=== PATIENT | male | born 1955 | race Caucasian/White ===

== ENCOUNTER → 2019-08-05 09:50 | Outpatient (BNVA) | payer MEDICARE, MEDICAID, SELFPAY | PROVIDERS: Family Provider Family Medicine; PCP Family Medicine; Visit Provider Anesthesiology | DX: G89.29 Other chronic pain (principal); M54.16 Radiculopathy, lumbar region; M19.90 Unspecified osteoarthritis, unspecified site; M79.651 Pain in right thigh; M79.652 Pain in left thigh; F17.210 Nicotine dependence, cigarettes, uncomplicated; Z79.891 Long term (current) use of opiate analgesic | CPT/HCPCS: 99214 ==

== ENCOUNTER → 2019-10-01 09:36 | Outpatient (BNVA) | payer MEDICARE, MEDICAID, SELFPAY | PROVIDERS: Family Provider Family Medicine; PCP Family Medicine; Visit Provider Nurse Practitioner | DX: M54.16 Radiculopathy, lumbar region (principal); F17.210 Nicotine dependence, cigarettes, uncomplicated; Z71.6 Tobacco abuse counseling; Z79.891 Long term (current) use of opiate analgesic | CPT/HCPCS: 99213; 99214 ==

== ENCOUNTER → 2019-12-04 10:40 | Outpatient (BNVA) | payer MEDICARE, MEDICAID, SELFPAY | PROVIDERS: Family Provider Family Medicine; PCP Family Medicine; Visit Provider Anesthesiology | DX: G89.29 Other chronic pain (principal); M54.16 Radiculopathy, lumbar region; M54.17 Radiculopathy, lumbosacral region; M54.9 Dorsalgia, unspecified; M19.90 Unspecified osteoarthritis, unspecified site; F17.210 Nicotine dependence, cigarettes, uncomplicated; Z79.891 Long term (current) use of opiate analgesic; Z71.6 Tobacco abuse counseling | CPT/HCPCS: 99214 ==

== ENCOUNTER → 2019-12-30 10:24 | Outpatient (BNVA) | payer MEDICARE, MEDICAID, SELFPAY | PROVIDERS: Family Provider Family Medicine; PCP Family Medicine; Visit Provider Anesthesiology | DX: G89.29 Other chronic pain (principal); M54.16 Radiculopathy, lumbar region; M54.9 Dorsalgia, unspecified; F17.210 Nicotine dependence, cigarettes, uncomplicated; Z79.891 Long term (current) use of opiate analgesic | CPT/HCPCS: 99213; 99214 ==

== ENCOUNTER → 2020-03-10 14:26 | Outpatient (BNVA) | payer MEDICARE, MEDICAID, SELFPAY | PROVIDERS: Family Provider Family Medicine; PCP Family Medicine; Visit Provider Anesthesiology | DX: G89.29 Other chronic pain (principal); M54.16 Radiculopathy, lumbar region; M54.17 Radiculopathy, lumbosacral region; M54.9 Dorsalgia, unspecified; F17.210 Nicotine dependence, cigarettes, uncomplicated; Z79.891 Long term (current) use of opiate analgesic | CPT/HCPCS: 99213; 99214 ==

== ENCOUNTER 2020-03-23 09:18 | Outpatient (CLI) | payer MEDICARE, MEDICAID, SELFPAY ==
--- NOTE | 2020-03-23 09:23 | CT_ITS ---
WS: [id number] LDCT LUNG CANCER SCREENING TECHNIQUE: Noncontrast CT of the chest with coronal and sagittal reformatted images. CLINICAL INFORMATION: NICOTINE DEPENDENCE,CIGARETTES COMPARISON: None. DLP: 57.92 mGy.cm DIvol: 1.[address] scans at [facility] use at least one of these dose optimization techniques: automat ed exposure control; mA and/or kV adjustment per patient size (includes targeted exams where dose is matched to clinical indication); or iterative reconstruction. FINDINGS: No suspicious pulmonary parenchymal normalities. Slight atelectasis in lung bases. Aortic calcificati on. No mediastinal or hilar lymphadenopathy. No axillary lymphadenopathy. Chronic anterior wedging in the mid thoracic spine appears unchanged since 2016. CT/CT lung screening [id number] IMPRESSION: LUNG-RADS: 1-Negative FOLLOW UP: 12 Month: Continue annual screening with LDCT
== END 2020-03-23 09:19 | disposition home or self-care (01) ==
LOC: CT 09:20
PROVIDERS: PCP Family Medicine; Visit Provider Family Medicine
DX: Z12.2 Encounter for screening for malignant neoplasm of respiratory organs (principal); F17.210 Nicotine dependence, cigarettes, uncomplicated
CPT/HCPCS: G0297

== ENCOUNTER → 2020-05-10 15:23 | Outpatient (BNVA) | payer MEDICARE, MEDICAID, SELFPAY | PROVIDERS: PCP Family Medicine; Referring Provider Family Medicine; Visit Provider Dermatology | DX: R21 Rash and other nonspecific skin eruption (principal) | CPT/HCPCS: 87220 ==

== ENCOUNTER → 2020-06-01 11:31 | Outpatient (BNVA) | payer MEDICARE, MEDICAID, SELFPAY | PROVIDERS: PCP Family Medicine; Visit Provider Nurse Practitioner | DX: G89.29 Other chronic pain (principal); M25.512 Pain in left shoulder; M54.16 Radiculopathy, lumbar region; M54.17 Radiculopathy, lumbosacral region; M54.9 Dorsalgia, unspecified; F17.210 Nicotine dependence, cigarettes, uncomplicated; Z79.891 Long term (current) use of opiate analgesic | CPT/HCPCS: 99213; 99214 ==

== ENCOUNTER → 2020-06-03 11:30 | Outpatient (BNVA) | payer MEDICARE, MEDICAID, SELFPAY | PROVIDERS: PCP Family Medicine; Visit Provider Nurse Practitioner Family | DX: M54.17 Radiculopathy, lumbosacral region (principal); I50.32 Chronic diastolic (congestive) heart failure; E78.00 Pure hypercholesterolemia, unspecified | CPT/HCPCS: 80053; 80061; 84439; 84443; 84481 ==

== ENCOUNTER 2020-06-11 14:46 | Outpatient (CLI) | payer MEDICARE, MEDICAID, SELFPAY ==
--- NOTE | 2020-06-11 15:00 | USCV_ITS ---
Jose Luis Kessler Age: 64 Gender: M : 1955 Exam Date: 06/11/2020 14:57 Ordering Phys: Nasra Diaz Technologist: Evelyn Ervin Exam Location: [facility] – [place] Indication: SOB AND WEIGHT GAIN BP: 130 / 70 HR: 77 Rhythm: Sinus Technical Quality: Adequate MEASUREMENTS (Male / Female) Normal Values 2D ECHO LV Diastolic Diameter PLAX 2.9 cm 4.2 - 5.9 / 3.9 - 5.3 cm LV Systolic Diameter PLAX 2.2 cm LV Chamber Size 2.9 cm IVS Diastolic Thickness 1.0 cm 0.6 - 1.0 / 0.6 - 0.9 cm IVS Systolic Thickness 1.6 cm LVPW Diastolic Thickness 1.0 cm 0.6 - 1.0 / 0.6 - 0.9 cm LVPW Systolic Thickness 1.7 cm RV Chamber Size 2.7 cm LVOT Diameter 2.0 cm LV Ejection Fraction 2D Teich 45.3 % LV Ejection Fraction MOD 2C 59.3 % LV Ejection Fraction 2C AL 60.5 % LA Diameter 3.5 cm LA Width 3.2 cm LA Height 3.3 cm RA Width 2.4 cm RA Height 3.7 cm Aorta at Sinotubular Diameter 3.1 cm M-MODE LV Diastolic Diameter MM 4.2 cm 4.2 - 5.9 / 3.9 - 5.3 cm LV Systolic Diameter MM 2.8 cm LV Ejection Fraction MM Teich 61.9 % IVS Diastolic Thickness MM 1.1 cm 0.6 - 1.0 / 0.6 - 0.9 cm IVS Systolic Thickness MM 1.3 cm LVPW Diastolic Thickness MM 1.5 cm 0.6 - 1.0 / 0.6 - 0.9 cm LVPW Systolic Thickness MM 1.6 cm RV Diastolic Diameter MM 0.9 cm Aortic Annulus Diameter 3.5 cm LA Ao Ratio MM 1.1 MV E Point Septal Separation 0.7 cm DOPPLER AV Peak Velocity 129.0 cm/s LVOT Peak Velocity 105.0 cm/s AV Area Cont Eq vti 2.8 cm squared AV Area Cont Eq pk 2.7 cm squared MV Area PHT 3.9 cm squared Mitral E to A Ratio 0.9 MV E' Velocity 54.0 cm/s Mitral E to MV E' Ratio 11.1 Mitral E to LV E' Lateral Ratio 11.9 Mitral E to LV E' Septal Ratio 10.5 TR Peak Velocity 244.3 cm/s TR Peak Gradient 23.9 mmHg TR Mean Velocity 207.5 cm/s TR Mean Gradient 18.7 mmHg TR Velocity Time Integral 81.9 cm TV Peak E Velocity 53.0 cm/s Right Atrial Pressure 3.0 mmHg Pulmonary Artery Systolic Pressu 26.9 mmHg PV Peak Velocity 60.0 cm/s RV Acceleration Time 0.1 s RV Ejection Time 0.3 s RV AcT/ET 0.4 FINDINGS Left Ventricle Normal left ventricular cavity size. Normal left ventricular systolic function. No regional wall motion abnormalities. Left ventricular ejection fraction is estimated at 61 %. Grade I/IV diastolic dysfunction (abnormal relaxation filling pattern), normal to mildly elevated filling pressures. Right Ventricle The right ventricle is normal in size and function. Right Atrium The right atrium is normal in size. Left Atrium The left atrium is normal in size. Mitral Valve Moderately thickened mitral valve. Severe mitral annular calcification. No mitral valve stenosis. Mild to moderatre mitral valve regurgitation. Aortic Valve Structurally normal aortic valve without significant sclerosis or stenosis. There is no aortic regurgitation. Tricuspid Valve Mild tricuspid valve regurgitation. Pulmonic Valve Structurally normal pulmonic valve without significant stenosis. There is no pulmonic regurgitation. Pericardium Normal pericardium without effusion. Aorta Normal ascending aorta dimension. CONCLUSIONS 1-Normal left ventricular cavity size. Normal left ventricular systolic function. No regional wall motion abnormalities. Left ventricular ejection fraction is estimated at 61 %. Grade I/IV diastolic dysfunction (abnormal relaxation filling pattern), normal to mildly elevated filling pressures. 2-Structurally normal aortic valve without significant sclerosis or stenosis. There is no aortic regurgitation. 3-Moderately thickened mitral valve. Severe mitral annular calcification. No mitral valve stenosis. Mild to moderatre mitral valve regurgitation. 4-Mild tricuspid valve regurgitation. 5-There is no pericardial effusion. 6-Pulmonary artery systolic pressure is within normal limits. 7-When compared to the prior echocardiogram dated August 17, 2015 there is mild to moderate mitral valve regurgitation and severe mitral annulus calcification now Luis Irvin MD (Electronically Signed) Final Date: 11 June 2020 20:48 S
== END 2020-06-11 14:47 | disposition home or self-care (01) ==
LOC: US 14:47
PROVIDERS: PCP Family Medicine; Visit Provider Nurse Practitioner Family
DX: I50.32 Chronic diastolic (congestive) heart failure (principal); R06.02 Shortness of breath; I08.1 Rheumatic disorders of both mitral and tricuspid valves; R63.5 Abnormal weight gain
CPT/HCPCS: 80048; 83880; 93306

== ENCOUNTER → 2020-07-27 08:39 | Outpatient (BNVA) | payer MEDICARE, MEDICAID, SELFPAY | PROVIDERS: PCP Family Medicine; Visit Provider Nurse Practitioner | DX: G89.29 Other chronic pain (principal); M54.16 Radiculopathy, lumbar region; M54.17 Radiculopathy, lumbosacral region; M54.9 Dorsalgia, unspecified; M79.673 Pain in unspecified foot; F17.210 Nicotine dependence, cigarettes, uncomplicated; Z79.891 Long term (current) use of opiate analgesic | CPT/HCPCS: 99213 ==

== ENCOUNTER → 2020-08-04 10:07 | Outpatient (BNVA) | payer MEDICARE, MEDICAID, SELFPAY | PROVIDERS: PCP Family Medicine; Referring Provider Family Medicine; Visit Provider Podiatrist Foot & Ankle Surgery | DX: M79.672 Pain in left foot (principal); M21.612 Bunion of left foot; M19.072 Primary osteoarthritis, left ankle and foot | CPT/HCPCS: 73630 ==

== ENCOUNTER → 2020-09-24 10:07 | Outpatient (BNVA) | payer MEDICARE, MEDICAID, SELFPAY | PROVIDERS: PCP Family Medicine; Visit Provider Anesthesiology | DX: G89.29 Other chronic pain (principal); M54.16 Radiculopathy, lumbar region; M54.17 Radiculopathy, lumbosacral region; M54.9 Dorsalgia, unspecified; F17.210 Nicotine dependence, cigarettes, uncomplicated; Z79.891 Long term (current) use of opiate analgesic | CPT/HCPCS: 99213 ==

== ENCOUNTER 2020-10-05 14:21 | Outpatient (CLI) | payer MEDICARE, MEDICAID, SELFPAY | END 2020-10-05 14:22 | disposition home or self-care (01) | LOC: WOUND 14:23 | PROVIDERS: PCP Family Medicine; Visit Provider Thoracic Surgery (Cardiothoracic Vascular Surgery) | DX: L97.522 Non-pressure chronic ulcer of other part of left foot with fat layer exposed (principal) | CPT/HCPCS: 11042; G0463 ==

== ENCOUNTER 2020-10-19 13:37 | Outpatient (CLI) | payer MEDICARE, MEDICAID, SELFPAY | END 2020-10-19 13:38 | disposition home or self-care (01) | LOC: WOUND 13:38 | PROVIDERS: PCP Family Medicine; Visit Provider Thoracic Surgery (Cardiothoracic Vascular Surgery) | DX: L97.522 Non-pressure chronic ulcer of other part of left foot with fat layer exposed (principal) | CPT/HCPCS: 11042 ==

== ENCOUNTER 2020-10-26 13:10 | Outpatient (CLI) | payer MEDICARE, MEDICAID, SELFPAY | END 2020-10-26 13:11 | disposition home or self-care (01) | PROVIDERS: PCP Family Medicine; Visit Provider Thoracic Surgery (Cardiothoracic Vascular Surgery) | DX: L97.522 Non-pressure chronic ulcer of other part of left foot with fat layer exposed (principal); Z20.822 Contact with and (suspected) exposure to COVID-19; Z11.52 Encounter for screening for COVID-19 | CPT/HCPCS: 11042; 87635 ==

== ENCOUNTER 2020-10-26 14:26 | Outpatient (CLI) | payer MEDICARE, MEDICAID, SELFPAY ==
[2020-10-26 14:58] LABS: Basophils % 0.4 %; Eosinophils # 0.2 10^3/uL (0.0-0.8); Eosinophils % 1.6 %; Hematocrit 43.8 % (42.0-52.0); Hemoglobin 14.6 g/dL (11.7-16.6); Lymphocytes # 2.2 10^3/uL (0.8-4.8); Mean Corpuscular HGB Conc 33.3 g/dL (30.0-36.0); Mean Corpuscular Hemoglobin 31.2 pg (28.0-34.0); Mean Corpuscular Volume 93.6 fL (80-94); Mean Platelet Volume 9.7 fL (7.4-10.4); Monocytes # 0.6 10^3/uL (0.2-0.9); Monocytes % 5.7 %; Neutrophils # 7.37 10^3/uL (1.8-7.7); Nucleated Red Blood Cells % 0 %; Platelet Count 238 10^3/cmm (130-400); Red Blood Count 4.68 10^6/uL (4.1-5.3); Red Cell Distribution Width 13.4 % (12.1-15.1); White Blood Count 10.4 10^3/uL (4.0-10.0)
[2020-10-26 15:13] LABS: INR 1.06 (0.83-1.21); Prothrombin Time (Patient) 14.1 Seconds (12.0-15.1)
[2020-10-26 15:19] LABS: Anion Gap 13.8 (5-19); Blood Urea Nitrogen 19 mg/dL (8-23); Calcium 9.5 mg/dL (8.5-10.5); Carbon Dioxide 33 mmol/L (22-29); Chloride 98 mmol/L (98-107); Glomerular Filtration Rate 66.8 mL/min (90-130); Glucose 131 mg/dL (65-115); Osmolality Calculated 296 mOsm/kg (285-295); Potassium 3.8 mmol/L (3.5-5.1); Sodium 141 mmol/L (136-145)
== END 2020-10-26 14:27 | disposition home or self-care (01) ==
PROVIDERS: PCP Family Medicine; Visit Provider Internal Medicine Cardiovascular Disease
DX: I73.9 Peripheral vascular disease, unspecified (principal)
CPT/HCPCS: 80048; 85025; 85610

== ENCOUNTER 2020-11-01 08:56 | Day surgery (SDC) | payer MEDICARE, MEDICAID, SELFPAY ==
[2020-11-01] VITALS (51 sets, daily range): BP systolic 112–164; BP diastolic 62–106; PULSE 76–92; RESP 13–37; TEMP 36.6; O2SAT 90–94; BMI 35.6
--- NOTE | 2020-11-01 09:00 | XACV_ITS ---
Ht: 175 cm Wt: 109 kg BSA: 2.35 m2 Any Known Allergies: Other Gender: Male : 1955 Exam Type: Invasive Peripheral Vascular Procedure(s): Procedure Description: Peripheral Cath Diagnostic Procedure Procedure Description: Abdominal aortic angiography Procedure Description: Lower extremities' angiography Exam Priority: Routine Lower Extremity Diagnostic Findings Reason for peripheral angiogram: Critical limb ischemia of left foot/nonhealing ulcerThrough right common femoral approach abdominal aortic angiogram was performed. Abdominal aortic luminal irregularity without aneurysm. Renal arteries not well visualizedRight common iliac proximal moderate lesion, right external iliac has mild to moderate proximal lesion, right common femoral profundofemoral SFA popliteal and tibioperoneal trunk has luminal irregularity without significant stenosis. Below the knee three-vessel runoff noted.Left common iliac luminal irregularity, left external/internal iliac luminal irregularity, left common femoral luminal irregularity left profundofemoral luminal irregularity. Left SFA flush occluded from ostial to distal segment collateral seen to reconstitute mid popliteal artery from profunda. Tibioperoneal trunk with two-vessel runoff visualized posterior tibial artery possible occluded in the proximal to mid segment reconstituting the distal. Anterior tibial not well visualized after the proximal segment.. Lower Extremity Interventional Findings Unsuccessful attempt to cross the SFA was performed . Due to flush occlusion of the SFA were not able to cross the ostium . We will bring patient back for popliteal approach .. Recommendations Usual post-cath care, stage percutaneous intervention through popliteal approach of the left SFA. Hemodynamic Data Phase:Rest AO : 103.0 / 60.0 ( 81.0 ) @ 10:20:00 AM 118.0 / 56.0 ( 83.0 ) @ 10:45:00 AM Access Site Site: Right Femoral artery Sheath Size: 6 Fr Hemost... Method: Suture Hemost... Success: Successful Procedure Details Findings Procedure Consent Obtained. Pre-Procedure Time Out. Identified patient by full name and date of as verbalized by the patient/guarantor. Does the consent match the physician's order: Yes. Accurate & Complete Informed Consent: Yes. Inpatient/Outpatient History & Physical on Chart: Yes. If H&P is completed, is and addenduem needed: N/A; If yes, is the addendum complete: N/A. Visualize and Verify Site with Patient/Guarantor: N/A. Relevant Radiology Images available: Yes. Pre-op teaching completed and patient verbalized understanding. The risks, benefits, and alternatives of sedation and/or procedure were discussed by physician. The patient agrees to continue. PERRLA. Strong, equal hand head porter bilaterally. Lungs clear x 5 lobes. IV Fluids: 0.9% NaCl at KVO. 0 mL infused prior to rd lab technician. Oxygen started at 2liters/min via nasal canula. bilateral groins was prepped with chloroprep then draped in the usual sterile fashion. Procedure started. Physician arrived. Baseline sample Acquired. HR: 82 BPM. Equipment: 6F - Femoral. Cardiac Cath Pack. ACIST Manifold Kit Model BT 2000. Heparinized Saline (2 units/mL), 1000 mL bag. Kit, Micropuncture. Physician scrubbed in. Immediate Pre-Procedure Time Out. Correct Patient: Yes; Correct Procedure: Yes; Correct Site: Yes; Correct Patient Position: Yes; Correct Supplies: Yes; Dried Flammable Prep: Yes; Blood Products Available: No;. Lidocaine 1% infiltrated to the right groin. Arterial access obtained with micropuncture set. A 5FrFr UF catheter in over wire. Abdominal aortogram performed in AP @ 10 mL/sec for a total of 30 mL. glide wire inserted. left leg runoff 10ml/sec for a total of 30ml. glidewire inserted. Catheter out. 6fr short sheath exchanged for a 6fr long sheath. Anesthesiologist Paged. hand injection through sheath. glidewire out. posterior tibial area was prepped with chloroprep then draped in the usual sterile fashion. Lidocaine 1% infiltrated to the left pt. ultrasound arrived. Sheath upsized to a 6 Fr. Sheath injected in Right common femoral artery and runoff performed. Sheath(s) sutured into position with 2-0 silk and sterile 4x4's and Op-site applied over the site. No oozing or signs and symptoms of hematoma noted. Arterial sheath flushed and connected to tranducer and pressure bag with heparinized saline. Post Procedure: Pulses reassessed and unchanged. PERRLA. Strong, equal hand head porter bilaterally. No VTE prophylaxis required. A Suture was successful obtaining hemostatsis at the Right Femoral artery insertion site. Medication's Wasted: Heparin = 4000 units. Medication's Wasted: Other = Fentanyl 50mcg Versed 1 mg. Total IV fluids: 100 mL. Contrast type used: Visipaque 320 mgI/mL, 500 mL bottle. Estimated blood loss: 5mL-10mL. Procedure completed. Patient transferred by bed to 1st floor. Procedure Medications Start: 10:57 AM Stop: 10:57 AM Medication: Versed Amount: 1 mg Route: I.V. Start: 10:57 AM Stop: 10:57 AM Medication: Fentanyl Amount: 50 mcg Route: I.V. Start: 11:02 AM Stop: 11:02 AM Medication: Versed Amount: 1 mg Route: I.V. Start: 11:02 AM Stop: 11:02 AM Medication: Fentanyl Amount: 50 mcg Route: I.V. Start: 11:08 AM Stop: 11:08 AM Medication: Versed Amount: 1 mg Route: I.V. Start: 11: AM Stop: AM Medication: Fentanyl Amount: 50 mcg Route: I.V. Start: 11: AM Stop: AM Medication: Versed Amount: 1 mg Route: I.V. Start: : AM Stop: AM Medication: Fentanyl Amount: 50 mcg Route: I.V. Start: : AM Stop: AM Medication: Fentanyl Amount: 50 mcg Route: I.V. Start: : AM Stop: AM Medication: Heparin Amount: 5000 units Route: I.V. Start: 11:33 AM Stop: : AM Medication: Versed Amount: 1 mg Route: I.V. Start: 11: AM Stop: :33 AM Medication: Fentanyl Amount: 50 mcg Route: I.V. I, the attending physician, have reviewed and verified all procedure medications. Yes, all medications given per verbal order History/Risk Factors Hypertension: Yes Dyslipidemia: Yes Peripheral Arterial Disease (PAD): Yes Obesity: Yes Renal Disease: No Tobacco Use: Current/Recent(w/in 1 year) Prior Interventions PCI: No CABG: No Valve Surgery: No Report Signatures Finalized by Luis Irvin MD on 11/09/2020 09:51 PM
--- NOTE | 2020-11-01 11:02 | W.PM.OPSUD ---
Surgery/Procedure H&P Update DATE OF PROCEDURE: November 01, 2020 DATE H&P PERFORMED: 10/18/20 H&P UPDATE INFORMATION: I have reviewed H&P completed within last 30 days, I have examined patient prior to procedure and No changes to prior documentation PREOP DIAGNOSIS: Critical limb ischemia of left foot PLANNED PROCEDURE: Operation Date: 11/01/20 10:00 Proposed Procedures p Peripheral Diagnostic 17952 i73.9(Not Applicable) - Luis Irvin MD PATIENT REASSESSED PRIOR TO SEDATION, WITH NO CHANGE NOTED: Yes PHYSICAL EXAM: alert, oriented x 3, clear to auscultation bilaterally and regular rate & rhythm AIRWAY EVAL/ANESTHESIA PLAN: ASA II, Risks, benefits & alternatives of sedation and/or procedure discussed and Patient agrees to continue as planned
--- NOTE | 2020-11-01 12:30 | PC.NURSE ---
Received patient from clinical laboratory aide. Patient has 6f sheath in R groin with pressure bag connected. Patient dressing is intact and no drainage present. Dorsalis pedis and postreior tibial pulses both doppled bilaterally and are faint, but present. VS are stable, patient is resting with eyes closed, even and unlabored breathing.
[2020-11-01] MEDS: gabapentin 400 mg Capsule 800 MG PO ×2 (15:02→20:53)
[2020-11-01 15:18] LABS: Partial Thromboplastin Time 25.9 SECONDS (23.9-36.7)
[2020-11-01] MEDS: fentaNYL 50 mcg/mL INJ 2mL IVP (16:50)
--- NOTE | 2020-11-01 16:55 | PC.NURSE ---
Patient pre-medicated with Fentanyl. Manual pressure held et right femoral sheath removed. Will maintain manual pressure until hemostatsis achieved.
--- NOTE | 2020-11-01 17:15 | PC.NURSE ---
Right groin site covered with pressure dressing. No bleeding or hematoma present. Educated patient on keeping right leg straight et HOB <30 degrees for 6 hours. Patient tolerated well.
[2020-11-01] MEDS: ketoconazole Cream 15 gm 1 APPLIC TOPICAL (17:47)
--- NOTE | 2020-11-01 18:40 | PC.RESP ---
SMOKING CESSATION AND PULMONARY REHAB INFORMATION SENT TO PATIENT.
[2020-11-01] MEDS: trazodone 100 mg Tablet 200 MG PO (20:53)
[2020-11-01] MEDS: oxyCODONE 5 mg IR Tab/Cap 10 MG PO (20:53)
[2020-11-01] MEDS: sodium chloride 0.9% 1,000 ML 100 ML IV (22:14)
[2020-11-02] VITALS (14 sets, daily range): BP systolic 106–128; BP diastolic 54–71; PULSE 81–88; RESP 18–31; TEMP 36.4–36.9; O2SAT 91–98
[2020-11-02] MEDS: temazepam 15 mg Capsule PO (02:36)
[2020-11-02] MEDS: oxyCODONE 5 mg IR Tab/Cap 10 MG PO (02:45)
[2020-11-02 04:48] LABS: Basophils % 0.4 %; Eosinophils # 0.2 10^3/uL (0.0-0.8); Eosinophils % 2.4 %; Hematocrit 41.1 % (42.0-52.0); Hemoglobin 13.4 g/dL (11.7-16.6); Lymphocytes # 2.2 10^3/uL (0.8-4.8); Lymphocytes % 22.1 %; Mean Corpuscular HGB Conc 32.6 g/dL (30.0-36.0); Mean Corpuscular Hemoglobin 30.8 pg (28.0-34.0); Mean Corpuscular Volume 94.5 fL (80-94); Mean Platelet Volume 10.1 fL (7.4-10.4); Monocytes # 0.6 10^3/uL (0.2-0.9); Monocytes % 5.7 %; Neutrophils % 69.1 %; Nucleated Red Blood Cells % 0 %; Platelet Count 221 10^3/cmm (130-400); Red Blood Count 4.35 10^6/uL (4.1-5.3); Red Cell Distribution Width 13.2 % (12.1-15.1); White Blood Count 9.8 10^3/uL (4.0-10.0)
[2020-11-02 05:05] LABS: Anion Gap 11.1 (5-19); Blood Urea Nitrogen 18 mg/dL (8-23); Calcium 8.7 mg/dL (8.5-10.5); Carbon Dioxide 28 mmol/L (22-29); Chloride 106 mmol/L (98-107); Glomerular Filtration Rate 96.4 mL/min (90-130); Glucose 96 mg/dL (65-115); Osmolality Calculated 294 mOsm/kg (285-295); Potassium 4.1 mmol/L (3.5-5.1); Sodium 141 mmol/L (136-145)
--- NOTE | 2020-11-02 07:07 | PC.NURSE ---
Pt presents lying in bed resting and talking to staff. Pt A&O x4. Resp even and non-labored no distress noted. Pt had no c/o pain or discomfort at the present time. No needs voiced. Call light in reach.
[2020-11-02] MEDS: clopidogrel 75 mg Tablet PO (08:07)
[2020-11-02] MEDS: FUROsemide 40 mg Tablet PO (08:07)
[2020-11-02] MEDS: hydroCHLOROthiazide 25 mg Tablet 12.5 MG PO (08:08)
[2020-11-02] MEDS: lisinopril 10 mg Tablet PO (08:08)
[2020-11-02] MEDS: gabapentin 400 mg Capsule 800 MG PO (08:09)
[2020-11-02] MEDS: sodium chloride 0.9% 1,000 ML 100 ML IV (08:10)
[2020-11-02] MEDS: ketoconazole Cream 15 gm 1 APPLIC TOPICAL (08:14)
[2020-11-02] MEDS: HYDROcodone-acetaminophen 5-325 mg Tablet 1 TAB PO (08:18)
--- NOTE | 2020-11-02 10:52 | PC.NURSE ---
Pt discharged home. Pts IV removed no redness or swelling noted. Pts discharge instructions given along with prescriptions and follow up appointments. Pt verbalized understanding. Pt had no c/o pain or discomfort at the time of discharge.
== END 2020-11-02 10:47 | disposition home or self-care (01) ==
LOC: CCL 12:18 → CSU 11-02 07:06 → CCL 11-08 06:13
PROVIDERS: PCP Family Medicine; Visit Provider Internal Medicine Cardiovascular Disease
DX: I70.222 Atherosclerosis of native arteries of extremities with rest pain, left leg (principal); I10 Essential (primary) hypertension; E78.5 Hyperlipidemia, unspecified; E66.9 Obesity, unspecified; Z68.35 Body mass index [BMI] 35.0-35.9, adult; Z79.52 Long term (current) use of systemic steroids; M19.90 Unspecified osteoarthritis, unspecified site; J43.9 Emphysema, unspecified; F17.210 Nicotine dependence, cigarettes, uncomplicated
CPT/HCPCS: 36415; 75625; 75716; 80048; 85025; 85730; C1769; C1887; C1894; J1644; J2250; J3010; J7030; Q9967

== ENCOUNTER 2020-11-03 13:16 | Outpatient (CLI) | payer MEDICARE, MEDICAID, SELFPAY | END 2020-11-03 13:17 | disposition home or self-care (01) | LOC: WOUND 13:17 | PROVIDERS: PCP Family Medicine; Visit Provider Thoracic Surgery (Cardiothoracic Vascular Surgery) | DX: L97.522 Non-pressure chronic ulcer of other part of left foot with fat layer exposed (principal) | CPT/HCPCS: 11042 ==

== ENCOUNTER 2020-11-08 06:45 | Day surgery (SDC) | payer MEDICARE, MEDICAID, SELFPAY ==
[2020-11-08] VITALS (40 sets, daily range): BP systolic 101–149; BP diastolic 63–100; PULSE 70–100; RESP 12–33; TEMP 36.6–37; O2SAT 87–100; BMI 35.6
--- NOTE | 2020-11-08 06:00 | XACV_ITS ---
Ht: 175 cm Wt: 109 kg BSA: 2.35 m2 Any Known Allergies: Other Gender: Male : 1955 Exam Type: Invasive Peripheral Vascular Procedure(s): Procedure Description: Peripheral Cath Diagnostic Procedure Exam Priority: Routine Lower Extremity Interventional Findings Reason for peripheral angiogram and attempted intervention was critical limb ischemia. Patient was brought in after failing the contralateral approach for the popliteal approach. After somewhat difficulty we were able to enter in the popliteal artery however we were not able to cross the lesion. Patient has diffusely diseased vessel which may not be able to intervene percutaneously. We will refer the patient for surgery in order to consider bypass.. Access Site Site: Left Popliteal Sheath Size: 6 Fr Hemost... Method: Manual Compression Hemost... Success: Successful Procedure Details Findings Procedure Consent Obtained. Pre-Procedure Time Out. Identified patient by full name and date of as verbalized by the patient/guarantor. Does the consent match the physician's order: Yes. Accurate & Complete Informed Consent: Yes. Inpatient/Outpatient History & Physical on Chart: Yes. If H&P is completed, is and addenduem needed: No; If yes, is the addendum complete: N/A. Visualize and Verify Site with Patient/Guarantor: N/A. Relevant Radiology Images available: N/A. Pre-op teaching completed and patient verbalized understanding. The risks, benefits, and alternatives of sedation and/or procedure were discussed by physician. The patient agrees to continue. Doron INJURY/SAFETY HAZARD ASSESSMENT present for procedure to sedate patient and manage airway. Procedure started. Correct patient, site and procedure confirmed by cath team. PERRLA. Strong, equal hand supervisor salvage bilaterally. Lungs clear x 5 lobes. Pre op diagnosis: PVD, lifestyle limiting claudication. IV Site on Arrival: 20 gauge in the left anticubital. IV Fluids: 0.9% NaCl at KVO. 0 mL infused prior to collaborative physician. Pre Procedural Pulses: bilateral dorsalis pedis was Doppled. Pre Procedural Pulses: bilateral posterior tibial was Doppled. Pre Procedural Pulses: bilateral radial was 1+. Oxygen started at 2liters/min via nasal canula. Baseline sample Acquired. HR: 78 BPM. popliteal was prepped with chloroprep then draped in the usual sterile fashion. Physician arrived. Equipment: Peripheral. Cardiac Cath Pack. ACIST Manifold Kit Model BT 2000. Heparinized Saline (2 units/mL), 1000 mL bag. Physician scrubbed in. Time out performed with cath team. Ultrasound machine used for procedure. Lidocaine 1% infiltrated to the popliteal. Called Juan Carlos from ultrasound to come assist with this ultrasound machine. Juan Carlos (mold tooling technician) arrived to assist. Arterial access obtained with micropuncture set. Wire and needle out. Arterial access obtained with micropuncture set. Wire and needle out. Unable to obtain adequate access using popliteal approach. Physician moving to Tibial approach. Unable to obtain access in Tibial approach. Arterial access obtained in popliteal with micropuncture set. Lidocaine 1% infiltrated to the popliteal. Glidewire inserted through micropuncture dilator. Glidewire out. Hand injection performed. Glidewire inserted through micropuncture dilator. SEEKER support catheter inserted over wire to be used to advance wire through SFA. Side port of sheath attached to Normal Saline flush at KVO to maintain patency. Glidewire out. Hand injection performed. Hand injection performed. Glidewire inserted. Glidewire out. Hand injection performed. Catheter out. A Manual Compression was successful obtaining hemostatsis at the Left Popliteal insertion site. Sheath removed. Manual pressure held. Sheath(s) removed and manual pressure held until hemostasis was achieved. Sterile 4x4 and Op-site applied to the puncture site. No oozing or hematoma noted. Post sheath removal instructions were given and the patient verbalized understanding. Post Procedure: Pulses reassessed and unchanged. PERRLA. Strong, equal hand supervisor salvage bilaterally. No VTE prophylaxis required. Physician scrubbed out. Post-op diagnosis: severe PVD, critical limb ischemia. Complications: none. Medication's Wasted: Lidocaine 1% = 4 mL. Medication's Wasted: Heparin = 1000 units. Total IV fluids: 500 mL. Contrast type used: Visipaque 320 mgI/mL, 500 mL bottle. Estimated blood loss: 5mL-10mL. Procedure completed. Patient transferred by bed to 1st floor. Vital chart was stopped. I, the attending physician, have reviewed and verified all procedure medications. Yes, all medications given per verbal order History/Risk Factors Hypertension: Yes Dyslipidemia: Yes Peripheral Arterial Disease (PAD): Yes Obesity: Yes Renal Disease: No Tobacco Use: Current/Recent(w/in 1 year) Prior Interventions PCI: No CABG: No Valve Surgery: No Report Signatures Finalized by Luis Irvin MD on 11/20/2020 10:14 PM
[2020-11-08] MEDS: diphenhydrAMINE 50 mg Capsule PO (06:49)
--- NOTE | 2020-11-08 06:52 | ANES.PREANE2 ---
Pre-Anesthetic Assessment Pre-Anesthetic Assessment: Height/Weight: Height 1.75 m Weight 109.316 kg Temp Pulse Resp BP Pulse Ox 98.6 F 86 16 113/63 91 11/08/20 06:39 11/08/20 06:39 11/08/20 06:39 11/08/20 06:39 11/08/20 06:39 Preop Diagnosis: Critical limb ischemia of left foot Proposed Procedure: Operation Date: 11/08/20 07:00 Proposed Procedures p Peripheral Diagnostic 66019 I73.9(Not Applicable) - Luis Irvin MD Was Beta Ronaldo taken within 24 hours: N/A Was Clonidine taken within 24 hours: N/A Social: Social History: Alcohol (history but doesnt drink much now cause of pain management) and Tobacco Packs per day: 1 Pack years: 50 Exam: Pre-Anes Outpt Exam: alert, oriented x 3, clear to auscultation bilaterally and regular rate & rhythm Airway: Submandibular: WNL Cervical ROM: WNL MP: 1 Dentition: False Pulmonary: Pulmonary: COPD (O2 at night), PAN and Sleep apnea CV/HEM: CV/HEM: CAD, CHF, HTN and PVD : : None reported Hepatic: Hepatic: None reported GI: GI: None reported Metabolic: Metabolic: Hyperlipidemia and Morbid obesity Musc/skel: Musc/skel: None reported Neuropsych: Neuropsych: TIA Anesthetic Plan: ASA status: 2 Anesthesia: MAC Risk of > 500 ml blood loss (7ml/kg in children): No PFSH Anesthesia PFSH: Medical History (Updated 10/22/20 @ 20:04 by Luis Irvin MD) Arthritis Chronic radicular low back pain COPD (chronic obstructive pulmonary disease) Emphysema lung HTN (hypertension) Hypercholesterolemia Hyperlipidemia Long-term current use of opiate analgesic Neuropathy Pain management contract signed PVD (peripheral vascular disease) Status post amputation of finger Tobacco use disorder Surgical History History of back surgery S/P arterial stent (~2018) S/P knee surgery S/P rotator cuff repair (~06/12/14) Right / DR KIM Family History Father Liver disease Mother Cancer Other CAD (coronary artery disease) Diabetes Stroke Social History Smoking and tobacco status: current every day smoker cigarettes Packs smoked per day: 1 [ Other cigarette details: 3-4 CIGS DAY ] and pipe Alcohol intake: current Alcohol intake frequency: holidays/special occasions only Lives independently: Yes History of recent travel: No Data Anesthesia Cardiac Studies: No Data to Display
--- NOTE | 2020-11-08 07:24 | W.PM.OPSUD ---
Surgery/Procedure H&P Update DATE OF PROCEDURE: November 08, 2020 DATE H&P PERFORMED: 10/18/20 H&P UPDATE INFORMATION: I have reviewed H&P completed within last 30 days, I have examined patient prior to procedure and No changes to prior documentation PREOP DIAGNOSIS: Critical limb ischemia of left foot PRIMARY INDICATION FOR PROCEDURE: All risk benefit and alternative for the procedure including urgent emergent vascular surgery in case of acute leg, loss of limb including leg and foot, major minor bleeding requiring transfusion, infection, hematoma, contrast-induced nephropathy leading to transient or permanent dialysis were explained to the patient. Patient has been explained all risk benefit FDA warning of drug-coated balloon. He would like to proceed with it. PLANNED PROCEDURE: Operation Date: 11/08/20 07:00 Proposed Procedures p Peripheral Diagnostic 68854 I73.9(Not Applicable) - Luis Irvin MD ADDITIONAL INFORMATION: Please see anesthesia note as last time patient was not able to stay still during conscious sedation therefore we requested anesthesia service.
--- NOTE | 2020-11-08 10:22 | ANE.PACU2 ---
Inpatient post-anesthesia follow up: Airway intact: Yes Vital signs: Temperature 98.6 F Pulse Rate 86 Respiratory Rate 16 Blood Pressure 113/63 Pulse Oximetry 91 Oxygen Delivery Me thod Room Air Oxygen Flow Rate Fraction of Inspir ed Oxygen Hydration adequate: Yes Nausea and vomiting: No Pain level: 1 Mental status: Baseline
--- NOTE | 2020-11-08 10:44 | PC.NURSE ---
received from cardiac cytology laboratory manager at 1010.report received.pt is sleepy but easily awakened.sr on monitor.placed on o2 at 2 l/nc for o2 sats in high 80's.left popliteal site with drsg dry and intact.no hemtoma noted.dopplerable dp pulse left foot.unable to doppler left pt pulse.dr jonas aware.instructed in activity restrictions s/p popliteal arterie procedure...verb understanding.
[2020-11-08] MEDS: oxyCODONE 5 mg IR Tab/Cap 10 MG PO ×2 (14:56→20:59)
[2020-11-08] MEDS: gabapentin 400 mg Capsule 800 MG PO ×2 (14:56→21:00)
[2020-11-08] MEDS: trazodone 100 mg Tablet 200 MG PO (21:00)
--- NOTE | 2020-11-08 21:21 | PC.NURSE ---
NURSE NOTE: NOTIFIED DR. SKINNER AT THIS TIME TO ASK IF IT IS OK TO GIVE PATIENT HIS 2100 ELIQUIS. RECEIVED ORDERS FOR OK TO GIVE ELIQUIS AT THIS TIME.
[2020-11-08] MEDS: apixaban 5 mg Tablet 2.5 MG PO (21:25)
[2020-11-09 04:03] VITALS: BP 114/65; PULSE 88; RESP 20; TEMP 36.8; O2SAT 90
[2020-11-09 04:52] LABS: Basophils # 0.1 10^3/uL (0.0-0.1); Basophils % 0.5 %; Eosinophils # 0.3 10^3/uL (0.0-0.8); Lymphocytes # 2.7 10^3/uL (0.8-4.8); Lymphocytes % 25.8 %; Mean Corpuscular HGB Conc 32.5 g/dL (30.0-36.0); Mean Corpuscular Volume 95.2 fL (80-94); Mean Platelet Volume 9.7 fL (7.4-10.4); Monocytes # 0.7 10^3/uL (0.2-0.9); Monocytes % 6.2 %; Neutrophils # 6.77 10^3/uL (1.8-7.7); Neutrophils % 64.3 %; Nucleated Red Blood Cells % 0 %; Platelet Count 225 10^3/cmm (130-400); Red Cell Distribution Width 13.2 % (12.1-15.1); White Blood Count 10.5 10^3/uL (4.0-10.0)
[2020-11-09 05:07] LABS: Anion Gap 10.2 (5-19); Blood Urea Nitrogen 24 mg/dL (8-23); Calcium 9.3 mg/dL (8.5-10.5); Carbon Dioxide 33 mmol/L (22-29); Chloride 101 mmol/L (98-107); Glomerular Filtration Rate 74.5 mL/min (90-130); Glucose 110 mg/dL (65-115); Osmolality Calculated 295 mOsm/kg (285-295); Potassium 4.2 mmol/L (3.5-5.1); Sodium 140 mmol/L (136-145)
[2020-11-09 05:29] VITALS: PULSE 90
--- NOTE | 2020-11-09 06:26 | PM.SDS ---
Short Stay Summary Providers Date of Admit/Discharge: 11/09/20 Attending Provider: Luis Jonas MD Primary Care Provider: Carla Santos MD Chief Complaint: peripheral diagnostic HPI History of Present Illness Jose Luis Kessler is a 65 year old male past medical history significant for severe peripheral arterial disease, critical limb ischemia with nonhealing left foot ulcers was brought in for second attempt to revascularize highly calcified long lesion of left SFA and proximal popliteal vessel. Few days ago we tried through contralateral approach using right common femoral vessel despite of applying different techniques we were not able to cross the calcified left SFA lesion. Patient was brought in yesterday as we used popliteal approach in retrograde fashion which also remain unfruitful. It is therefore recommended that patient will be referred to surgery for possible femoral-popliteal graft. Patient follows up with Dr. Parrihs in the wound care. We will request Dr. Parrish's expertise. Overnight patient was monitored post peripheral angiogram/PT attempt. Night remained uneventful. His leg foot appeared to be warm, he denies pain more than of his usual. His wound in the popliteal fossa looks good. Today we will discharge him. Review of Systems ENMT: Denies: enlarged tonsils Home Meds/Allergies Home Medications and Allergies Home Medications Medication Instructions Recorded Confirmed Type albuterol sulfate 90 mcg/actuation 2 puff INHALATION Q6H PRN 07/15/19 11/08/20 History aerosol inhaler celecoxib 200 mg capsule 200 mg PO DAILY cap 07/15/19 11/08/20 History trazodone 100 mg tablet 200 mg PO DAILY tab 07/15/19 11/08/20 History lisinopril 20 0.24 tab PO DAILY tab 05/10/20 11/08/20 History mg-hydrochlorothiazide 25 mg tablet prednisone 20 mg tablet 20 mg PO DAILY PRN 06/01/20 11/08/20 History Allergies Allergy/AdvReac Type Severity Reaction Status Date / Time atorvastatin [From Lipitor] Allergy Severe ALGY-Anaphy Verified 10/04/20 09:58 laxis colesevelam [From WelChol] Allergy Severe ALGY-Anaphy Verified 10/04/20 09:58 laxis nickel Allergy Severe ALGY-Rash Verified 10/04/20 09:58 varenicline [From Chantix] Allergy Severe ALGY-Anaphy Verified 10/04/20 09:58 laxis lisinopril Allergy w/HCTZ Verified 10/04/20 09:58 makes dizzy PFSH Acute PFSH: Medical History (Updated 10/22/20 @ 20:04 by Luis Jonas MD) Arthritis Chronic radicular low back pain COPD (chronic obstructive pulmonary disease) Emphysema lung HTN (hypertension) Hypercholesterolemia Hyperlipidemia Long-term current use of opiate analgesic Neuropathy Pain management contract signed PVD (peripheral vascular disease) Status post amputation of finger Tobacco use disorder Surgical History History of back surgery S/P arterial stent (~2018) S/P knee surgery S/P rotator cuff repair (~06/12/14) Right / DR KIM Family History Father Liver disease Mother Cancer Other CAD (coronary artery disease) Diabetes Stroke Social History Smoking and tobacco status: current every day smoker cigarettes Packs smoked per day: 1 [ Other cigarette details: 3-4 CIGS DAY ] and pipe Alcohol intake: current Alcohol intake frequency: holidays/special occasions only Lives independently: Yes History of recent travel: No Dietary Habits: Current diet type/program: regular Caffeine: Yes Caffeine intake frequency: coffee Exercise: What type of physical activity do you participate in?: none Home Safety: Firearms in home: Yes Firearms unloaded and locked?: Yes Vitals/I&O/Wt Last Vital Signs Temp 98.3 F 11/09/20 04:03 Pulse 90 11/09/20 05:29 Resp 20 H 11/09/20 04:03 BP 114/65 11/09/20 04:03 Pulse Ox 90 11/09/20 04:03 11/08/20 11/08/20 11/09/20 14:59 22:59 06:59 Intake Total 360 / 360 100 / 460 Balance 360 / 360 100 / 460 Weight last 48 hrs Weight 241 lb Physical Exam Narrative: EXAM NARRATIVE: GENERAL: Patient is alert, awake and oriented x3. NECK: No jugular vein distension. HEENT: No cyanosis. No icterus. No pallor. HEART: Regular S1 and S2. No murmur, rub or gallop. LUNGS: Clear to auscultate bilaterally. ABDOMEN: Soft, nontender and nondistended. Positive bowel sounds. No guarding, rebound or tenderness. CENTRAL NERVOUS SYSTEM: Grossly nonfocal. EXTREMITIES: Lower extremities with 1+ edema left foot. Pulses faintly dopplerable, left foot appear to be ruborous with nonhealing ulcer Hospital Course Hospital Course As above SSS Data Data Completed and Pending: Pending at discharge Category Date Time Status HEAD OF ETHICS AND COMPLIANCE request for service Routin e Exams 11/08/20 06:00 Taken Discharge Plan Discharge Patient Disposition: Home Condition: Stable Prescriptions: Continued albuterol sulfate 90 mcg/actuation HFA aerosol inhaler 2 puff INHALATION Q6H PRN (Reason: Shortness Of Breath) RF: 0 celecoxib [Celebrex] 200 mg capsule 200 mg PO DAILY RF: 0 trazodone 100 mg tablet 200 mg PO DAILY RF: 0 lisinopril-hydrochlorothiazide 20-25 mg tablet 0.24 tab PO DAILY RF: 0 ketoconazole 2 % cream 1 applic topical BID Qty: 60 RF: 1 prednisone 20 mg tablet 20 mg PO DAILY PRN (Reason: Allergic Symptoms) RF: 0 gabapentin 800 mg tablet 800 mg PO TID 30 Days Qty: 90 RF: 0 oxycodone 10 mg tablet 10 mg PO TID PRN (Reason: pain) 30 Days Qty: 90 RF: 0 Eliquis 5 mg tablet 2.5 mg PO BID Qty: 90 RF: 3 clopidogrel 75 mg tablet 75 mg PO DAILY Qty: 90 RF: 3 furosemide 40 mg tablet 40 mg PO DAILY Qty: 90 RF: 3 Repatha SureClick 140 mg/mL pen injector 140 mg SUBCUT Q14D Qty: 2 RF: 6 Discharge Orders: Discharge Order (Routine); Ordered 11/09/20 Ordered By: Luis Jonas Discharge Diet: Cardiac Discharge Activity: Increase activity as tolerated Activity Restrictions/Additional Instructions: Follow-up with Nasra Diaz in 7 days. Follow-up with Dr. Parrish in wound care as scheduled. You will be referred to surgery for possible bypass graft in the leg as we were not able to open up your blood vessel in the left leg. If any question please call Dr. jonas's office Attestations Medical Necessity Statement*: Patient can be discharged home today Time Spent in Patient Care*: less than 30 min Quality Metrics Clinical Quality Measures: During this hospital stay, did patient experience: None Coding Level of Care Code Established Pt Acute Payroll And Benefits Specialist for Chg Fwd Patient Type Established History Expanded Problem Focused Exam Expanded Problem Focused Medical Decision Making Moderate Complexity
--- NOTE | 2020-11-09 07:11 | PC.NURSE ---
Pt refused 0800 vitals as he is ready to be discharged. TMVIOLET cancino
[2020-11-09 07:18] VITALS: BP 130/79; PULSE 88; RESP 18
--- NOTE | 2020-11-09 07:31 | PC.NURSE ---
patient provided with discharge instructions and follow up care patient verbalized understanding of all instructions provided. patient assisted to wheel chair with all belongings in hand
== END 2020-11-09 07:45 | disposition home or self-care (01) ==
LOC: CCL 07:21 → CSU 08:35
PROVIDERS: PCP Family Medicine; Visit Provider Internal Medicine Cardiovascular Disease
DX: I73.9 Peripheral vascular disease, unspecified (principal); Z99.81 Dependence on supplemental oxygen; G47.30 Sleep apnea, unspecified; I11.0 Hypertensive heart disease with heart failure; E66.01 Morbid (severe) obesity due to excess calories; Z68.35 Body mass index [BMI] 35.0-35.9, adult; Z86.73 Personal history of transient ischemic attack (TIA), and cerebral infarction without residual deficits; M19.90 Unspecified osteoarthritis, unspecified site; J43.9 Emphysema, unspecified; E78.5 Hyperlipidemia, unspecified; F17.210 Nicotine dependence, cigarettes, uncomplicated
CPT/HCPCS: 36415; 80048; 85025; C1769; C1887; C1894; J1644; J2250; J2370; J2704; J3490; J7030; Q0163; Q9967

== ENCOUNTER 2020-11-10 13:10 | Outpatient (CLI) | payer MEDICARE, MEDICAID, SELFPAY | END 2020-11-10 13:11 | disposition home or self-care (01) | LOC: WOUND 13:12 | PROVIDERS: PCP Family Medicine; Visit Provider Thoracic Surgery (Cardiothoracic Vascular Surgery) | DX: L97.522 Non-pressure chronic ulcer of other part of left foot with fat layer exposed (principal) | CPT/HCPCS: 11042 ==

== ENCOUNTER → 2020-11-16 09:09 | Outpatient (BNVA) | payer MEDICARE, MEDICAID, SELFPAY | PROVIDERS: PCP Family Medicine; Visit Provider Nurse Practitioner | DX: G89.29 Other chronic pain (principal); M54.17 Radiculopathy, lumbosacral region; M54.16 Radiculopathy, lumbar region; M54.9 Dorsalgia, unspecified; M79.605 Pain in left leg; I70.229 Atherosclerosis of native arteries of extremities with rest pain, unspecified extremity; F17.200 Nicotine dependence, unspecified, uncomplicated; Z79.891 Long term (current) use of opiate analgesic | CPT/HCPCS: 99215 ==

== ENCOUNTER 2020-11-17 11:00 | Outpatient (CLI) | payer MEDICARE, MEDICAID, SELFPAY | END 2020-11-17 11:01 | disposition home or self-care (01) | LOC: WOUND 11:01 | PROVIDERS: PCP Family Medicine; Visit Provider Thoracic Surgery (Cardiothoracic Vascular Surgery) | DX: I96 Gangrene, not elsewhere classified (principal); L97.522 Non-pressure chronic ulcer of other part of left foot with fat layer exposed | CPT/HCPCS: 11042 ==

== ENCOUNTER 2020-11-19 14:49 | Inpatient (IN) | payer MEDICARE, MEDICAID, SELFPAY ==
[2020-11-19] VITALS (12 sets, daily range): BP systolic 111–144; BP diastolic 45–82; PULSE 87–108; RESP 16–20; TEMP 36.4–38.4; O2SAT 91–98; BMI 35.4
--- NOTE | 2020-11-19 15:02 | CTR_ITS ---
PROCEDURE INFORMATION: Exam: CTA Angiogram of the Abdominal Aorta and Bilateral Lower Extremities (Run-off) With IV Contrast Exam date and time: 11/19/2020 4:15 PM Age: 65 years old Clinical indication: Numbness; Lower extremity; Left; Prior surgery; Surgery type: L knee; Additional info: Critical limb ischemia left lower extremity. Pad- 3x unsucessful attempts to stent- unable to bear wt. L leg. Scheduled early chay for fempop TECHNIQUE: Imaging protocol: CT angiogram of the abdominal aorta, pelvis and bilateral lower extremities with IV iodinated contrast. 3D rendering (Not supervised by radiologist): MIP and/or 3D reconstructed images were created by the technologist. Radiation optimization: All CT scans at this facility use at least one of these dose optimization techniques: automated exposure control; mA and/or kV adjustment per patient size (includes targeted exams where dose is matched to clinical indication); or iterative reconstruction. Contrast material: OMNI 350; Contrast volume: 95 ml; Contrast route: INTRAVENOUS (IV); COMPARISON: No relevant prior studies available. RADIATION DOSE METRICS: Total DLP (mGy-cm): 2058.35 FINDINGS: Aorta: Abdominal aorta is diffusely atherosclerotic. Infrarenal abdominal aortic aneurysm measuring 3.0 cm AP x 2.9 cm transverse x 5.9 cm craniocaudal. Celiac trunk and mesenteric arteries: No occlusion or significant stenosis. Renal arteries: No occlusion or significant stenosis. Right iliac arteries: Right iliac arteries are atherosclerotic. No aneurysm or significant stenosis. Right femoral/popliteal arteries: Right femoral arteries demonstrate a focal moderate to severe stenosis just beyond the common femoral bifurcation. There is mild diffuse disease throughout the remainder of the superficial femoral artery. No significant high-grade stenosis in these areas. Right popliteal artery is patent. Right infrapopliteal arteries: Right infrapopliteal arteries demonstrate proximal occlusion of the peroneal artery. Anterior and posterior tibial arteries are patent. Left iliac arteries: Left iliac arteries are atherosclerotic. No aneurysm or significant stenosis. Left femoral/popliteal arteries: Left femoral arteries are remarkable for proximal occlusion of the superficial femoral artery at its origin. There is reconstitution at the popliteal level via collaterals. Left popliteal artery has an attenuated appearance without focal stenosis. Left infrapopliteal arteries: Left infrapopliteal arteries are patent. Lungs: Mild atelectasis versus fibrosis noted at the lung bases. Liver: Decreased hepatic density is noted, consistent with hepatic steatosis. Gallbladder and bile ducts: The gallbladder is contracted. No calcified gallstones demonstrated. Pancreas: The pancreas is normal in appearance. No pancreatic duct dilatation. Spleen: The spleen is normal in size and appearance. Adrenals: The adrenal glands appear within normal limits. Kidneys and ureters: 3 cm simple appearing left renal cyst. No solid renal masses. Stomach and bowel: No acute gastric abnormality demonstrated. The small bowel is unremarkable as demonstrated. No acute abnormality/inflammatory change of the colon. Appendix: No evidence of appendicitis. Normal appendix. Bladder: Unremarkable. No mass. Reproductive: Unremarkable as visualized. Intraperitoneal space: No pneumoperitoneum. No significant fluid collection. Lymph nodes: No lymphadenopathy. Bones/joints: No acute fracture. No dislocation. Soft tissues: Severe subcutaneous edema throughout the left lower extremity. Moderate subcutaneous edema in the distal right lower extremity. CT/CT angio abd aorta runof 15316 IMPRESSION: 1. Abdominal aorta is diffusely atherosclerotic. Infrarenal abdominal aortic aneurysm measuring 3.0 cm AP x 2.9 cm transverse x 5.9 cm craniocaudal. No leak or rupture. Follow-up imaging in 3 years is recommended. 2. Left femoral arteries are remarkable for proximal occlusion of the superficial femoral artery at its origin. There is reconstitution at the popliteal level via collaterals. Popliteal artery has an attenuated appearance. 3. Moderate proximal right SFA stenosis. 4. Decreased hepatic density is noted, consistent with hepatic steatosis. Radiation Dose CTDIVOL = (mGy): DLP = 2059.35 (mGy-cm)
--- NOTE | 2020-11-19 15:02 | XR_ITS ---
WS: [id number] Portable AP upright chest, 11/19/2020 Clinical Data: reduced breath sounds Comparison: Portable chest, 01/09/2019. Findings: No nodules, masses or effusions are seen. The heart is normal. The pulmonary vascularity is not increased. No pneumonia or pneumothorax is seen. There is minimal linear atelectasis in the midp ortion of the right lung. Monitor leads are on the chest wall. The aortic arch shows mild calcificati on. XR/XR chest 1V portable [id number] Impression: Atherosclerosis.
--- NOTE | 2020-11-19 15:04 | ECG_ITS ---
[facility] Test Date: 2020-11-19 Pat Name: Jose Luis Kessler Department: Room: Gender: Male [employer] Person: : 1955 Requested By: Viktor Dykes Order Number: [id number] Kyleigh MD: MIGUEL BROWN Measurements Intervals [place] Rate: 102 P: 59 MN: 135 QRS: 11 QRSD: 114 T: 39 QT: 328 QTc: 427 Interpretive Statements SINUS TACHYCARDIA MODERATE INTRAVENTRICULAR CONDUCTION DELAY [110+ ms QRS DURATION] ABNORMAL RHYTHM ECG Compared to ECG 01/09/2019 18:37:06 Intraventricular conduction delay now present Sinus rhythm no longer present Electronically Signed On 11-19-2020 21:19:14 CDT by MIGUEL BROWN [email or web address]
--- NOTE | 2020-11-19 15:18 | PC.NURSE ---
andrew 1st set blood cx prior to the antibiotics
[2020-11-19 15:31] LABS: Basophils # 0.1 10^3/uL (0.0-0.1); Basophils % 0.6 %; Eosinophils # 0.1 10^3/uL (0.0-0.8); Eosinophils % 0.7 %; Hematocrit 34.6 % (42.0-52.0); Hemoglobin 11.1 g/dL (11.7-16.6); Lymphocytes # 1.6 10^3/uL (0.8-4.8); Lymphocytes % 11.7 %; Mean Corpuscular HGB Conc 32.1 g/dL (30.0-36.0); Mean Corpuscular Hemoglobin 30.5 pg (28.0-34.0); Mean Corpuscular Volume 95.1 fL (80-94); Mean Platelet Volume 11.2 fL (7.4-10.4); Monocytes # 0.9 10^3/uL (0.2-0.9); Monocytes % 6.4 %; Neutrophils # 10.46 10^3/uL (1.8-7.7); Neutrophils % 78.9 %; Nucleated Red Blood Cells % 0 %; Platelet Count 305 10^3/cmm (130-400); Red Blood Count 3.64 10^6/uL (4.1-5.3); Red Cell Distribution Width 13.9 % (12.1-15.1); White Blood Count 13.3 10^3/uL (4.0-10.0)
[2020-11-19] MEDS: acetaminophen 500 mg Tablet 1000 MG PO (15:36)
[2020-11-19] MEDS: sodium chloride 0.9% 1,000 ML 999 ML IV (15:36)
[2020-11-19] MEDS: piperacillin-tazobactam 3.375 GM in sodium chloride 0.9% (plus) 50 ML IV (15:37)
[2020-11-19] MEDS: vancomycin 1,500 MG/300 ML PIGGYBACK 200 MG IV (15:38)
[2020-11-19 16:03] LABS: Troponin(5th) Baseline 15 ng/L (0-15)
[2020-11-19 16:07] LABS: Lactic Sepsis W/Reflex 1.3 mmol/L (0.5-2.2)
[2020-11-19 16:13] LABS: Alanine Aminotransferase 74 U/L (0-41); Albumin Level 2.9 g/dL (3.5-5.2); Alkaline Phosphatase 168 IU/L (40-130); Aspartate Amino Transferase 37 U/L (0-40); Blood Urea Nitrogen 24 mg/dL (8-23); Calcium 9.4 mg/dL (8.5-10.5); Carbon Dioxide 28 mmol/L (22-29); Chloride 95 mmol/L (98-107); Creatine Phosphokinase 47 U/L (39-308); Creatinine Clr Calc Pharmacy 79.2352; Globulin 4.1 g/dL (1.3-4.6); Glomerular Filtration Rate 66.8 mL/min (90-130); Glucose 93 mg/dL (65-115); NT Pro B Type Natriuretic Pept 88 pg/mL (0-125); Osmolality Calculated 292 mOsm/kg (285-295); Sodium 139 mmol/L (136-145); Total Bilirubin 1.2 mg/dL (0.15-1.2)
[2020-11-19 16:19] LABS: Anion Gap 19.7 (5-19)
[2020-11-19 16:20] LABS: Potassium 3.7 mmol/L (3.5-5.1)
[2020-11-19] MEDS: iohexol 350 mg/mL 100 mL Btl IV (16:34)
[2020-11-19 17:39] LABS: Troponin 5 2HR 15.39 ng/L (0-15); Troponin 5 2HR Delta 0.39 ABS# (0-10)
[2020-11-19 17:47] LABS: Add Urine Microscopic? NO; Charge for UA Resulting for Rev
[2020-11-19 17:56] LABS: Bilirubin Urine Neg (Negative); Blood Urine Neg (Negative); Glucose Urine UA Norm (Normal); Ketones Urine Negative (Negative); Leukocyte Esterase Urine Negative (Negative); Nitrate Urine Negative (Negative); Protein Urine Neg (Negative); Urine Appearance Clear (CLEAR); Urine Color Yellow (Yellow); Urobilinogen Urine 4 mg/dL (Negative); pH Urine 5 (5-7)
--- NOTE | 2020-11-19 18:07 | W.ED.EXTPRO ---
HPI - Extremity Problem General: Chief complaint: Extremity Problem,Nontraumatic Stated complaint: CANT WALK / LEG PAIN Time Seen by Provider: 11/19/20 14:55 History of Present Illness: HPI Narrative: The patient is a 65-year-old male with past medical history diabetes and leg wounds which she is receiving wound care. He comes complaining of pain to his left leg and inability to walk. He has critical limb ischemia of that leg as well and has had 3 unsuccessful stenting procedures and he is scheduled for a femoropopliteal bypass graft on December [address] Parrish. He has obvious cellulitis to his left lower extremity to above his knee streaking up almost to the thigh. Right foot has a mild cellulitis as well. MD Complaint: extremity pain and extremity swelling Onset (ago): day(s) (2) Pain Consistency: constant Location: left and lower extremity Quality: sharp Relieving factors: rest Exacerbating factors: weight bearing, walking and palpation Associated symptoms: Deny chest pain or rash Review of Systems General: Reports: 10 or more systems reviewed and unremarkable except in HPI and below Const: Denies: fatigue Eyes: Denies: change in vision, blurry vision or eye redness ENMT: Denies: throat pain, swelling of lips/tongue, ear or mastoid pain or nasal congestion Card: Denies: chest pain, palpitations, irregular heart rhythm, edema, dyspnea on exertion or orthopnea Resp: Denies: dyspnea, productive cough or non-productive cough GI: Denies: abdominal pain, diarrhea or GI cramping : Denies: flank pain, urinary frequency or urinary urgency Musc: Denies: neck pain, back pain, extremity pain, joint pain, joint redness, limited range of motion or muscle weakness Skin/Breast: Reports: erythema; Denies: rash, pruritus, skin pain or skin tenderness Neuro: Denies: headache(s), numbness in extremities, weakness in extremities, sensory changes, difficulty walking, dizziness, confusion or Slurred speech present Psych: Denies: anxiety or depression Endo: Denies: polyuria All/Imm: Denies: urticaria, throat swelling or tongue swelling PFS ED PFSH: Medical History (Updated 11/19/20 @ 18:21 by Viktor Dykes MD) Arthritis Chronic radicular low back pain COPD (chronic obstructive pulmonary disease) Emphysema lung HTN (hypertension) Hypercholesterolemia Hyperlipidemia Long-term current use of opiate analgesic Neuropathy Pain management contract signed PVD (peripheral vascular disease) Status post amputation of finger Tobacco use disorder Surgical History History of back surgery S/P arterial stent (~2018) S/P knee surgery S/P rotator cuff repair (~06/12/14) Right / DR KIM Family History Father Liver disease Mother Cancer Other CAD (coronary artery disease) Diabetes Stroke Social History (Updated 11/16/20 @ 09:32 by LARISSA Dillard) Smoking and tobacco status: former smoker Alcohol intake: current Alcohol intake frequency: holidays/special occasions only Lives independently: Yes History of recent travel: No Physical Exam Const: COMMON NORMALS: no acute distress, average body habitus, patient oriented x3, no limitations, alert and well nourished GENERAL APPEARANCE: cooperative, comfortable and well developed ORIENTATION/CONSCIOUSNESS: Yes awake, Yes oriented to person, Yes oriented to place and Yes oriented to time OTHER: slightly confused. HENMT: COMMON NORMALS: normocephalic, external ears normal and Normal external nose present HEAD & SCALP: normal to inspection and normocephalic NOSE: Normal external nose present EXTERNAL EAR: Yes external ears normal MOUTH: Normal oral and palatal mucosa present THROAT: posterior oropharynx normal Eye: COMMON NORMALS: Equal, round and reactive pupils present and EOMs intact bilaterally GENERAL EYE: appearance normal, both eyes and all related structures PUPIL: Yes Equal, round and reactive pupils present Neck/C-Spine: COMMON NORMALS: full ROM, no lymphadenopathy, no meningeal signs and no JVD GENERAL: Yes normal visual inspection Lymph: LYMPHATIC: no lymphadenopathy noted Chest: COMMONS NORMALS: normal inspection of the chest and normal palpation of entire chest wall Resp: COMMON NORMALS: normal respiratory effort, No retractions, No use of accessory muscles, clear to auscultation bilaterally and percussion normal EFFORT & INSPECTION: Yes able to speak in complete sentences AUSCULTATION: clear to auscultation bilaterally PERCUSSION: percussion normal Cardio: COMMON NORMALS: no JVD, regular rate, regular rhythm, S1 normal heart sound present, S2 normal heart sound present and Peripheral pulses 2+ throughout RATE: regular rate RHYTHM: regular rhythm HEART SOUNDS: S1 normal heart sound present and S2 normal heart sound present PERIPHERAL PULSES: Peripheral pulses 2+ throughout GI: COMMON NORMALS: Normal to inspection, nondistended, normoactive bowel sounds present, Soft to palpation, non-tender and no masses INSPECTION: Yes normal to inspection PALPATION: Yes Soft to palpation : COMMON NORMALS: Yes no CVA tenderness BLADDER/KIDNEY EXAM: Yes no CVA tenderness Back/Pelvis: COMMON NORMALS: no CVA tenderness, thoracic and lumbar spine normal to inspection, no thoracic nor lumbar tenderness and thoraco-lumbar ROM normal Extremity: COMMON NORMALS: normal to inspection, full ROM, capillary refill normal, no joint enlargement and no pedal edema GENERAL: Yes normal exam except as noted Neuro: COMMON NORMALS: patient oriented x3, CN's II-XII intact bilaterally, moves all extremities, no focal motor deficits, no sensory deficits noted and gait normal SENSORIUM/ORIENTATION: Yes alert, Yes oriented to person, Yes oriented to place and Yes oriented to time MENINGEAL SIGNS: Yes no meningeal signs Psych: COMMON NORMALS: mental status grossly normal, cooperative, normal affect and speech normal APPEARANCE: Yes unkempt ATTITUDE: Yes calm SPEECH: Yes normal speech THOUGHT PROCESS: confused Skin: COMMON NORMALS: no rashes or lesions noted NARRATIVE SKIN EXAM: The patient has a cellulitis from his left foot to his left knee with some streaks up his left thigh. Also milder cellulitis to right foot. He has wound on the left great toe which is possibly the source of the infection. No soft tissue emphysema felt anywhere. No abscess or fluctuance seen. GENERAL SKIN EXAM: no rashes or lesions noted Course Vital Signs: Vital signs: Vital Signs Temperature 99.4 F 11/19/20 17:07 Pulse Rate 87 11/19/20 18:19 Respiratory Rate 18 11/19/20 18:19 Blood Pressure 119/65 11/19/20 18:19 Pulse Oximetry 97 11/19/20 18:19 MDM - Extremity (Nontraumatic) MDM Narrative: Medical decision making narrative: The patient has an obvious left lower extremity cellulitis in the same to his right foot. He has a small wound on his left great toe which is possibly the source. He comes in febrile, tachycardic, white count 13.3. He is septic. He was started on Vanco, Zosyn, IV fluids. He also has critical limb ischemia on the left and has 3 field attempts at stenting. He has a femoropopliteal scheduled December [address] angiogram aorta with runoff does show multiple stenoses. It also shows significant soft tissue edema in the left lower extremity and right foot. This is likely the cellulitis I can see. Discussed with Dr. Perea who accepts for admission to the floor. Lab Data: Labs: Lab Results 11/19/20 11/19/20 11/19/20 Range/Units 15:13 15:13 15:13 WBC 13.3 H (4.0-10.0) 10^3/ uL RBC 3.64 L (4.1-5.3) 10^6/u L Hgb 11.1 L (11.7-16.6) g/dL Hct 34.6 L (42.0-52.0) % MCV 95.1 H (80-94) fL MCH 30.5 (28.0-34.0) pg MCHC 32.1 (30.0-36.0) g/dL RDW 13.9 (12.1-15.1) % Plt Count 305 (130-400) 10^3/c mm MPV 11.2 H (7.4-10.4) fL Neut % (Auto) 78.9 % Lymph % (Auto) 11.7 % [place] % (Auto) 6.4 % Eos % (Auto) 0.7 % Baso % (Auto) 0.6 % Neut # (Auto) 10.46 H (1.8-7.7) 10^3/u L Lymph # (Auto) 1.6 (0.8-4.8) 10^3/u L [place] # (Auto) 0.9 (0.2-0.9) 10^3/u L Eos # (Auto) 0.1 (0.0-0.8) 10^3/u L Baso # (Auto) 0.1 (0.0-0.1) 10^3/u L Nucleated RBC % (a uto) 0 % Nucleated RBCs # 0.0 /100WBC Sodium 139 (136-145) mmol/L Potassium 3.7 (3.5-5.1) mmol/L Chloride 95 L (98-107) mmol/L Carbon Dioxide 28 (22-29) mmol/L Anion Gap 19.7 H (5-19) BUN 24 H (8-23) mg/dL Creatinine 1.1 (0.7-1.2) mg/dL GFR Calculation 66.8 L (90-130) mL/min Glucose 93 (65-115) mg/dL Calculated Osmolal ity 292 (285-295) mOsm/k g Lactic Acid (0.5-2.2) mmol/L Calcium 9.4 (8.5-10.5) mg/dL Total Bilirubin 1.2 (0.15-1.2) mg/dL AST 37 (0-40) U/L ALT 74 H (0-41) U/L Alkaline Phosphata se 168 H (40-130) IU/L Creatine Kinase 47 (39-308) U/L Troponin T Baselin e 15 (0-15) ng/L Troponin T 120 Min table mountain (0-15) ng/L Delta Troponin T (0-10) ABS# NT-Pro-B Natriuret Pep 88 (0-125) pg/mL Total Protein 7.0 (6.6-8.7) g/dL Albumin 2.9 L (3.5-5.2) g/dL Globulin 4.1 (1.3-4.6) g/dL Urine Color (Yellow) Urine Appearance (CLEAR) Urine pH (5-7) Ur Specific Gravit y (1.005-1.030) Urine Protein (Negative) Urine Glucose (UA) (Normal) Urine Ketones (Negative) Urine Blood (Negative) Urine Nitrate (Negative) Urine Bilirubin (Negative) Urine Urobilinogen (Negative) mg/dL Ur Leukocyte Anay ase (Negative) 11/19/20 11/19/20 11/19/20 Range/Units 15:13 17:15 17:44 WBC (4.0-10.0) 10^3/ uL RBC (4.1-5.3) 10^6/u L Hgb (11.7-16.6) g/dL Hct (42.0-52.0) % MCV (80-94) fL MCH (28.0-34.0) pg MCHC (30.0-36.0) g/dL RDW (12.1-15.1) % Plt Count (130-400) 10^3/c mm MPV (7.4-10.4) fL Neut % (Auto) % Lymph % (Auto) % [place] % (Auto) % Eos % (Auto) % Baso % (Auto) % Neut # (Auto) (1.8-7.7) 10^3/u L Lymph # (Auto) (0.8-4.8) 10^3/u L [place] # (Auto) (0.2-0.9) 10^3/u L Eos # (Auto) (0.0-0.8) 10^3/u L Baso # (Auto) (0.0-0.1) 10^3/u L Nucleated RBC % (a uto) % Nucleated RBCs # /100WBC Sodium (136-145) mmol/L Potassium (3.5-5.1) mmol/L Chloride (98-107) mmol/L Carbon Dioxide (22-29) mmol/L Anion Gap (5-19) BUN (8-23) mg/dL Creatinine (0.7-1.2) mg/dL GFR Calculation (90-130) mL/min Glucose (65-115) mg/dL Calculated Osmolal ity (285-295) mOsm/k g Lactic Acid 1.3 (0.5-2.2) mmol/L Calcium (8.5-10.5) mg/dL Total Bilirubin (0.15-1.2) mg/dL AST (0-40) U/L ALT (0-41) U/L Alkaline Phosphata se (40-130) IU/L Creatine Kinase (39-308) U/L Troponin T Baselin e (0-15) ng/L Troponin T 120 Min table [place] 15.39 H (0-15) ng/L Delta Troponin T 0.39 (0-10) ABS# NT-Pro-B Natriuret Pep (0-125) pg/mL Total Protein (6.6-8.7) g/dL Albumin (3.5-5.2) g/dL Globulin (1.3-4.6) g/dL Urine Color Yellow (Yellow) Urine Appearance Clear (CLEAR) Urine pH 5 (5-7) Ur Specific Gravit y 1.010 (1.005-1.030) Urine Protein Neg (Negative) Urine Glucose (UA) Norm (Normal) Urine Ketones Negative (Negative) Urine Blood Neg (Negative) Urine Nitrate Negative (Negative) Urine Bilirubin Neg (Negative) Urine Urobilinogen 4 H (Negative) mg/dL Ur Leukocyte Anay ase Negative (Negative) Discharge Plan Discharge Patient Disposition: Admitted As Inpatient Clinical Impression: Sepsis, Critical ischemia of lower extremity, Cellulitis Condition: Stable Coding Level of Care Code ED Destination Imagination Coordinator for Imtiaz Fwd Exam Comprehensive
[2020-11-19] MEDS: morphine 4 mg/mL SDV 1 mL 2 MG IVP (18:14)
--- NOTE | 2020-11-19 20:08 | PM.HP ---
Providers/Chief Complaint Admitting Physician: Debora Perea MD Primary Care Provider: Carla Santos MD Chief Complaint: CANT WALK / LEG PAIN History of Present Illness Jose Luis Kessler is a 65 year old male with PMH as outlined below, chirfly severe peripheral arterial disease, critical limb ischemia with nonhealing left foot ulcers with multiple failed peripheral intervention, planned for fem-pop bypass as outpatient comes in today with pain to his left leg and inability to walk.He has cellulitis to his left lower extremity to above his knee streaking up almost to the thigh with signs of sepsis with fever, leukocytosis. Review of Systems General: Reports: 10 or more systems reviewed and unremarkable except in HPI and below Const: Denies: fever(s), chills or body aches Eyes: Denies: change in vision, blurry vision or photophobia ENMT: Reports: hoarseness; Denies: throat pain, enlarged tonsils, odynophagia or nasal congestion Card: Denies: chest pain, palpitations, irregular heart rhythm, edema, swelling of feet/ankles, lightheadedness, pre-syncope, dyspnea on exertion or orthopnea Resp: Denies: dyspnea, productive cough, non-productive cough, wheezing, stridor, pain on inspiration, change in phlegm color, hemoptysis or chest congestion GI: Denies: abdominal pain, nausea, vomiting, hematemesis, coffee ground emesis, dysphagia, heartburn, diarrhea, constipation, GI cramping, change in stool character, hematochezia or melena : Denies: flank pain, dysuria, urinary frequency, urinary urgency, urinary hesitancy or hematuria Musc: Denies: neck pain, back pain, extremity pain, joint swelling, joint warmth or deformity Neuro: Denies: headache(s), numbness in extremities, weakness in extremities, sensory changes, difficulty walking, frequent falls, dizziness, vertigo, behavioral changes, Slurred speech present or seizure-like activity Psych: Denies: anxiety, depression, suicidal ideation or homicidal ideation Endo: Denies: polyuria, polydipsia, tired all the time, cold intolerance or hot flashes Riley/Lymph: Denies: easy bruising or easy bleeding Medications/Allergies Home Medications Medication Instructions Recorded Confirmed Last Taken Type albuterol sulfate 90 mcg/actuation 2 puff INHALATION Q6H PRN 07/15/19 11/19/20 10/31/20 21:00 History aerosol inhaler celecoxib 200 mg capsule 200 mg PO BEDTIME cap 07/15/19 11/19/20 11/07/20 23:00 History trazodone 100 mg tablet 200 mg PO BEDTIME tab 07/15/19 11/19/20 11/18/20 History prednisone 20 mg tablet 40 mg PO DAILY PRN 06/01/20 11/19/20 10/31/20 21:00 History furosemide 40 mg tablet 40 mg PO DAILY #90 tab 06/04/20 11/19/20 11/19/20 Rx evolocumab 140 mg/mL subcutaneous 140 mg SUBCUT Q14D #2 ml 08/03/20 11/19/20 10/31/20 21:00 Rx pen injector oxycodone 10 mg tablet 10 mg PO QID PRN 30 Days #120 tab 11/16/20 11/19/20 11/19/20 08:00 Rx Eliquis 2.5 mg PO BID@11/19/20 11/19/20 11/19/20 08:00 History Vitamin B-12 1 tab PO DAILY 11/19/20 11/19/20 Unknown History Vitamin D3 1 cap PO DAILY 11/19/20 11/19/20 Unknown History clopidogrel 75 mg PO DAILY@11/19/20 11/19/20 11/18/20 History gabapentin 2,400 mg PO BEDTIME 11/19/20 11/19/20 11/18/20 History ipratropium-albuterol [Combivent 1 puff INHALATION BID 11/19/20 11/19/20 Unknown History Respimat] lisinopril-hydrochlorothiazide 0.5 tab PO DAILY 11/19/20 11/19/20 11/18/20 History multivitamin 1 tab PO DAILY 11/19/20 11/19/20 Unknown History pentoxifylline 400 mg PO TID@11/19/20 11/19/20 11/19/20 08:00 History Allergies Allergy/AdvReac Type Severity Reaction Status Date / Time atorvastatin [From Lipitor] Allergy Severe ALGY-Anaphy Verified 11/19/20 17:10 laxis colesevelam [From WelChol] Allergy Severe ALGY-Anaphy Verified 11/19/20 17:10 laxis nickel Allergy Severe ALGY-Rash Verified 11/19/20 17:10 varenicline [From Chantix] Allergy Severe ALGY-Anaphy Verified 11/19/20 17:10 laxis lisinopril Allergy w/HCTZ Verified 11/19/20 17:10 makes dizzy PFSH Acute PFSH: Medical History (Updated 11/19/20 @ 20:12 by Debora Perea MD) Arthritis Chronic radicular low back pain COPD (chronic obstructive pulmonary disease) Emphysema (subcutaneous) (surgical) resulting from a procedure *Erroneous Entry* Emphysema lung HTN (hypertension) Hypercholesterolemia Hyperlipidemia Long-term current use of opiate analgesic Neuropathy Pain management contract signed PVD (peripheral vascular disease) Status post amputation of finger Tobacco use disorder Surgical History History of back surgery S/P arterial stent (~2018) S/P knee surgery S/P rotator cuff repair (~06/12/14) Right / DR KIM Family History Father Liver disease Mother Cancer Other CAD (coronary artery disease) Diabetes Stroke Social History Smoking and tobacco status: former smoker Alcohol intake: current Alcohol intake frequency: holidays/special occasions only Lives independently: Yes History of recent travel: No Vitals/I&O/Wt Last Vital Signs Temp 99.4 F 11/19/20 17:07 Pulse 87 11/19/20 19:13 Resp 20 H 11/19/20 19:13 BP 112/65 11/19/20 19:13 Pulse Ox 98 11/19/20 19:13 11/19/20 11/19/20 11/19/20 06:59 14:59 22:59 Intake Total 50 / 50 Balance 50 / 50 Weight last 48 hrs Weight 108.862 kg Physical Exam Narrative: EXAM NARRATIVE: General: No acute distress, AO x3 HEENT: PERRLA, pupils bilaterally equal and reactive, pallors not present Chest: Normal vesicular breath sounds, no added sounds, equal good air entry bilaterally CVS: S1-S2 regular, no murmurs, no tachycardia, no gallops, no rubs Abdomen: Soft, nontender, no organomegaly, bowel sounds present Neuro: No focal deficits, no facial deformity, AO x3, power 5/5 in all limbs Extremities: LLE cellulitis Data : 11/19/20 15:13 11/19/20 15:13 Micro: Microbiology 11/19/20 15:40 Blood Culture - Preliminary Blood SPECIMEN COLLECTED 11/19/20 15:13 Blood Culture - Preliminary Blood SPECIMEN COLLECTED A&P Assessment and plan (1) Sepsis: meets criteria with fever, tachycardia, source of sepsis start empiric vanc and zosyn blood cx taken prior to abx careful fluid resuscitation given h/o diastolic CHF Status: Acute (2) COPD (chronic obstructive pulmonary disease): not currently exacerbated duonebs and budesonide no steroids for now Status: Acute Qualifiers: COPD type: unspecified COPD Qualified Code(s): J44.9 - Chronic obstructive pulmonary disease, unspecified (3) Cellulitis: plan as above Status: Acute (4) Critical ischemia of lower extremity: planned for fem pop bypass as outpatient Status: Acute Attestations Medical Necessity Statement*: >2 midnight anticipated as need for iv abx, sepsis management, high risk of treatment failure due to critical limb ischemia Coding Level of Care Code Acute Veterinarian Poultry for [facility] Diagnoses Sepsis A41.9 COPD (chronic obstructive pulmonary disease) J44.9 COPD type: unspecified COPD Cellulitis L03.90 Critical ischemia of lower extremity I70.229
[2020-11-19 21:49] LABS: Glucose Point of Care 138 mg/dL (70-110)
[2020-11-19] MEDS: oxyCODONE 5 mg IR Tab/Cap 10 MG PO (21:54)
[2020-11-19] MEDS: trazodone 100 mg Tablet 200 MG PO (21:55)
[2020-11-19] MEDS: sodium chloride 0.9% 1,000 ML 75 ML IV (22:00)
[2020-11-20] VITALS (23 sets, daily range): BP systolic 112–160; BP diastolic 64–111; PULSE 72–106; RESP 14–26; TEMP 37.2–39.2; O2SAT 91–99
[2020-11-20] MEDS: piperacillin-tazobactam 3.375 GM in sodium chloride 0.9% (plus) 50 ML IV ×4 (00:31→23:09)
--- NOTE | 2020-11-20 01:35 | PC.NURSE ---
PATIENTS HOME MEDS HAVE BEEN COUNTED BY MYSELF AND VERIFIED BY Krys VYAS LPN WELL PATIENT. THEY ARE IN A RED AND BLACK RECTANGULAR LUNCH BOX THAT HAS BEEN BAGGED AND PUT IN THE [facility].
[2020-11-20] MEDS: acetaminophen 325 mg Tablet 650 MG PO ×3 (04:30→20:37)
[2020-11-20] MEDS: vancomycin 1,500 MG/300 ML PIGGYBACK 200 MG IV ×2 (04:30→15:46)
[2020-11-20] MEDS: morphine 4 mg/mL SDV 1 mL 2 MG IVP ×5 (04:32→21:50)
[2020-11-20 06:24] LABS: Glucose Point of Care 140 mg/dL (70-110)
[2020-11-20 06:59] LABS: Basophils # 0.1 10^3/uL (0.0-0.1); Basophils % 0.8 %; Eosinophils # 0.1 10^3/uL (0.0-0.8); Eosinophils % 0.4 %; Hematocrit 31.1 % (42.0-52.0); Hemoglobin 10.2 g/dL (11.7-16.6); Lymphocytes # 1.2 10^3/uL (0.8-4.8); Lymphocytes % 8.9 %; Mean Corpuscular HGB Conc 32.8 g/dL (30.0-36.0); Mean Corpuscular Hemoglobin 31.1 pg (28.0-34.0); Mean Corpuscular Volume 94.8 fL (80-94); Mean Platelet Volume 10.2 fL (7.4-10.4); Monocytes # 0.8 10^3/uL (0.2-0.9); Monocytes % 5.9 %; Neutrophils # 10.92 10^3/uL (1.8-7.7); Neutrophils % 83.2 %; Nucleated Red Blood Cells % 0 %; Platelet Count 329 10^3/cmm (130-400); Red Blood Count 3.28 10^6/uL (4.1-5.3); Red Cell Distribution Width 14.1 % (12.1-15.1); White Blood Count 13.1 10^3/uL (4.0-10.0)
[2020-11-20 07:45] LABS: Alanine Aminotransferase 61 U/L (0-41); Albumin Level 2.8 g/dL (3.5-5.2); Alkaline Phosphatase 165 IU/L (40-130); Anion Gap 17.2 (5-19); Aspartate Amino Transferase 31 U/L (0-40); Blood Urea Nitrogen 19 mg/dL (8-23); Carbon Dioxide 27 mmol/L (22-29); Chloride 101 mmol/L (98-107); Globulin 3.4 g/dL (1.3-4.6); Glomerular Filtration Rate 84.2 mL/min (90-130); Glucose 105 mg/dL (65-115); Osmolality Calculated 297 mOsm/kg (285-295); Potassium 3.2 mmol/L (3.5-5.1); Sodium 142 mmol/L (136-145); Total Protein 6.2 g/dL (6.6-8.7)
[2020-11-20] MEDS: apixaban 5 mg Tablet 2.5 MG PO (09:06)
[2020-11-20] MEDS: pantoprazole DR 40 mg Tablet PO (09:06)
[2020-11-20] MEDS: oxyCODONE 5 mg IR Tab/Cap 10 MG PO ×2 (09:06→19:40)
--- NOTE | 2020-11-20 10:29 | PM.PN ---
Subjective Subjective: Interval history: T-max 1-2.5 overnight. No acute interim events. Lower extremity appearance appears unchanged. Leukocytosis stable at 13 Medications: Reviewed: Yes Vitals/I&O/Wt Last Vital Signs Temp 99.0 F 11/20/20 07:24 Pulse 87 11/20/20 07:24 Resp 14 11/20/20 09:06 BP 122/73 11/20/20 07:24 Pulse Ox 94 11/20/20 09:06 11/19/20 11/20/20 11/20/20 22:59 06:59 14:59 Intake Total 1350 / 1350 350 / 1700 Output Total 850 / 850 Balance 1350 / 1350 -500 / 850 Weight last 48 hrs Weight 108.862 kg Physical Exam Narrative: EXAM NARRATIVE: General: No acute distress, AO x3 HEENT: PERRLA, pupils bilaterally equal and reactive, pallors not present Chest: Normal vesicular breath sounds, no added sounds, equal good air entry bilaterally CVS: S1-S2 regular, no murmurs, no tachycardia, no gallops, no rubs Abdomen: Soft, nontender, no organomegaly, bowel sounds present Neuro: No focal deficits, no facial deformity, AO x3, power 5/5 in all limbs Extremities: LLE cellulitis Data : 11/20/20 05:50 11/20/20 05:50 Micro: Microbiology 11/19/20 15:40 Blood Culture - Preliminary Blood SPECIMEN COLLECTED 11/19/20 15:13 Blood Culture - Preliminary Blood SPECIMEN COLLECTED A&P Assessment and plan (1) Sepsis: meets criteria with fever, tachycardia, source of sepsis continue empiric vanc and zosyn blood cx taken prior to abx , pending at this time careful fluid resuscitation given h/o diastolic CHF diuretcos currently on hold Status: Acute (2) COPD (chronic obstructive pulmonary disease): not currently exacerbated duonebs and budesonide no steroids for now Status: Acute Qualifiers: COPD type: unspecified COPD Qualified Code(s): J44.9 - Chronic obstructive pulmonary disease, unspecified (3) Cellulitis: plan as above Status: Acute (4) Critical ischemia of lower extremity: planned for fem pop bypass as outpatient , if no significant improvement, may need to plan for intervnetion current admission Status: Acute Attestations Medical Necessity Statement*: celulitis, ongoing fever, needs iv abx Coding Level of Care Code Acute Software Test Technician for [facility] Diagnoses Sepsis A41.9 COPD (chronic obstructive pulmonary disease) J44.9 COPD type: unspecified COPD Cellulitis L03.90 Critical ischemia of lower extremity I70.229
[2020-11-20] MEDS: potassium chloride ER 20 mEq Tablet 40 MEQ PO (10:51)
[2020-11-20] MEDS: sodium chloride 0.9% 1,000 ML 75 ML IV (10:53)
[2020-11-20 11:13] LABS: Glucose Point of Care 150 mg/dL (70-110)
[2020-11-20] MEDS: heparin 5,000 unit/mL INJ 1 mL IV ×2 (14:36→23:09)
[2020-11-20] MEDS: heparin drip 25,000 UNIT/500 ML PREMIX 31 UNIT IV (14:38)
[2020-11-20 15:17] LABS: Vancomycin Trough 17.6 ug/mL (10-15)
[2020-11-20 16:52] LABS: Glucose Point of Care 189 mg/dL (70-110)
[2020-11-20] MEDS: clindamycin 900 MG/50 ML PREMIX 100 MG IV (17:09)
--- NOTE | 2020-11-20 18:48 | PC.NURSE ---
Transfer Taken over pt care at 1800.
[2020-11-20] MEDS: budesonide 0.5 mg/2 mL Neb INHALATION (19:54)
[2020-11-20] MEDS: ipratropium-albuterol 3 mL Neb INHALATION (19:54)
[2020-11-20] MEDS: trazodone 100 mg Tablet 200 MG PO (20:04)
[2020-11-20] MEDS: gabapentin 400 mg Capsule 2400 MG PO (20:04)
[2020-11-20] MEDS: clopidogrel 75 mg Tablet PO (20:04)
[2020-11-20 20:55] LABS: Glucose Point of Care 109 mg/dL (70-110)
[2020-11-20 22:34] LABS: INR 1.34 (0.8-1.2)
[2020-11-20 22:35] LABS: Partial Thromboplastin Time 41.4 SECONDS (23.9-36.7)
[2020-11-21] VITALS (39 sets, daily range): BP systolic 106–160; BP diastolic 55–138; PULSE 80–108; RESP 15–28; TEMP 37.2–39.2; O2SAT 91–98
[2020-11-21] MEDS: clindamycin 900 MG/50 ML PREMIX 100 MG IV ×3 (00:55→17:40)
[2020-11-21] MEDS: oxyCODONE 5 mg IR Tab/Cap 10 MG PO ×2 (02:31→10:38)
[2020-11-21] MEDS: morphine 4 mg/mL SDV 1 mL 2 MG IVP (02:31)
[2020-11-21] MEDS: ipratropium-albuterol 3 mL Neb INHALATION ×4 (02:37→20:24)
[2020-11-21] MEDS: ondansetron 2 mg/ML SDV 2 mL 4 MG IVP (03:27)
[2020-11-21] MEDS: morphine 4 mg/mL SDV 1 mL IVP ×5 (03:27→15:06)
[2020-11-21] MEDS: sodium chloride 0.9% 1,000 ML 75 ML IV (04:44)
[2020-11-21] MEDS: vancomycin 1,500 MG/300 ML PIGGYBACK 200 MG IV (04:45)
[2020-11-21 05:32] LABS: Basophils # 0.1 10^3/uL (0.0-0.1); Basophils % 0.7 %; Eosinophils # 0.1 10^3/uL (0.0-0.8); Eosinophils % 0.3 %; Hematocrit 30.2 % (42.0-52.0); Hemoglobin 9.5 g/dL (11.7-16.6); Lymphocytes # 1.5 10^3/uL (0.8-4.8); Lymphocytes % 9.3 %; Mean Corpuscular HGB Conc 31.5 g/dL (30.0-36.0); Mean Corpuscular Hemoglobin 30.9 pg (28.0-34.0); Mean Corpuscular Volume 98.4 fL (80-94); Monocytes # 0.8 10^3/uL (0.2-0.9); Monocytes % 5.2 %; Neutrophils # 13.56 10^3/uL (1.8-7.7); Neutrophils % 83.6 %; Nucleated Red Blood Cells % 0 %; Platelet Count 333 10^3/cmm (130-400); Red Blood Count 3.07 10^6/uL (4.1-5.3); Red Cell Distribution Width 14.5 % (12.1-15.1); White Blood Count 16.2 10^3/uL (4.0-10.0)
[2020-11-21 05:52] LABS: Alanine Aminotransferase 44 U/L (0-41); Albumin Level 2.3 g/dL (3.5-5.2); Alkaline Phosphatase 150 IU/L (40-130); Anion Gap 13.7 (5-19); Aspartate Amino Transferase 22 U/L (0-40); Blood Urea Nitrogen 13 mg/dL (8-23); Calcium 8.5 mg/dL (8.5-10.5); Carbon Dioxide 29 mmol/L (22-29); Chloride 103 mmol/L (98-107); Globulin 4.4 g/dL (1.3-4.6); Glomerular Filtration Rate 84.2 mL/min (90-130); Glucose 106 mg/dL (65-115); Osmolality Calculated 295 mOsm/kg (285-295); Potassium 3.7 mmol/L (3.5-5.1); Sodium 142 mmol/L (136-145); Total Bilirubin 0.9 mg/dL (0.15-1.2); Total Protein 6.7 g/dL (6.6-8.7)
[2020-11-21] MEDS: piperacillin-tazobactam 3.375 GM in sodium chloride 0.9% (plus) 50 ML IV (06:00)
[2020-11-21] MEDS: heparin drip 25,000 UNIT/500 ML PREMIX 35 UNIT IV ×2 (06:10→20:27)
[2020-11-21] MEDS: budesonide 0.5 mg/2 mL Neb INHALATION ×2 (07:43→20:24)
[2020-11-21 07:49] LABS: Glucose Point of Care 115 mg/dL (70-110)
[2020-11-21] MEDS: pantoprazole DR 40 mg Tablet PO (08:20)
[2020-11-21 11:02] LABS: Glucose Point of Care 173 mg/dL (70-110)
--- NOTE | 2020-11-21 12:12 | PM.PN ---
Subjective Subjective: Interval history: Patient had fever spike up to 103 Fahrenheit last evening, was transferred to ICU thereafter. Had ongoing changes with his left lower extremity. There are new blisters developing along his medial forefoot, extremity appeared to be more painful and erythematous. Due to concern for impending gangrene heparin drip was also initiated and patient transferred to ICU. Leukocytosis worsening at 16. Medications: Reviewed: Yes Vitals/I&O/Wt Last Vital Signs Temp 99 F 11/21/20 08:00 Pulse 96 11/21/20 10:00 Resp 20 H 11/21/20 10:49 BP 147/83 11/21/20 10:00 Pulse Ox 92 11/21/20 10:00 11/20/20 11/21/20 11/21/20 22:59 06:59 14:59 Intake Total 400 / 1896.25 2200.0 / 4096.25 424 / 424 Output Total 1000 / 1000 750 / 1750 Balance -600 / 896.25 1450.0 / 2346.25 424 / 424 Weight last 48 hrs Weight 108.862 kg Physical Exam Narrative: EXAM NARRATIVE: General: Alert awake and oriented x3 in moderate distress secondary to pain involving the left lower extremity HEENT: PERRLA, pupils bilaterally equal and reactive, pallors not present Chest: Normal vesicular breath sounds, no added sounds, equal good air entry bilaterally CVS: S1-S2 regular, no murmurs, no tachycardia, no gallops, no rubs Abdomen: Soft, nontender, no organomegaly, bowel sounds present Neuro: No focal deficits, no facial deformity, AO x3, power 5/5 in all limbs Extremities: LLE with interval development of blister over the left lateral calf and developing changes over the left medial forefoot. Extremely painful to touch. Urinary Catheter Management^: Gordon: Cath Placed During This Visit: yes Reason for Continuing Indwelling Catheter: Acute Urinary Retention or Obstruction Urinary Catheter Date of Insertion: 11/20/20 Urinary Catheter Time of Insertion: 13:35 Data : 11/21/20 05:20 11/21/20 05:20 Micro: Microbiology 11/21/20 05:20 Blood Culture - Preliminary Blood SPECIMEN COLLECTED 11/21/20 05:10 Blood Culture - Preliminary Blood SPECIMEN COLLECTED 11/19/20 15:40 Blood Culture - Preliminary Blood NEGATIVE TO DATE 11/19/20 15:13 Blood Culture - Preliminary Blood NEGATIVE TO DATE Attestation for Other Data: I personally reviewed and interpreted the following: Other data: Laboratory Results Impressions Aorta w/Runoff CTA 11/19/20 15:02 IMPRESSION: 1. Abdominal aorta is diffusely atherosclerotic. Infrarenal abdominal aortic aneurysm measuring 3.0 cm AP x 2.9 cm transverse x 5.9 cm craniocaudal. No leak or rupture. Follow-up imaging in 3 years is recommended. 2. Left femoral arteries are remarkable for proximal occlusion of the superficial femoral artery at its origin. There is reconstitution at the popliteal level via collaterals. Popliteal artery has an attenuated appearance. 3. Moderate proximal right SFA stenosis. 4. Decreased hepatic density is noted, consistent with hepatic steatosis. Radiation Dose CTDIVOL = (mGy): DLP = 2059.35 (mGy-cm) Chest X-Ray 11/19/20 15:02 Impression: Atherosclerosis. A&P Assessment and plan (1) Sepsis: Meets criteria with fever, tachycardia, source of sepsis. This is likely secondary to left lower extremity cellulitis, however worsening skin changes,persisting high grade fever, increasing pain in spite of being on appropriate antimicrobial coverage raises concern for rapidly developing infective process including necrotizing fasciitis versus impending gangrene. continued vanc and zosyn, added clindamycin 900 mg IV every 8 hourly due to concern for necrotizing fasciitis. MRI left leg now blood cx thus far with no growth to date. 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 Patient was due for a femoropopliteal bypass with Dr. Parrish on December 06 per history. Currently on the CTA there is noted reconstitution of popliteal level via collaterals, popliteal artery has an attenuated appearance, however left infrapopliteal vessels are patent. IV fluids discontinued today, blood pressure is well maintained, patient with interim development of bilateral rales on exam. Typically on Lasix at home. 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 He understands the associated risks of loss of limb and life which may be associated with delays. Status: Acute Qualifiers: Sepsis type: sepsis due to unspecified organism Sepsis acute organ dysfunction status: without acute organ dysfunction Qualified Code(s): A41.9 - Sepsis, unspecified organism (2) COPD (chronic obstructive pulmonary disease): not currently exacerbated duonebs and budesonide no steroids for now Status: Acute Qualifiers: COPD type: unspecified COPD Qualified Code(s): J44.9 - Chronic obstructive pulmonary disease, unspecified (3) Cellulitis: plan as above Status: Acute Qualifiers: Site of cellulitis: extremity Site of cellulitis of extremity: lower extremity Laterality: left Qualified Code(s): L03.116 - Cellulitis of left lower limb (4) Critical ischemia of lower extremity: planned for fem pop bypass as outpatient , if no significant improvement, may need to plan for intervnetion current admission, consult Dr. Parrish once available on Sunday. Plavix on hold today as anticipate patient needing surgical intervention Currently on heparin infusion due to concern for developing ischemia Status: Acute Additional A&P Information DVT ppx: on heparin infusion Full code Attestations Medical Necessity Statement*: ongoing need for iv abx, MRI today Coding Level of Care Code Acute Computer Support Analyst for [facility] Diagnoses Sepsis A41.9 Sepsis type: sepsis due to unspecified organism Sepsis acute organ dysfunction status: without acute organ dysfunction COPD (chronic obstructive pulmonary disease) J44.9 COPD type: unspecified COPD Cellulitis L03.116 Site of cellulitis: extremity Site of cellulitis of extremity: lower extremity Laterality: left Critical ischemia of lower extremity I70.229
--- NOTE | 2020-11-21 12:59 | MRR_ITS ---
PROCEDURE INFORMATION: Exam: MR Left Lower Extremity Without and With Contrast, Tibia Fibula Exam date and time: 11/21/2020 4:49 PM Age: 65 years old Clinical indication: Condition or disease; Other: Lle cellulitis/necrotizing fascitis TECHNIQUE: Imaging protocol: MR of the Left lower extremity without and with contrast. Exam focused on the tibia and fibula. Contrast material: MULTHANCE; Contrast volume: 17 ml; Contrast route: INTRAVENOUS (IV); COMPARISON: CT angio abd aorta runof [id number] 11/19/2020 4:27 PM FINDINGS: Bones/joints: Bone marrow signal of the included osseous structures is normal. No fractures. No suspicious pathologic osseous lesion. There is no abnormal bone marrow enhancement. Muscles: The intramuscular signal and the intramuscular soft tissue planes are unremarkable. No convincing MRI evidence of myositis. There is no abnormal intramuscular enhancement. Soft tissues: Diffuse subcutaneous soft tissue edema changes throughout the included extremity. There is no focal loculated drainable soft tissue fluid collection. There is mild diffuse enhancement throughout the areas of subcutaneous soft tissue edema. MR/MR lower leg LT wo/w con [id number] IMPRESSION: 1. Diffuse cellulitis of the left lower extremity. 2. No convincing MRI evidence of significant myositis. 3. Negative for osteomyelitis.
--- NOTE | 2020-11-21 13:48 | PC.NURSE ---
attempting to reach sister re: mri and screening.
[2020-11-21] MEDS: FUROsemide 10 mg/mL SDV 2mL 20 MG IVP (14:21)
[2020-11-21 16:17] LABS: NT Pro B Type Natriuretic Pept 477 pg/mL (0-125)
[2020-11-21 16:58] LABS: Glucose Point of Care 199 mg/dL (70-110)
[2020-11-21] MEDS: acetaminophen 325 mg Tablet 650 MG PO (17:19)
[2020-11-21] MEDS: vancomycin 1,500 MG/300 ML PIGGYBACK 166 MG IV (17:37)
[2020-11-21 18:22] LABS: Glucose Point of Care 152 mg/dL (70-110)
[2020-11-21] MEDS: clopidogrel 75 mg Tablet PO (19:53)
[2020-11-21] MEDS: gabapentin 400 mg Capsule 2400 MG PO (20:00)
[2020-11-21] MEDS: trazodone 100 mg Tablet 200 MG PO (20:00)
[2020-11-21 20:05] LABS: Glucose Point of Care 183 mg/dL (70-110)
[2020-11-21 20:33] LABS: Partial Thromboplastin Time 55.2 SECONDS (23.9-36.7)
[2020-11-22] VITALS (47 sets, daily range): BP systolic 110–144; BP diastolic 54–98; PULSE 80–102; RESP 5–41; TEMP 36.8–38.3; O2SAT 59–100
[2020-11-22] MEDS: clindamycin 900 MG/50 ML PREMIX 100 MG IV ×2 (00:30→07:37)
[2020-11-22] MEDS: vancomycin 1,500 MG/300 ML PIGGYBACK 200 MG IV ×2 (03:24→18:50)
[2020-11-22 04:03] LABS: Basophils # 0.1 10^3/uL (0.0-0.1); Basophils % 0.7 %; Eosinophils # 0.1 10^3/uL (0.0-0.8); Eosinophils % 0.4 %; Hemoglobin 9.1 g/dL (11.7-16.6); Lymphocytes # 1.6 10^3/uL (0.8-4.8); Lymphocytes % 11.5 %; Mean Corpuscular HGB Conc 31.4 g/dL (30.0-36.0); Mean Corpuscular Hemoglobin 30.4 pg (28.0-34.0); Mean Platelet Volume 10.3 fL (7.4-10.4); Monocytes # 0.8 10^3/uL (0.2-0.9); Monocytes % 5.7 %; Neutrophils # 11.26 10^3/uL (1.8-7.7); Neutrophils % 80.8 %; Nucleated Red Blood Cells % 0 %; Platelet Count 342 10^3/cmm (130-400); Red Blood Count 2.99 10^6/uL (4.1-5.3); Red Cell Distribution Width 14.5 % (12.1-15.1)
[2020-11-22 04:22] LABS: Partial Thromboplastin Time 61.1 SECONDS (23.9-36.7)
[2020-11-22 04:25] LABS: Alanine Aminotransferase 56 U/L (0-41); Albumin Level 2.6 g/dL (3.5-5.2); Alkaline Phosphatase 166 IU/L (40-130); Anion Gap 12.6 (5-19); Aspartate Amino Transferase 39 U/L (0-40); Blood Urea Nitrogen 12 mg/dL (8-23); Calcium 9.1 mg/dL (8.5-10.5); Carbon Dioxide 30 mmol/L (22-29); Chloride 102 mmol/L (98-107); Glomerular Filtration Rate 84.2 mL/min (90-130); Glucose 109 mg/dL (65-115); Osmolality Calculated 292 mOsm/kg (285-295); Potassium 3.6 mmol/L (3.5-5.1); Sodium 141 mmol/L (136-145); Total Bilirubin 0.9 mg/dL (0.15-1.2); Total Protein 6.6 g/dL (6.6-8.7)
--- NOTE | 2020-11-22 05:11 | PC.NURSE ---
No changes over night with patient. Continue care.
--- NOTE | 2020-11-22 05:48 | PC.NURSE ---
Dr. Parrish bedside discussing POC, received orders to start LR @ 100 mL/hr and to stop heparin gtt for possible surgery today. Continue care.
--- NOTE | 2020-11-22 05:50 | PC.NURSE ---
Dr. Parrish gave orders to cleanse groin area and left leg with chlohexidine wash as well a few times today. Continue care
[2020-11-22] MEDS: lactated ringers 1,000 ML 100 ML IV ×2 (06:11→17:03)
[2020-11-22] MEDS: morphine 4 mg/mL SDV 1 mL IVP ×3 (06:14→17:08)
--- NOTE | 2020-11-22 06:15 | PM.CONSULT ---
Providers/Reason For Consult Consulting Physican/Specialty*: Dr. Parrish/cardiothoracic surgery Reason for Consult*: Ischemia left lower extremity Attending Physician: Debora Perea MD Primary Care Provider: Carla Santos MD History of Present Illness History of Present Illness Jose Luis Kessler is a 65 year old male whom I have been seen in wound care services for a left foot diabetic ulcer. He has known substantial peripheral vascular disease is undergone intervention attempts x2 this month by Dr. Barbosa. The first attempt was I antegrade approach from the right side where left SFA occlusion was identified. There is reconstitution at the knee of a marginal popliteal artery which extends to the trifurcation. Dr. Barbosa most recently attempted retrograde approach through the popliteal artery posteriorly behind the knee, but unfortunately, was again unsuccessful. It was clear with the past couple of weeks that he has had ongoing changes to his left leg and we were attempting to expedite approval for an attempt at left femoropopliteal bypass. It is questionable as to whether this procedure, if successful, would provide adequate inflow to save his leg and have had this conversation with him on several recent clinic visits. He appears to be quite aware of the gravity of his severe disease and the potential for major amputation, most probably above the knee. He was admitted on November 19 upon presentation with ongoing left leg pain. He has been initiated on Cleocin and vancomycin and currently is on heparin drip this morning. He has clear bullous changes and progressive skin loss to the lateral aspect of his left lower extremity and early gangrenous changes to the base of the left great toe. He is currently being treated per sepsis protocol. His white blood cell count is 14,000 this morning. Hypokalemia of 3.6. BUN and creatinine are normal. Albumin is very low at 2.6. Left lower extremity MRI was obtained yesterday and reveals diffuse cellulitis but no convincing MRI evidence for myositis and was negative for osteomyelitis. Aortogram with runoff was performed on November 19. 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 As expected, there is proximal occlusion of the left SFA with reconstitution of the popliteal by collaterals and the popliteal artery has an attenuated appearance. He also has moderate right SFA stenosis. Currently on my exam this morning, Mr. Kessler appears to be resting reasonably comfortable though it is quite painful to examine his leg. He has some epidermal sloughing laterally. There is demarcated cellulitis to the proximal portion of the leg Review of Systems Card: Reports: leg pain with exertion and acrocyanosis; Denies: chest pain, palpitations, irregular heart rhythm or orthopnea Resp: Denies: dyspnea Neuro: Reports: numbness in extremities, sensory changes and difficulty walking Meds/Allergies Home Medications and Allergies Home Medications Medication Instructions Recorded Confirmed Last Taken Type albuterol sulfate 90 mcg/actuation 2 puff INHALATION Q6H PRN 07/15/19 11/19/20 10/31/20 21:00 History aerosol inhaler celecoxib 200 mg capsule 200 mg PO BEDTIME cap 07/15/19 11/19/20 11/07/20 23:00 History trazodone 100 mg tablet 200 mg PO BEDTIME tab 07/15/19 11/19/20 11/18/20 History prednisone 20 mg tablet 40 mg PO DAILY PRN 06/01/20 11/19/20 10/31/20 21:00 History furosemide 40 mg tablet 40 mg PO DAILY #90 tab 06/04/20 11/19/20 11/19/20 Rx evolocumab 140 mg/mL subcutaneous 140 mg SUBCUT Q14D #2 ml 08/03/20 11/19/20 10/31/20 21:00 Rx pen injector oxycodone 10 mg tablet 10 mg PO QID PRN 30 Days #120 tab 11/16/20 11/19/20 11/19/20 08:00 Rx Eliquis 2.5 mg PO BID@08,11/19/20 11/19/20 11/19/20 08:00 History Vitamin B-12 1 tab PO DAILY 11/19/20 11/19/20 Unknown History Vitamin D3 1 cap PO DAILY 11/19/20 11/19/20 Unknown History clopidogrel 75 mg PO DAILY@11/19/20 11/19/20 11/18/20 History gabapentin 2,400 mg PO BEDTIME 11/19/20 11/19/20 11/18/20 History ipratropium-albuterol [Combivent 1 puff INHALATION BID 11/19/20 11/19/20 Unknown History Respimat] lisinopril-hydrochlorothiazide 0.5 tab PO DAILY 11/19/20 11/19/20 11/18/20 History multivitamin 1 tab PO DAILY 11/19/20 11/19/20 Unknown History pentoxifylline 400 mg PO TID@08,12,20 11/19/20 11/19/20 11/19/20 08:00 History Allergies Allergy/AdvReac Type Severity Reaction Status Date / Time atorvastatin [From Lipitor] Allergy Severe ALGY-Anaphy Verified 11/19/20 17:10 laxis colesevelam [From WelChol] Allergy Severe ALGY-Anaphy Verified 11/19/20 17:10 laxis nickel Allergy Severe ALGY-Rash Verified 11/19/20 17:10 varenicline [From Chantix] Allergy Severe ALGY-Anaphy Verified 11/19/20 17:10 laxis lisinopril Allergy w/HCTZ Verified 11/19/20 17:10 makes dizzy Current Medications Current Medications Generic Name Dose Route Start Last Admin Trade Name Freq PRN Reason Stop Dose Admin Acetaminophen 650 mg 11/19/20 20:27 11/21/20 17:19 Acetaminophen 325 Mg Tablet PO 650 mg Q6H PRN Administration Mild/Mod Pain Or Temp >/= 101 Albuterol/Ipratropium 3 ml 11/19/20 20:27 11/21/20 20:24 Ipratropium-Albuterol 3 Ml Neb INHALATION 3 ml Q4H PRN Administration SHORTNESS OF BREATH Budesonide 0.5 mg 11/20/20 08:00 11/21/20 20:24 Budesonide 0.5 Mg/2 Ml Neb INHALATION 0.5 mg BID.RESPIRATORY DANIEL Administration Gabapentin 2,400 mg 11/20/20 21:00 11/21/20 20:00 Gabapentin 400 Mg Capsule PO 2,400 mg BEDTIME DANIEL Administration Vancomycin/PEG/NADA/Lysine/Water 1,500 mg in 300 mls @ 200 mls/hr 11/20/20 04:00 11/22/20 04:59 Vancocin IV Infused Q12H DANIEL Infusion Clindamycin HCl/Dextrose 900 mg in 50 mls @ 100 mls/hr 11/20/20 16:30 11/22/20 01:09 Cleocin IV Infused Q8H DANIEL Infusion Protocol Imipenem/Cilastatin Sodium 500 100 mls @ 200 mls/hr 11/21/20 14:30 11/22/20 03:27 mg/ Sodium Chloride IV Infused Q6H DANIEL Infusion Protocol Lactated Ringer's 1,000 mls @ 100 mls/hr 11/22/20 06:00 11/22/20 06:11 Lactated Ringers IV 100 mls/hr .Q10H DANIEL Administration Insulin Aspart 0 unit 11/19/20 21:00 11/21/20 20:10 Insulin Aspart 100 Unit/1 Ml SUBCUT 4 unit WM&BEDTIME DANIEL Administration Protocol Morphine Sulfate 4 mg 11/21/20 03:20 11/22/20 06:14 Morphine 4 Mg/Ml Sdv 1 Ml IVP 4 mg Q2H PRN Administration SEVERE PAIN Ondansetron HCl 4 mg 11/19/20 20:27 11/21/20 03:27 Ondansetron 2 Mg/Ml Sdv 2 Ml IVP 4 mg Q8H PRN Administration vomiting, or N/V if npo Oxycodone HCl 10 mg 11/19/20 21:31 11/21/20 10:38 Oxycodone 5 Mg Ir Tab/Cap PO 10 mg QID PRN Administration PAIN Pantoprazole Sodium 40 mg 11/20/20 09:00 11/21/20 08:[address] 40 Mg Tablet PO 40 mg DAILY DANIEL Administration Trazodone HCl 200 mg 11/19/20 21:00 11/21/20 20:00 Trazodone 100 Mg Tablet PO 200 mg BEDTIME DANIEL Administration PFSH Acute PFSH: Medical History (Updated 11/22/20 @ 00:01 by ) Arthritis Chronic radicular low back pain COPD (chronic obstructive pulmonary disease) Emphysema (subcutaneous) (surgical) resulting from a procedure *Erroneous Entry* Emphysema lung HTN (hypertension) Hypercholesterolemia Hyperlipidemia Long-term current use of opiate analgesic Neuropathy Pain management contract signed PVD (peripheral vascular disease) Status post amputation of finger Tobacco use disorder Surgical History History of back surgery S/P arterial stent (~2018) S/P knee surgery S/P rotator cuff repair (~06/12/14) Right / DR KIM Family History Father Liver disease Mother Cancer Other CAD (coronary artery disease) Diabetes Stroke Social History Smoking and tobacco status: former smoker Alcohol intake: current Alcohol intake frequency: holidays/special occasions only Lives independently: Yes History of recent travel: No Vitals/I&O/Wt Last Vital Signs Temp 100.9 F H 11/22/20 02:15 Pulse 90 11/22/20 05:26 Resp 26 H 11/22/20 06:14 BP 144/73 11/22/20 04:00 Pulse Ox 96 11/22/20 04:00 11/21/20 11/21/20 11/22/20 14:59 22:59 06:59 Intake Total 664 / 664 2185.917 / 2849.917 450 / 3299.917 Output Total 1600 / 1600 850 / 2450 Balance 664 / 664 585.917 / 1249.917 -400 / 849.917 Physical Exam HENMT: COMMON NORMALS: normocephalic and atraumatic HEAD & SCALP: normocephalic and atraumatic Neck/C-Spine: COMMON NORMALS: no lymphadenopathy and No carotid bruits GENERAL: Yes trachea midline Resp: COMMON NORMALS: normal respiratory effort, No retractions, No use of accessory muscles and clear to auscultation bilaterally EFFORT & INSPECTION: Yes able to speak in complete sentences and Yes symmetric chest movement AUSCULTATION: clear to auscultation bilaterally Cardio: COMMON NORMALS: regular rate, regular rhythm, S1 normal heart sound present and No murmurs present (Cardio) RATE: regular rate RHYTHM: regular rhythm HEART SOUNDS: S1 normal heart sound present PERIPHERAL PULSES: radial pulses present, femoral pulses present, popliteal pulses not present, posterior tibial pulses not present and dorsalis pedis pulses not present Extremity: OTHER: Clear cellulitis up to the proximal portion of the left leg which has been demarcated with ink. Epidermal lysis and bullous formation anteriorly and lateral aspect of the left lower extremity. Gangrenous changes to the base of the left toe. There is early gangrenous changes to a lesser degree to the right great toe. Urinary Catheter Management^: Gordon: Cath Placed During This Visit: yes Reason for Continuing Indwelling Catheter: Accurate Measurement of Urinary Output in Critically Ill Patients Urinary Catheter Date of Insertion: 11/20/20 Urinary Catheter Time of Insertion: 13:35 Data Micro: Micro: Microbiology 11/21/20 05:20 Blood Culture - Pr eliminary Blood NEGATIVE TO JEWELS E 11/21/20 05:10 Blood Culture - Pr eliminary Blood NEGATIVE TO JEWELS E A&P Assessment and plan (1) Critical ischemia of lower extremity: Very difficult situation as Mr. Kessler has severe peripheral vascular disease and has failed prior valiant attempts at intervention by Dr. Barbosa. The left popliteal artery appears to be a marginal vessel as a target for revascularization, and given the ongoing ischemia and elevated white count, it is certainly concerning as to whether placement of a graft would create further problems. We will plan for attempt revascularization early afternoon in the operating room theater with either a femoropopliteal bypass attempt or left above-knee amputation given his ongoing ischemia, ascending cellulitis, and continued elevated white count. I discussed the high probability of possible left above-knee amputation with Mr. Kessler. He states understanding. We have had several conversations about this previously and during wound care visits prior to this hospitalization. 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
[2020-11-22 07:01] LABS: Glucose Point of Care 116 mg/dL (70-110)
[2020-11-22] MEDS: oxyCODONE 5 mg IR Tab/Cap 10 MG PO (07:35)
[2020-11-22] MEDS: pantoprazole DR 40 mg Tablet PO (07:43)
[2020-11-22] MEDS: budesonide 0.5 mg/2 mL Neb INHALATION ×2 (07:46→19:42)
[2020-11-22] MEDS: ipratropium-albuterol 3 mL Neb INHALATION ×2 (07:46→19:42)
--- NOTE | 2020-11-22 08:00 | PM.CONSULT ---
Providers/Reason For Consult Consulting Physican/Specialty*: Zev Reed MD; orthopedic surgery Reason for Consult*: Cellulitis left lower extremity Attending Physician: Albert Mckay MD Primary Care Provider: Carla Santos MD History of Present Illness History of Present Illness Jose Luis Kessler is a 65 year old male admitted to the hospital on 11/19/2020 with increasing left lower extremity pain and inability to walk. He has a history of multiple nonhealing left lower extremity ulcers. He is actually scheduled for a left fempop bypass tomorrow. I was contacted yesterday for the patient having increased temperatures with the fever spike to 103, increasing leukocytosis, and increasing foot and calf pain. Dr. Perea has reported that despite antibiotics erythema in the left lower extremity is not improving. is poorly unavailable until Sunday and I am asked to see the patient in his absence. Meds/Allergies Home Medications and Allergies Home Medications Medication Instructions Recorded Confirmed Last Taken Type albuterol sulfate 90 mcg/actuation 2 puff INHALATION Q6H PRN 07/15/19 11/19/20 10/31/20 21:00 History aerosol inhaler celecoxib 200 mg capsule 200 mg PO BEDTIME cap 07/15/19 11/19/20 11/07/20 23:00 History trazodone 100 mg tablet 200 mg PO BEDTIME tab 07/15/19 11/19/20 11/18/20 History prednisone 20 mg tablet 40 mg PO DAILY PRN 06/01/20 11/19/20 10/31/20 21:00 History furosemide 40 mg tablet 40 mg PO DAILY #90 tab 06/04/20 11/19/20 11/19/20 Rx evolocumab 140 mg/mL subcutaneous 140 mg SUBCUT Q14D #2 ml 08/03/20 11/19/20 10/31/20 21:00 Rx pen injector oxycodone 10 mg tablet 10 mg PO QID PRN 30 Days #120 tab 11/16/20 11/19/20 11/19/20 08:00 Rx Eliquis 2.5 mg PO BID@08,11/19/20 11/19/20 11/19/20 08:00 History Vitamin B-12 1 tab PO DAILY 11/19/20 11/19/20 Unknown History Vitamin D3 1 cap PO DAILY 11/19/20 11/19/20 Unknown History clopidogrel 75 mg PO DAILY@20 11/19/20 11/19/20 11/18/20 History gabapentin 2,400 mg PO BEDTIME 11/19/20 11/19/20 11/18/20 History ipratropium-albuterol [Combivent 1 puff INHALATION BID 11/19/20 11/19/20 Unknown History Respimat] lisinopril-hydrochlorothiazide 0.5 tab PO DAILY 11/19/20 11/19/20 11/18/20 History multivitamin 1 tab PO DAILY 11/19/20 11/19/20 Unknown History pentoxifylline 400 mg PO TID@,,11/19/20 11/19/20 11/19/20 08:00 History Allergies Allergy/AdvReac Type Severity Reaction Status Date / Time atorvastatin [From Lipitor] Allergy Severe ALGY-Anaphy Verified 11/19/20 17:10 laxis colesevelam [From WelChol] Allergy Severe ALGY-Anaphy Verified 11/19/20 17:10 laxis nickel Allergy Severe ALGY-Rash Verified 11/19/20 17:10 varenicline [From Chantix] Allergy Severe ALGY-Anaphy Verified 11/19/20 17:10 laxis lisinopril Allergy w/HCTZ Verified 11/19/20 17:10 makes dizzy Current Medications Current Medications Generic Name Dose Route Start Last Admin Trade Name Freq PRN Reason Stop Dose Admin Acetaminophen 650 mg 11/19/20 20:27 11/21/20 17:19 Acetaminophen 325 Mg Tablet PO 650 mg Q6H PRN Administration Mild/Mod Pain Or Temp >/= 101 Albuterol/Ipratropium 3 ml 11/19/20 20:27 11/22/20 07:46 Ipratropium-Albuterol 3 Ml Neb INHALATION 3 ml Q4H PRN Administration SHORTNESS OF BREATH Budesonide 0.5 mg 11/20/20 08:00 11/22/20 07:46 Budesonide 0.5 Mg/2 Ml Neb INHALATION 0.5 mg BID.RESPIRATORY DANIEL Administration Gabapentin 2,400 mg 11/20/20 21:00 11/21/20 20:00 Gabapentin 400 Mg Capsule PO 2,400 mg BEDTIME DANIEL Administration Vancomycin/PEG/NADA/Lysine/Water 1,500 mg in 300 mls @ 200 mls/hr 11/20/20 04:00 11/22/20 04:59 Vancocin IV Infused Q12H DANIEL Infusion Clindamycin HCl/Dextrose 900 mg in 50 mls @ 100 mls/hr 11/20/20 16:30 11/22/20 07:37 Cleocin IV 100 mls/hr Q8H DANIEL Administration Protocol Imipenem/Cilastatin Sodium 500 100 mls @ 200 mls/hr 11/21/20 14:30 11/22/20 07:37 mg/ Sodium Chloride IV 200 mls/hr Q6H DANIEL Administration Protocol Lactated Ringer's 1,000 mls @ 100 mls/hr 11/22/20 06:00 11/22/20 06:11 Lactated Ringers IV 100 mls/hr .Q10H DANIEL Administration Insulin Aspart 0 unit 11/19/20 21:00 11/22/20 07:32 Insulin Aspart 100 Unit/1 Ml SUBCUT Not Given WM&BEDTIME DANIEL Protocol Morphine Sulfate 4 mg 11/21/20 03:20 11/22/20 06:14 Morphine 4 Mg/Ml Sdv 1 Ml IVP 4 mg Q2H PRN Administration SEVERE PAIN Ondansetron HCl 4 mg 11/19/20 20:27 11/21/20 03:27 Ondansetron 2 Mg/Ml Sdv 2 Ml IVP 4 mg Q8H PRN Administration vomiting, or N/V if npo Oxycodone HCl 10 mg 11/19/20 21:31 11/22/20 07:35 Oxycodone 5 Mg Ir Tab/Cap PO 10 mg QID PRN Administration PAIN Pantoprazole Sodium 40 mg 11/20/20 09:00 11/22/20 07:[address] 40 Mg Tablet PO 40 mg DAILY DANIEL Administration Trazodone HCl 200 mg 11/19/20 21:00 11/21/20 20:00 Trazodone 100 Mg Tablet PO 200 mg BEDTIME DANIEL Administration PFSH Acute PFSH: Medical History (Updated 11/22/20 @ 00:01 by ) Arthritis Chronic radicular low back pain COPD (chronic obstructive pulmonary disease) Emphysema (subcutaneous) (surgical) resulting from a procedure *Erroneous Entry* Emphysema lung HTN (hypertension) Hypercholesterolemia Hyperlipidemia Long-term current use of opiate analgesic Neuropathy Pain management contract signed PVD (peripheral vascular disease) Status post amputation of finger Tobacco use disorder Surgical History History of back surgery S/P arterial stent (~2018) S/P knee surgery S/P rotator cuff repair (~06/12/14) Right / DR KIM Family History Father Liver disease Mother Cancer Other CAD (coronary artery disease) Diabetes Stroke Social History Smoking and tobacco status: former smoker Alcohol intake: current Alcohol intake frequency: holidays/special occasions only Lives independently: Yes History of recent travel: No Vitals/I&O/Wt Last Vital Signs Temp 100.9 F H 11/22/20 02:15 Pulse 96 11/22/20 08:00 Resp 24 H 11/22/20 08:00 BP 144/81 11/22/20 08:00 Pulse Ox 90 11/22/20 08:00 11/21/20 11/22/20 11/22/20 22:59 06:59 14:59 Intake Total 2185.917 / 2849.917 450 / 3299.917 Output Total 1600 / 1600 850 / 2450 Balance 585.917 / 1249.917 -400 / 849.917 Physical Exam Narrative: EXAM NARRATIVE: Patient has erythema in his left leg and foot beginning at the proximal third of the leg extending distal. There is some generalized swelling but certainly no tight compartments. There is no subcutaneous crepitations. There is no proximal spreading erythema that I can appreciate. He will minimally move his toes and his ankle although is limited somewhat by pain. He has an absent left dorsalis pedis and tibialis posterior pulse. Urinary Catheter Management^: Gordon: Cath Placed During This Visit: yes Reason for Continuing Indwelling Catheter: Accurate Measurement of Urinary Output in Critically Ill Patients Urinary Catheter Date of Insertion: 11/20/20 Urinary Catheter Time of Insertion: 13:35 Data Micro: Micro: Microbiology 11/21/20 05:20 Blood Culture - Pr eliminary Blood NEGATIVE TO JEWELS E 11/21/20 05:10 Blood Culture - Pr eliminary Blood NEGATIVE TO JEWELS E Imaging^: MRI: Radiologist's impression: I reviewed an MRI report of the left leg obtained yesterday 11/21/2020. The patient has cellulitis but no myositis and no osteomyelitis. A&P Assessment and plan (1) Critical ischemia of lower extremity: Status: Acute (2) Cellulitis: I see no evidence of significant abscesses or burden of necrotic tissue on MRI. I think most of his pain is likely ischemic in nature. There certainly is some cellulitis and the underlying ischemia is impairing his ability to combat this cellulitis. I do not see surgical debridement is all offering any advantage. I think our goals at this point need to be to regain vascularity if Dr. Parrish thinks that can be done. If he is unable to significantly improve the vascularity and the patient is unable to combat lower extremity infection amputation would be in order. Status: Acute Qualifiers: Laterality: left Site of cellulitis: extremity Site of cellulitis of extremity: lower extremity Qualified Code(s): L03.116 - Cellulitis of left lower limb Coding Level of Care Code Acute Warehouse Freight Handler for [facility] Diagnoses Critical ischemia of lower extremity I70.229 Cellulitis L03.116 Laterality: left Site of cellulitis: extremity Site of cellulitis of extremity: lower extremity
--- NOTE | 2020-11-22 09:14 | PC.SOCIAL ---
IMM Update Pg. 2 of IMM updated and reviewed with patient, who verbalized understanding. Copy provided.
--- NOTE | 2020-11-22 10:46 | ANES.PREANE2 ---
Pre-Anesthetic Assessment Pre-Anesthetic Assessment: Height/Weight: Height 1.75 m Weight 108.862 kg Temp Pulse Resp BP Pulse Ox 100.9 F H 96 18 144/81 91 11/22/20 02:15 11/22/20 08:00 11/22/20 10:44 11/22/20 08:00 11/22/20 10:44 Preop Diagnosis: Critical limb ischemia of left foot Proposed Procedure: Operation Date: 11/22/20 13:30 Proposed Procedures p Femoral-Popliteal Artery Bypass(Left) - Gelacio Parrish MD Familial anesthetic complications: none Last intake: > 8 hrs Social: Social History: No alcohol and No tobacco Comment: former smoker Exam: Pre-Anes Outpt Exam: alert, oriented x 3, clear to auscultation bilaterally and regular rate & rhythm Airway: Cervical ROM: WNL MP: 3 Dentition: Other (no teeth) Pulmonary: Pulmonary: COPD (2 l nc prn at night) and Sleep apnea CV/HEM: CV/HEM: HTN and PVD Comments: CONCLUSIONS 1-Normal left ventricular cavity size. Normal left ventricular systolic function. No regional wall motion abnormalities. Left ventricular ejection fraction is estimated at 61 %. Grade I/IV diastolic dysfunction (abnormal relaxation filling pattern), normal to mildly elevated filling pressures. 2-Structurally normal aortic valve without significant sclerosis or stenosis. There is no aortic regurgitation. 3-Moderately thickened mitral valve. Severe mitral annular calcification. No mitral valve stenosis. Mild to moderatre mitral valve regurgitation. 4-Mild tricuspid valve regurgitation. 5-There is no pericardial effusion. 6-Pulmonary artery systolic pressure is within normal limits. 7-When compared to the prior echocardiogram dated August 17, 2015 there is mild to moderate mitral valve regurgitation and severe mitral annulus calcification now Metabolic: Metabolic: DM and Hyperlipidemia Musc/skel: Musc/skel: Lower Back Pain Anesthetic Plan: ASA status: 4 Anesthesia: General Other: A-line Risk of > 500 ml blood loss (7ml/kg in children): Yes, adequate IV access and fluids planned Meds/Allergies Current Medications: Current Medications Generic Name Dose Route Start Last Admin Trade Name Freq PRN Reason Stop Dose Admin Acetaminophen 650 mg 11/19/20 20:27 11/21/20 17:19 Acetaminophen 32 5 Mg Tablet PO 650 mg Q6H PRN Administration Mild/Mod Pain Or Temp >/= 101 Albuterol/Ipratrop ium 3 ml 11/19/20 20:27 11/22/20 07:46 Ipratropium-Albu terol 3 Ml Neb INHALATION 3 ml Q4H PRN Administration SHORTNESS OF ELIAS TH Budesonide 0.5 mg 11/20/20 08:00 11/22/20 07:46 Budesonide 0.5 M g/2 Ml Neb INHALATION 0.5 mg BID.RESPIRATORY S CH Administration Gabapentin 2,400 mg 11/20/20 21:00 11/21/20 20:00 Gabapentin 400 M g Capsule PO 2,400 mg BEDTIME DANIEL Administration Vancomycin/PEG/NAD A/Lysine/Water 1,500 mg in 300 m ls @ 200 mls/hr 11/20/20 04:00 11/22/20 04:59 Vancocin IV Infused Q12H DANIEL Infusion Clindamycin HCl/De xtrose 900 mg in 50 mls @ 100 mls/hr 11/20/20 16:30 11/22/20 07:37 Cleocin IV 100 mls/hr Q8H DANIEL Administration Protocol Imipenem/Cilastati n Sodium 500 100 mls @ 200 mls /hr 11/21/20 14:30 11/22/20 07:37 mg/ Sodium Chlor yanet IV 200 mls/hr Q6H DANIEL Administration Protocol Lactated Ringer's 1,000 mls @ 100 m ls/hr 11/22/20 06:00 11/22/20 06:11 Lactated Ringers IV 100 mls/hr .Q10H DANIEL Administration Insulin Aspart 0 unit 11/19/20 21:00 11/22/20 07:32 Insulin Aspart 1 00 Unit/1 Ml SUBCUT Not Given WM&BEDTIME DANIEL Protocol Morphine Sulfate 4 mg 11/21/20 03:20 11/22/20 10:44 Morphine 4 Mg/Ml Sdv 1 Ml IVP 4 mg Q2H PRN Administration SEVERE PAIN Ondansetron HCl 4 mg 11/19/20 20:27 11/21/20 03:27 Ondansetron 2 Mg /Ml Sdv 2 Ml IVP 4 mg Q8H PRN Administration vomiting, or N/V if npo Oxycodone HCl 10 mg 11/19/20 21:31 11/22/20 07:35 Oxycodone 5 Mg I r Tab/Cap PO 10 mg QID PRN Administration PAIN Pantoprazole Sodiu m 40 mg 11/20/20 09:00 11/22/20 07:[address] 40 Mg Tablet PO 40 mg DAILY DANIEL Administration Trazodone HCl 200 mg 11/19/20 21:00 11/21/20 20:00 Trazodone 100 Mg Tablet PO 200 mg BEDTIME DANIEL Administration PFSH Anesthesia PFSH: Medical History (Updated 11/22/20 @ 00:01 by ) Arthritis Chronic radicular low back pain COPD (chronic obstructive pulmonary disease) Emphysema (subcutaneous) (surgical) resulting from a procedure *Erroneous Entry* Emphysema lung HTN (hypertension) Hypercholesterolemia Hyperlipidemia Long-term current use of opiate analgesic Neuropathy Pain management contract signed PVD (peripheral vascular disease) Status post amputation of finger Tobacco use disorder Surgical History History of back surgery S/P arterial stent (~2018) S/P knee surgery S/P rotator cuff repair (~06/12/14) Right / DR KIM Family History Father Liver disease Mother Cancer Other CAD (coronary artery disease) Diabetes Stroke Social History Smoking and tobacco status: former smoker Alcohol intake: current Alcohol intake frequency: holidays/special occasions only Lives independently: Yes History of recent travel: No Data Anesthesia CBC & Chem 7: 11/22/20 03:03 11/22/20 03:03 Other Labs: Laboratory Results - last 48 hr 11/20/20 11/20/20 11/20/20 11:08 14:40 16:40 WBC RBC Hgb Hct MCV MCH MCHC RDW Plt Count MPV Neut % (Auto) Lymph % (Auto) Tompkins % (Auto) Eos % (Auto) Baso % (Auto) Neut # (Auto) Lymph # (Auto) Tompkins # (Auto) Eos # (Auto) Baso # (Auto) Nucleated RBC % (auto) Nucleated RBCs # PT INR APTT Sodium Potassium Chloride Carbon Dioxide Anion Gap BUN Creatinine GFR Calculation Glucose POC Glucose 150 H 189 H Calculated Osmolality Calcium Total Bilirubin AST ALT Alkaline Phosphatase NT-Pro-B Natriuret Pep Total Protein Albumin Globulin Vancomycin Trough 17.6 H Blood Type Rho(D) Type Antibody Screen Crossmatch 11/20/20 11/20/20 11/21/20 20:27 21:36 05:20 WBC 16.2 H RBC 3.07 L Hgb 9.5 L Hct 30.2 L MCV 98.4 H MCH 30.9 MCHC 31.5 RDW 14.5 Plt Count 333 MPV 10.0 Neut % (Auto) 83.6 Lymph % (Auto) 9.3 Tompkins % (Auto) 5.2 Eos % (Auto) 0.3 Baso % (Auto) 0.7 Neut # (Auto) 13.56 H Lymph # (Auto) 1.5 Tompkins # (Auto) 0.8 Eos # (Auto) 0.1 Baso # (Auto) 0.1 Nucleated RBC % (auto) 0 Nucleated RBCs # 0.0 PT 16.90 H INR 1.34 H APTT 41.4 H Sodium Potassium Chloride Carbon Dioxide Anion Gap BUN Creatinine GFR Calculation Glucose POC Glucose 109 Calculated Osmolality Calcium Total Bilirubin AST ALT Alkaline Phosphatase NT-Pro-B Natriuret Pep Total Protein Albumin Globulin Vancomycin Trough Blood Type Rho(D) Type Antibody Screen Crossmatch 11/21/20 11/21/20 11/21/20 05:20 05:20 05:20 WBC RBC Hgb Hct MCV MCH MCHC RDW Plt Count MPV Neut % (Auto) Lymph % (Auto) Tompkins % (Auto) Eos % (Auto) Baso % (Auto) Neut # (Auto) Lymph # (Auto) Tompkins # (Auto) Eos # (Auto) Baso # (Auto) Nucleated RBC % (auto) Nucleated RBCs # PT INR APTT Cancelled Sodium 142 Potassium 3.7 Chloride 103 Carbon Dioxide 29 Anion Gap 13.7 BUN 13 Creatinine 0.9 GFR Calculation 84.2 L Glucose 106 POC Glucose Calculated Osmolality 295 Calcium 8.5 Total Bilirubin 0.9 AST 22 ALT 44 H Alkaline Phosphatase 150 H NT-Pro-B Natriuret Pep 477 H Total Protein 6.7 Albumin 2.3 L Globulin 4.4 Vancomycin Trough Blood Type Rho(D) Type Antibody Screen Crossmatch 11/21/20 11/21/20 11/21/20 07:30 07:44 10:57 WBC RBC Hgb Hct MCV MCH MCHC RDW Plt Count MPV Neut % (Auto) Lymph % (Auto) Tompkins % (Auto) Eos % (Auto) Baso % (Auto) Neut # (Auto) Lymph # (Auto) Tompkins # (Auto) Eos # (Auto) Baso # (Auto) Nucleated RBC % (auto) Nucleated RBCs # PT INR APTT 70.0 H D Sodium Potassium Chloride Carbon Dioxide Anion Gap BUN Creatinine GFR Calculation Glucose POC Glucose 115 H 173 H Calculated Osmolality Calcium Total Bilirubin AST ALT Alkaline Phosphatase NT-Pro-B Natriuret Pep Total Protein Albumin Globulin Vancomycin Trough Blood Type Rho(D) Type Antibody Screen Crossmatch 11/21/20 11/21/20 11/21/20 16:54 18:18 19:59 WBC RBC Hgb Hct MCV MCH MCHC RDW Plt Count MPV Neut % (Auto) Lymph % (Auto) Tompkins % (Auto) Eos % (Auto) Baso % (Auto) Neut # (Auto) Lymph # (Auto) Tompkins # (Auto) Eos # (Auto) Baso # (Auto) Nucleated RBC % (auto) Nucleated RBCs # PT INR APTT Sodium Potassium Chloride Carbon Dioxide Anion Gap BUN Creatinine GFR Calculation Glucose POC Glucose 199 H 152 H 183 H Calculated Osmolality Calcium Total Bilirubin AST ALT Alkaline Phosphatase NT-Pro-B Natriuret Pep Total Protein Albumin Globulin Vancomycin Trough Blood Type Rho(D) Type Antibody Screen Crossmatch 11/21/20 11/22/20 11/22/20 20:06 03:03 03:03 WBC 14.0 H RBC 2.99 L Hgb 9.1 L Hct 29.0 L MCV 97.0 H MCH 30.4 MCHC 31.4 RDW 14.5 Plt Count 342 MPV 10.3 Neut % (Auto) 80.8 Lymph % (Auto) 11.5 Tompkins % (Auto) 5.7 Eos % (Auto) 0.4 Baso % (Auto) 0.7 Neut # (Auto) 11.26 H Lymph # (Auto) 1.6 Tompkins # (Auto) 0.8 Eos # (Auto) 0.1 Baso # (Auto) 0.1 Nucleated RBC % (auto) 0 Nucleated RBCs # 0.0 PT INR APTT 55.2 H 61.1 H Sodium Potassium Chloride Carbon Dioxide Anion Gap BUN Creatinine GFR Calculation Glucose POC Glucose Calculated Osmolality Calcium Total Bilirubin AST ALT Alkaline Phosphatase NT-Pro-B Natriuret Pep Total Protein Albumin Globulin Vancomycin Trough Blood Type Rho(D) Type Antibody Screen Crossmatch 05/11/22/20 11/22/20 03:03 06:51 06:56 WBC RBC Hgb Hct MCV MCH MCHC RDW Plt Count MPV Neut % (Auto) Lymph % (Auto) Tompkins % (Auto) Eos % (Auto) Baso % (Auto) Neut # (Auto) Lymph # (Auto) Tompkins # (Auto) Eos # (Auto) Baso # (Auto) Nucleated RBC % (auto) Nucleated RBCs # PT INR APTT Sodium 141 Potassium 3.6 Chloride 102 Carbon Dioxide 30 H Anion Gap 12.6 BUN 12 Creatinine 0.9 GFR Calculation 84.2 L Glucose 109 POC Glucose 116 H Calculated Osmolality 292 Calcium 9.1 Total Bilirubin 0.9 AST 39 ALT 56 H Alkaline Phosphatase 166 H NT-Pro-B Natriuret Pep Total Protein 6.6 Albumin 2.6 L Globulin 4.0 Vancomycin Trough Blood Type O Negative Rho(D) Type Negative / 0 Antibody Screen Negative Crossmatch See Detail Micro: Microbiology 11/21/20 05:20 Blood Culture - Preliminary Blood NEGATIVE TO DATE 11/21/20 05:10 Blood Culture - Preliminary Blood NEGATIVE TO DATE Cardiac Studies: No Data to Display
[2020-11-22 10:59] LABS: Partial Thromboplastin Time 38.8 SECONDS (23.9-36.7)
[2020-11-22 11:21] LABS: Glucose Point of Care 113 mg/dL (70-110)
--- NOTE | 2020-11-22 12:50 | PM.MISC ---
Miscellaneous Note Purpose of Documentation: Documentation of further advancing cellulitis Note: Since my exam of Mr. Kessler this month is now further advanced cellulitic changes to his left leg at least 2 cm above the prior inked border noted on morning exam. It is now at the level of the patella. Given this continued advancement, I think it would be hazardous to attempt prosthetic graft placement a revascularization. He has maintained elevated temperature since admission with his most recent recording being 100.9F. I have recommended proceeding with a formal above-knee amputation as a potentially life-saving maneuver. Mr. Kessler and I have had several conversations about this over the past 2 weeks. He appears to appropriately appreciate the gravity of the situation and comfortable with the consideration to proceed with major amputation.
--- NOTE | 2020-11-22 13:03 | PM.PN ---
Subjective Subjective: Interval history: Patient was seen and examined this morning, continues to complain of left lower extremity pain, continues to spike temperature, white blood cell count is slightly improved. Medications: Reviewed: Yes Vitals/I&O/Wt Last Vital Signs Temp 100.9 F H 11/22/20 02:15 Pulse 96 11/22/20 08:00 Resp 18 11/22/20 10:44 BP 144/81 11/22/20 08:00 Pulse Ox 91 11/22/20 10:44 11/21/20 11/22/20 11/22/20 22:59 06:59 14:59 Intake Total 2185.917 / 2849.917 450 / 3299.917 Output Total 1600 / 1600 850 / 2450 Balance 585.917 / 1249.917 -400 / 849.917 Physical Exam Const: COMMON NORMALS: patient oriented x3 HENMT: COMMON NORMALS: normocephalic and atraumatic HEAD & SCALP: normocephalic and atraumatic Chest: CHEST: Yes Symmetrical chest wall rise Resp: COMMON NORMALS: clear to auscultation bilaterally EFFORT & INSPECTION: Yes symmetric chest movement AUSCULTATION: clear to auscultation bilaterally Cardio: COMMON NORMALS: regular rate, regular rhythm, S1 normal heart sound present, S2 normal heart sound present, No gallops present (Cardio), No murmurs present (Cardio), No rub (Cardio) and Peripheral pulses 2+ throughout RATE: regular rate RHYTHM: regular rhythm HEART SOUNDS: S1 normal heart sound present and S2 normal heart sound present PERIPHERAL PULSES: Peripheral pulses 2+ throughout GI: COMMON NORMALS: Normal to inspection, nondistended, normoactive bowel sounds present, Soft to palpation, non-tender, No hepatosplenomegaly present and no masses AUSCULTATION: Yes normoactive bowel sounds PALPATION: Yes Soft to palpation and Yes No hepatosplenomegaly present RECTAL EXAM: Yes deferred Extremity: COMMON NORMALS: no clubbing, cyanosis or edema and no pedal edema OTHER: Clear cellulitis up to the proximal portion of the left leg which has been demarcated with ink. Epidermal lysis and bullous formation anteriorly and lateral aspect of the left lower extremity. Gangrenous changes to the base of the left toe. There is early gangrenous changes to a lesser degree to the right great toe. Neuro: COMMON NORMALS: patient oriented x3 Urinary Catheter Management^: Gordon: Cath Placed During This Visit: yes Reason for Continuing Indwelling Catheter: Accurate Measurement of Urinary Output in Critically Ill Patients Urinary Catheter Date of Insertion: 11/20/20 Urinary Catheter Time of Insertion: 13:35 Data : 11/22/20 03:03 11/22/20 03:03 Micro: Microbiology 11/21/20 05:20 Blood Culture - Preliminary Blood NEGATIVE TO DATE 11/21/20 05:10 Blood Culture - Preliminary Blood NEGATIVE TO DATE A&P Assessment and plan (1) Sepsis: Sepsis secondary to left lower extremity cellulitiis: fever, tachycardia, leukocytosis , extensive left lower extremity cellulitis, impending gangrene. ( N/F, gas gangrene ruled out based on MRI of the left lower extremity ) Lactic acid: Procalcitonin: Blood cx thus far with no growth to date. MR lower leg LT wo/w con: Diffuse cellulitis of the left lower extremity.No convincing MRI evidence of significant myositis.Negative for osteomyelitis. 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 Patient was due for a femoropopliteal bypass with Dr. Parrish on December 06 per history. Currently on the CTA there is noted reconstitution of popliteal level via collaterals, popliteal artery has an attenuated appearance, however left infrapopliteal vessels are patent. continued vanc and zosyn, clindamycin 900 mg IV every 8 hourly added on 11/21 due to concern for narcotizing fasciitis. Has been discontinued. Appreciate cardiothoracic surgery recommendations : above-knee amputation. ( advanced cellulitic changes to his left leg at least 2 cm above the prior inked border noted on morning exam. It is now at the level of the patella. Given this continued advancement, I think it would be hazardous to attempt prosthetic graft placement a revascularization. Also given the fact that he is septic now, with persistent leukocytosis and fever) Appreciate orthopedic recommendations Status: Acute Qualifiers: Sepsis acute organ dysfunction status: without acute organ dysfunction Sepsis type: sepsis due to unspecified organism Qualified Code(s): A41.9 - Sepsis, unspecified organism (2) COPD (chronic obstructive pulmonary disease): not currently exacerbated duonebs and budesonide no steroids for now Status: Inactive Qualifiers: COPD type: unspecified COPD Qualified Code(s): J44.9 - Chronic obstructive pulmonary disease, unspecified (3) Cellulitis: plan as above Status: Acute Qualifiers: Laterality: left Site of cellulitis: extremity Site of cellulitis of extremity: lower extremity Qualified Code(s): L03.116 - Cellulitis of left lower limb (4) Critical ischemia of lower extremity: planned for fem pop bypass as outpatient , if no significant improvement, may need to plan for intervnetion current admission, consult Dr. Parrish once available on Sunday. Plavix on hold today as anticipate patient needing surgical intervention Currently on heparin infusion due to concern for developing ischemia Status: Acute Additional A&P Information DVT ppx: on heparin infusion Full code Attestations Medical Necessity Statement*: Patient needs to be in the hospital for management of sepsis Coding Level of Care Code Acute Research Agricultural Engineer for [facility] Fwd Exam Detailed Diagnoses Sepsis A41.9 Sepsis acute organ dysfunction status: without acute organ dysfunction Sepsis type: sepsis due to unspecified organism COPD (chronic obstructive pulmonary disease) J44.9 COPD type: unspecified COPD Cellulitis L03.116 Laterality: left Site of cellulitis: extremity Site of cellulitis of extremity: lower extremity Critical ischemia of lower extremity I70.229
--- NOTE | 2020-11-22 13:49 | ANES.PROC ---
Anesthesia Procedures Procedure/Date: 11/22/20 Nerve Block ^: Nerve Block 1: Main Anesthesia: general anesthesia Time Out Performed: Yes Consent: from patient, risks and benefits reviewed and patient agrees to proceed Nerve block location: femoral (L) Anesthesia monitors applied: pulse oximetry, EKG, BP cuff and oxygen Nerve block position: supine Anesthetic Used: ropivicaine 0.5% and with decadron (4 mg) Amount of anesthesia used (mL): 30 Ultrasound used to: recognize landmarks and visualize and ID femerol nerve Nerve Stimulator Used?: No Interscalene/Femoral BLK: other needle (4 pajunk), visualize local anesthetic spread and no vascular puncture identified Injection: neg aspiration of heme and paresthesia +/- Patient Tolerated Procedure: well and no complications Complications: none
[2020-11-22] MEDS: vancomycin 1,000 MG SDV 1000 MG IRRIGATION (14:08)
[2020-11-22 16:35] LABS: Glucose Point of Care 142 mg/dL (70-110)
--- NOTE | 2020-11-22 16:37 | P.OP_ITS ---
Operative Report Date of procedure: November 22, 2020 Pre-op Diagnosis: Critical limb ischemia of left foot Post-op diagnosis: same Procedure Done: Left above-knee amputation Specimens removed/disposition: Left leg mid thigh/pathology Surgeon: Gelacio Parrish Anesthesia: General Complications: None Findings: Moderate edema in the soft tissues of the mid distal thigh. Mt cellulitis with epidermal lysis of the left leg from the knee distally. Gang renous changes left foot Condition: stable Disposition: ICU Brief History: Mr. 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 He is undergone 2 prior attempted percutaneous interventions, 1 antegrade, and one retrograde, to this occluded left SFA, unfortunately without success. He is followed in wound care clinic for diabetic foot ulcer. He was being prepared for planned attempt at left femoropopliteal bypass to a marginal popliteal artery for tomorrow. He represented to the emergency department and was admitted over the weekend with ongoing discomfort to the left leg and clearly has epidermal lysis, a sending cellulitis, leukocytosis, and fever. I saw him during this admission this morning and it is noted over a 4-hour period that is left lower extremity cellulitis has extended proximally another 2 cm or greater. It is now at the level of the knee. Given his continued systemic symptoms from the severely ischemic leg, I feel that amputation is the only remaining viable course. Rationale for this was carefully discussed Mr. Kessler stated understanding. Appropriate consents have been reviewed and signed. Procedure: Mr. Kessler was taken to the operating room and placed on the OR table in the supine position after receiving a femoral block by Dr. Lew from anesthesia.. He underwent general endotracheal anesthesia. The entire left lower extremity was sterilely prepped and draped. Left thigh was marked for incision line. #10 scalpel blade was utilized to circumferentially incise the skin in a fish[place] pattern. Anterior musculature was sharply divided utilizing scalpel and minimal use of cautery. Periosteal elevator was used for dissecting the periosteum off of the femur. Oscillating saw was utilized to divide the femur. Amputation knife was then used posteriorly to complete amputation of the left lower extremity. Meticulous inspection was carried out and hemostasis was controlled with minimal use of cautery, surgical clips, and suture ligature as required. The superficial femoral artery was controlled, retracted proximally, ligated and divided. The sciatic nerve was dissected proximally, ligated, and divided. The wound was irrigated with large amounts of antibiotic solution. Hemostasis was confirmed. A large Hemovac drain was placed beneath the fascia. The fascia was reapproximated with interrupted 0 and 2-0 Vicryl suture. Skin was reapproximated with skin riley. Sterile dressings were applied followed by a bulky dressing. The patient tolerated the procedure well and was turned to the ICU. There are no immediate family members available for which Mr. Kessler was is to reach out to.
[2020-11-22 17:15] LABS: Vancomycin Trough 16.5 ug/mL (10-15)
--- NOTE | 2020-11-22 17:47 | ANE.PACU2 ---
Inpatient post-anesthesia follow up: Airway intact: Yes Vital signs: Temperature 98.2 F Pulse Rate [Monito r] 108 Pulse Rate 102 Respiratory Rate 13 Blood Pressure [Ri ght Arm] 116/45 Blood Pressure 135/71 Pulse Oximetry 92 Oxygen Delivery Me thod [ Nasal Cannula Current Rate & Del mara] Oxygen Delivery Me thod Nasal Cannula Oxygen Flow Rate [ Current Rate 2 & Delivery] Oxygen Flow Rate 5 Fraction of Inspir ed Oxygen Hydration adequate: Yes Nausea and vomiting: No Pain level: 3 Mental status: Baseline Additional Comments: Upon emergence in OR went into brief a fib w/ RVR, converted to sinus upon adminstration of esmolol
[2020-11-22] MEDS: gabapentin 400 mg Capsule 2400 MG PO (20:25)
[2020-11-22] MEDS: trazodone 100 mg Tablet 200 MG PO (20:25)
[2020-11-22 21:23] LABS: Glucose Point of Care 153 mg/dL (70-110)
[2020-11-23] VITALS (76 sets, daily range): BP systolic 93–145; BP diastolic 47–126; PULSE 78–102; RESP 12–35; TEMP 36.4–37.7; O2SAT 91–100
[2020-11-23] MEDS: lactated ringers 1,000 ML 100 ML IV (02:26)
[2020-11-23] MEDS: morphine 4 mg/mL SDV 1 mL IVP ×6 (03:02→23:14)
[2020-11-23] MEDS: vancomycin 1,500 MG/300 ML PIGGYBACK 200 MG IV (03:02)
[2020-11-23 03:58] LABS: Basophils # 0.1 10^3/uL (0.0-0.1); Basophils % 0.5 %; Eosinophils % 0.1 %; Hematocrit 28.9 % (42.0-52.0); Hemoglobin 9.1 g/dL (11.7-16.6); Lymphocytes # 1.2 10^3/uL (0.8-4.8); Lymphocytes % 9.1 %; Mean Corpuscular HGB Conc 31.5 g/dL (30.0-36.0); Mean Corpuscular Hemoglobin 29.6 pg (28.0-34.0); Mean Corpuscular Volume 94.1 fL (80-94); Mean Platelet Volume 10.2 fL (7.4-10.4); Monocytes # 0.7 10^3/uL (0.2-0.9); Monocytes % 4.9 %; Neutrophils # 11.38 10^3/uL (1.8-7.7); Neutrophils % 84.5 %; Nucleated Red Blood Cells % 0 %; Platelet Count 330 10^3/cmm (130-400); Red Blood Count 3.07 10^6/uL (4.1-5.3); Red Cell Distribution Width 14.5 % (12.1-15.1); White Blood Count 13.5 10^3/uL (4.0-10.0)
[2020-11-23 05:17] LABS: Alanine Aminotransferase 42 U/L (0-41); Albumin Level 2.3 g/dL (3.5-5.2); Alkaline Phosphatase 135 IU/L (40-130); Anion Gap 13.1 (5-19); Aspartate Amino Transferase 33 U/L (0-40); Blood Urea Nitrogen 11 mg/dL (8-23); Calcium 8.8 mg/dL (8.5-10.5); Carbon Dioxide 28 mmol/L (22-29); Chloride 104 mmol/L (98-107); Globulin 3.9 g/dL (1.3-4.6); Glomerular Filtration Rate 165.9 mL/min (90-130); Glucose 123 mg/dL (65-115); Osmolality Calculated 293 mOsm/kg (285-295); Potassium 4.1 mmol/L (3.5-5.1); Sodium 141 mmol/L (136-145); Total Bilirubin 0.8 mg/dL (0.15-1.2); Total Protein 6.2 g/dL (6.6-8.7)
[2020-11-23 05:22] LABS: Procalcitonin 0.45 ng/mL (0-0.5)
--- NOTE | 2020-11-23 07:29 | P.PN_ITS ---
Subjective Subjective: Interval history: POD #1 status post left above-knee amputation. Mr. Kessler rested well last night and notes that he has less discomfort than prior to the amputation. White count has decreased only slightly to 13.5 though his recorded temperature since surgery have been below 100. I do not see any actual recording of his drain output since surgery on the flow chart. Nurse reports yesterday evening that the output appeared to be about 15 to 20 cc. Vitals/I&O/Wt Last Vital Signs Temp 99.6 F 11/23/20 05:45 Pulse 83 11/23/20 06:00 Resp 24 H 11/23/20 06:29 BP 124/60 11/23/20 05:45 Pulse Ox 100 11/23/20 05:45 11/22/20 11/23/20 11/23/20 22:59 06:59 14:59 Intake Total 2740 / 3290 1578.333 / 4868.333 Output Total 850 / 850 750 / 1600 Balance 1890 / 2440 828.333 / 3268.333 Physical Exam Extremity: OTHER: Surgical dressing remains in place and I would leave it for another 24 hours prior to removal for incision inspection and determination of drain output and possible removal. Urinary Catheter Management^: Gordon: Cath Placed During This Visit: yes Reason for Continuing Indwelling Catheter: Accurate Measurement of Urinary Output in Critically Ill Patients Urinary Catheter Date of Insertion: 11/20/20 Urinary Catheter Time of Insertion: 13:35 Data : 11/23/20 03:12 11/23/20 03:12 Micro: Microbiology 11/21/20 05:20 Blood Culture - Preliminary Blood NEGATIVE TO DATE 11/21/20 05:10 Blood Culture - Preliminary Blood NEGATIVE TO DATE A&P Assessment and plan (1) Status post above-knee amputation of left lower extremity: POD #1 status post left AKA. Plan: I will leave surgical dressing in place for another 24 hours and then inspect incision and make determination, according to drain output, as to whether drain can be removed. Greatly appreciate expertise and medical oversight of our hospitalist colleagues. Status: Acute Attestations Medical Necessity Statement*: POD #1 status post left AKA secondary to critical ischemia with ascending cellulitis and unreconstructable PAD Time Spent in Patient Care: less than 15 minutes Coding Level of Care Code Acute Poacher Wringer Operator for [facility] Fwd Diagnoses Status post above-knee amputation of left lower extremity Z89.612
[2020-11-23] MEDS: ipratropium-albuterol 3 mL Neb INHALATION ×2 (07:33→19:49)
[2020-11-23] MEDS: budesonide 0.5 mg/2 mL Neb INHALATION ×2 (07:33→19:49)
[2020-11-23 07:44] LABS: Glucose Point of Care 113 mg/dL (70-110)
--- NOTE | 2020-11-23 08:10 | PC.NURSE ---
Pt had large loose stool, saturating surgical dressing. Called Dr. Parrish to see if dressing could be changed POD 1.
[2020-11-23] MEDS: oxyCODONE 5 mg IR Tab/Cap 10 MG PO ×3 (08:21→20:21)
[2020-11-23] MEDS: pantoprazole DR 40 mg Tablet PO (08:21)
--- NOTE | 2020-11-23 09:31 | PC.CHAP ---
Pastoral Care Encounter/Spiritual Assessment Type of Contact [] Declined core maker visit [] Patient/Family/Request visit [] Outpatient visit [] Follow-up visit [] Physician referral [] Code/Alert [x] Routine visit [] Staff referral [] Actively dying [] Patient sleeping [] Family support [] [] Out of room [] Palliative care [] [x] Receiving care in room [] Pre-surgical visit [] Trauma [] Long length of stay [x] ICU visit [x] Other: physical therapy present Relational/Emotional Strength [] Patient feels connected with others/family/visitors/staff [] Distress [] Loneliness/isolation [] Abandonment Spirituality of Patient [] Person of Donna [] Attends Adventist of their Donna [] Believes in Prayer [] Reads Bible or Church materials [] There are Spiritual issues to be addressed Tractor Mechanic Interventions [x] Prayer [] Active listening [] Non-anxious presence [] Spiritual/emotional support [] Crisis/trauma care [] Spiritual counseling [] Bereavement support [] Provided bereavement packet [] Provided Bible/devotional materials [] Provided toy/stuffed animal, coloring book to patient or family member [] Provided Communion [] Anointing/[facility] [] Salvation [x] Completed spiritual assessment [] Other: Impact on Illness or Injury [] Angry [] Fearful [] Anxious [] Often cries [] Exhaustion [] Unable to work [] Unable to attend restorationist [] Unable to walk/stand [] Unable to read [] Unable to drive [] Unable to eat/drink [] Unable to sleep [] Unable to be with family [] Patient intubated [] Other: Summary Time spent with patient
--- NOTE | 2020-11-23 12:40 | PC.NURSE ---
Red bag was taken out of [facility] pyxis and brought to ICU. Son took wallet out of bag and gave to patient. Medications in bag brought out to nurses station and son stated he will take them home when he leaves today.
--- NOTE | 2020-11-23 12:47 | PM.PN ---
Subjective Subjective: Interval history: POD 1: Lt AKA. T-max: 101.9, WBC count has improved slightly at 13.5 T as compared to 14T. Clean and intact surgical dressing in place. procalcitonin: 0.45 Vitals/I&O/Wt Last Vital Signs Temp 98.2 F 11/23/20 08:00 Pulse 99 11/23/20 08:00 Resp 12 11/23/20 11:15 BP 143/67 11/23/20 08:00 Pulse Ox 97 11/23/20 07:37 11/22/20 11/23/20 11/23/20 22:59 06:59 14:59 Intake Total 2740 / 3290 1578.333 / 4868.333 460 / 460 Output Total 850 / 850 750 / 1600 Balance 1890 / 2440 828.333 / 3268.333 460 / 460 Physical Exam Const: COMMON NORMALS: patient oriented x3 HENMT: COMMON NORMALS: normocephalic and atraumatic HEAD & SCALP: normocephalic and atraumatic Chest: CHEST: Yes Symmetrical chest wall rise Resp: COMMON NORMALS: clear to auscultation bilaterally EFFORT & INSPECTION: Yes symmetric chest movement AUSCULTATION: clear to auscultation bilaterally Cardio: COMMON NORMALS: regular rate, regular rhythm, S1 normal heart sound present, S2 normal heart sound present, No gallops present (Cardio), No murmurs present (Cardio), No rub (Cardio) and Peripheral pulses 2+ throughout RATE: regular rate RHYTHM: regular rhythm HEART SOUNDS: S1 normal heart sound present and S2 normal heart sound present PERIPHERAL PULSES: Peripheral pulses 2+ throughout GI: COMMON NORMALS: Normal to inspection, nondistended, normoactive bowel sounds present, Soft to palpation, non-tender, No hepatosplenomegaly present and no masses AUSCULTATION: Yes normoactive bowel sounds PALPATION: Yes Soft to palpation and Yes No hepatosplenomegaly present RECTAL EXAM: Yes deferred Extremity: COMMON NORMALS: no clubbing, cyanosis or edema and no pedal edema OTHER: Right lower extremity Neuro: COMMON NORMALS: patient oriented x3 Urinary Catheter Management^: Gordon: Cath Placed During This Visit: yes Reason for Continuing Indwelling Catheter: Accurate Measurement of Urinary Output in Critically Ill Patients Urinary Catheter Date of Insertion: 11/20/20 Urinary Catheter Time of Insertion: 13:35 Data : 11/23/20 03:12 11/23/20 03:12 A&P Assessment and plan (1) Sepsis: Sepsis secondary to left lower extremity cellulitiis: fever, tachycardia, leukocytosis , extensive left lower extremity cellulitis, impending gangrene. ( N/F, gas gangrene ruled out based on MRI of the left lower extremity ) Lactic acid: Procalcitonin: 0.45 Blood cx thus far with no growth to date. MR lower leg LT wo/w con: Diffuse cellulitis of the left lower extremity.No convincing MRI evidence of significant myositis.Negative for osteomyelitis. 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 Patient was due for a femoropopliteal bypass with Dr. Parrish on December 06 per history. Currently on the CTA there is noted reconstitution of popliteal level via collaterals, popliteal artery has an attenuated appearance, however left infrapopliteal vessels are patent. continued vanc and zosyn, clindamycin 900 mg IV every 8 hourly added on 11/21 due to concern for narcotizing fasciitis. Has been discontinued. Appreciate cardiothoracic surgery recommendations : above-knee amputation. ( advanced cellulitic changes to his left leg at least 2 cm above the prior inked border noted on morning exam. It is now at the level of the patella. Given this continued advancement, I think it would be hazardous to attempt prosthetic graft placement a revascularization. Also given the fact that he is septic now, with persistent leukocytosis and fever) Appreciate orthopedic recommendations Status: Acute Qualifiers: Sepsis type: sepsis due to unspecified organism Sepsis acute organ dysfunction status: without acute organ dysfunction Qualified Code(s): A41.9 - Sepsis, unspecified organism (2) COPD (chronic obstructive pulmonary disease): not currently exacerbated duonebs and budesonide no steroids for now Status: Inactive Qualifiers: COPD type: unspecified COPD Qualified Code(s): J44.9 - Chronic obstructive pulmonary disease, unspecified (3) Cellulitis: plan as above Status: Acute Qualifiers: Laterality: left Site of cellulitis: extremity Site of cellulitis of extremity: lower extremity Qualified Code(s): L03.116 - Cellulitis of left lower limb (4) Critical ischemia of lower extremity: planned for fem pop bypass as outpatient , if no significant improvement, may need to plan for intervnetion current admission, consult Dr. Parrish once available on Sunday. Plavix on hold today as anticipate patient needing surgical intervention Currently on heparin infusion due to concern for developing ischemia Status: Acute Additional A&P Information DVT ppx: on heparin infusion Full code Attestations Medical Necessity Statement*: Patient needs to be in hospital for management status post left AKA Coding Level of Care Code Acute Food Truck Caterer for [facility] Fwd Diagnoses Sepsis A41.9 Sepsis type: sepsis due to unspecified organism Sepsis acute organ dysfunction status: without acute organ dysfunction COPD (chronic obstructive pulmonary disease) J44.9 COPD type: unspecified COPD Cellulitis L03.116 Laterality: left Site of cellulitis: extremity Site of cellulitis of extremity: lower extremity Critical ischemia of lower extremity I70.229
[2020-11-23 12:48] LABS: Quest SARS-CoV-2 RNA NOT DETECTED (NOT DETECTED)
[2020-11-23 14:07] LABS: Glucose Point of Care 134 mg/dL (70-110)
--- NOTE | 2020-11-23 16:20 | PC.NURSE ---
Dressing to left leg was removed. leg cleaned and new dressing applied. Pt had BM on dressing.
[2020-11-23 17:27] LABS: Glucose Point of Care 144 mg/dL (70-110)
[2020-11-23] MEDS: vancomycin 1,500 MG/300 ML PIGGYBACK 300 MG IV (17:36)
[2020-11-23] MEDS: enoxaparin 40 mg/0.4 mL Syringe SUBCUT (20:19)
[2020-11-23] MEDS: gabapentin 400 mg Capsule 2400 MG PO (20:20)
[2020-11-23] MEDS: trazodone 100 mg Tablet 200 MG PO (20:21)
[2020-11-23 21:03] LABS: Glucose Point of Care 124 mg/dL (70-110)
[2020-11-24] VITALS (51 sets, daily range): BP systolic 103–183; BP diastolic 54–139; PULSE 84–120; RESP 13–35; TEMP 37.2–38.6; O2SAT 85–99
[2020-11-24] MEDS: morphine 4 mg/mL SDV 1 mL IVP ×6 (03:27→22:24)
[2020-11-24] MEDS: vancomycin 1,500 MG/300 ML PIGGYBACK 150 MG IV (03:33)
[2020-11-24 03:40] LABS: Basophils % 0.3 %; Eosinophils % 0.4 %; Hematocrit 27.8 % (42.0-52.0); Hemoglobin 8.9 g/dL (11.7-16.6); Lymphocytes % 20.5 %; Mean Corpuscular Hemoglobin 30.6 pg (28.0-34.0); Mean Corpuscular Volume 95.5 fL (80-94); Mean Platelet Volume 9.9 fL (7.4-10.4); Monocytes # 0.6 10^3/uL (0.2-0.9); Monocytes % 5.6 %; Neutrophils # 7.18 10^3/uL (1.8-7.7); Neutrophils % 72.2 %; Nucleated Red Blood Cells % 0 %; Platelet Count 338 10^3/cmm (130-400); Red Blood Count 2.91 10^6/uL (4.1-5.3); Red Cell Distribution Width 14.6 % (12.1-15.1)
[2020-11-24 04:00] LABS: Blood Urea Nitrogen 14 mg/dL (8-23); Calcium 8.2 mg/dL (8.5-10.5); Carbon Dioxide 31 mmol/L (22-29); Chloride 103 mmol/L (98-107); Glomerular Filtration Rate 134.4 mL/min (90-130); Glucose 96 mg/dL (65-115); Osmolality Calculated 284 mOsm/kg (285-295); Sodium 137 mmol/L (136-145)
--- NOTE | 2020-11-24 07:08 | PM.PN ---
Subjective Subjective: Interval history: Postop day #2 status post left above-knee amputation. White count is down to 10,000 this morning. Remains afebrile. Hemovac drain output 30 cc past 12 hours. KARMA drain was discontinued. Incision line is clean and intact. New dressing applied. Postoperative discomfort is under good control. Vitals/I&O/Wt Last Vital Signs Temp 99 F 11/24/20 04:00 Pulse 89 11/24/20 04:45 Resp 22 H 11/24/20 06:39 BP 117/54 11/24/20 04:45 Pulse Ox 93 11/24/20 06:39 11/23/20 11/24/20 11/24/20 22:59 06:59 14:59 Intake Total 450 / 1230 100 / 1330 Output Total 300 / 1100 Balance 150 / 130 100 / 230 Physical Exam Extremity: OTHER: Surgical incision line is intact. No ecchymosis or substantial fluid collection noted. Hemovac drain output was low, therefore DC'd. Urinary Catheter Management^: Gordon: Cath Placed During This Visit: yes Reason for Continuing Indwelling Catheter: Accurate Measurement of Urinary Output in Critically Ill Patients Urinary Catheter Date of Insertion: 11/20/20 Urinary Catheter Time of Insertion: 13:35 Data : 11/24/20 03:15 11/24/20 03:15 A&P Assessment and plan (1) Status post above-knee amputation of left lower extremity: POD #2. May transfer at discretion of our hospitalist colleagues. Plans are currently underway for skilled care at discharge. Status: Acute Attestations Medical Necessity Statement*: POD #2 status post AKA for critical ischemia with ascending cellulitis and sepsis Time Spent in Patient Care: 16 - 35 minutes Coding Level of Care Code Acute Statement Clerks Manager for [facility] Fwd Diagnoses Status post above-knee amputation of left lower extremity Z89.612
--- NOTE | 2020-11-24 07:16 | PC.NURSE ---
Shift Summary Patient has been appropriate and cooperative all night, has had a lot of phantom pain but has been very pleasant about it. Morphine and oxy seems to help him the most with his pain, He had really good urine output last night, and Dr Sandoval came by and changed his dressing at 0630, said from his standpoint he is okay to move upstairs. Patient has had no issues throughout the night.
[2020-11-24 07:49] LABS: Glucose Point of Care 117 mg/dL (70-110)
--- NOTE | 2020-11-24 08:03 | XR_ITS ---
WS: [id number] Exam: XR chest 1V portable [id number] Date/Time of Exam: 11/24/2020 8:12 AM Reason For Exam: SOB Comparison 11/19/2020. The lungs are clear and fully inflated. Normal cardiomediastinal structures and bony elements. No ple ural effusions. Mild plaque atelectasis in the right lower lung zone. XR/XR chest 1V portable [id number] IMPRESSION: 1. No acute cardiopulmonary finding.
--- NOTE | 2020-11-24 08:08 | PM.PN ---
Subjective Subjective: Interval history: S/P postoperative day 2 : WBC count is trending down: T-max: 100.1 , Hemovac drain output 30 cc past 12 hours. KARMA drain was discontinued. Medications: Reviewed: Yes Vitals/I&O/Wt Last Vital Signs Temp 99 F 11/24/20 04:00 Pulse 90 11/24/20 06:00 Resp 22 H 11/24/20 06:39 BP 117/54 11/24/20 04:45 Pulse Ox 93 11/24/20 06:39 11/23/20 11/24/20 11/24/20 22:59 06:59 14:59 Intake Total 450 / 1230 400 / 1630 Output Total 300 / 1100 880 / 1980 Balance 150 / 130 -480 / -350 Physical Exam Const: COMMON NORMALS: patient oriented x3 HENMT: COMMON NORMALS: normocephalic and atraumatic HEAD & SCALP: normocephalic and atraumatic Chest: CHEST: Yes Symmetrical chest wall rise Resp: COMMON NORMALS: clear to auscultation bilaterally EFFORT & INSPECTION: Yes symmetric chest movement AUSCULTATION: clear to auscultation bilaterally Cardio: COMMON NORMALS: regular rate, regular rhythm, S1 normal heart sound present, S2 normal heart sound present, No gallops present (Cardio), No murmurs present (Cardio), No rub (Cardio) and Peripheral pulses 2+ throughout RATE: regular rate RHYTHM: regular rhythm HEART SOUNDS: S1 normal heart sound present and S2 normal heart sound present PERIPHERAL PULSES: Peripheral pulses 2+ throughout GI: COMMON NORMALS: Normal to inspection, nondistended, normoactive bowel sounds present, Soft to palpation, non-tender, No hepatosplenomegaly present and no masses AUSCULTATION: Yes normoactive bowel sounds PALPATION: Yes Soft to palpation and Yes No hepatosplenomegaly present RECTAL EXAM: Yes deferred Extremity: COMMON NORMALS: no clubbing, cyanosis or edema and no pedal edema OTHER: Right lower extremity Neuro: COMMON NORMALS: patient oriented x3 Urinary Catheter Management^: Gordon: Cath Placed During This Visit: yes Reason for Continuing Indwelling Catheter: Accurate Measurement of Urinary Output in Critically Ill Patients Urinary Catheter Date of Insertion: 11/20/20 Urinary Catheter Time of Insertion: 13:35 Data : 11/24/20 03:15 11/24/20 03:15 A&P Assessment and plan (1) Sepsis: Sepsis secondary to left lower extremity cellulitiis: fever, tachycardia, leukocytosis , extensive left lower extremity cellulitis, impending gangrene. ( N/F, gas gangrene ruled out based on MRI of the left lower extremity ) Lactic acid: Procalcitonin: 0.45 Blood cx thus far with no growth to date. MR lower leg LT wo/w con: Diffuse cellulitis of the left lower extremity.No convincing MRI evidence of significant myositis.Negative for osteomyelitis. 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 Patient was due for a femoropopliteal bypass with Dr. Parrish on December 06 per history. Currently on the CTA there is noted reconstitution of popliteal level via collaterals, popliteal artery has an attenuated appearance, however left infrapopliteal vessels are patent. continued vanc and zosyn, clindamycin 900 mg IV every 8 hourly added on 11/21 due to concern for narcotizing fasciitis. Has been discontinued. Appreciate cardiothoracic surgery recommendations : above-knee amputation. ( advanced cellulitic changes to his left leg at least 2 cm above the prior inked border noted on morning exam. It is now at the level of the patella. Given this continued advancement, I think it would be hazardous to attempt prosthetic graft placement a revascularization. Also given the fact that he is septic now, with persistent leukocytosis and fever) Appreciate orthopedic recommendations Status: Acute Qualifiers: Sepsis type: sepsis due to unspecified organism Sepsis acute organ dysfunction status: without acute organ dysfunction Qualified Code(s): A41.9 - Sepsis, unspecified organism (2) COPD (chronic obstructive pulmonary disease): not currently exacerbated duonebs and budesonide no steroids for now Status: Inactive Qualifiers: COPD type: unspecified COPD Qualified Code(s): J44.9 - Chronic obstructive pulmonary disease, unspecified (3) Cellulitis: plan as above Status: Acute Qualifiers: Laterality: left Site of cellulitis: extremity Site of cellulitis of extremity: lower extremity Qualified Code(s): L03.116 - Cellulitis of left lower limb (4) Heart failure with preserved ejection fraction: Currently compensated. Length of stay: 4.3 Ls Lasix 40 mg IV daily. We will switch to Lasix 40 p.o. daily from a.m. Status: Acute (5) Critical ischemia of lower extremity: S/P LT AKA Status: Acute Additional A&P Information DVT ppx: on heparin infusion Full code Attestations Medical Necessity Statement*: Patient needs to be in hospital for management of above defined problem. Coding Level of Care Code Acute Food Service Director for [facility] Fwd Diagnoses Sepsis A41.9 Sepsis type: sepsis due to unspecified organism Sepsis acute organ dysfunction status: without acute organ dysfunction COPD (chronic obstructive pulmonary disease) J44.9 COPD type: unspecified COPD Cellulitis L03.116 Laterality: left Site of cellulitis: extremity Site of cellulitis of extremity: lower extremity Heart failure with preserved ejection fraction I50.30 Critical ischemia of lower extremity I70.229
[2020-11-24] MEDS: ipratropium-albuterol 3 mL Neb INHALATION ×3 (08:18→19:38)
[2020-11-24] MEDS: budesonide 0.5 mg/2 mL Neb INHALATION ×2 (08:18→19:38)
[2020-11-24] MEDS: FUROsemide 10 mg/mL SDV 4mL 40 MG IVP (09:30)
[2020-11-24] MEDS: pantoprazole DR 40 mg Tablet PO (09:31)
--- NOTE | 2020-11-24 09:38 | PC.CHAP ---
Pastoral Care Encounter/Spiritual Assessment Type of Contact [] Declined personal secretary visit [] Patient/Family/Request visit [] Outpatient visit [] Follow-up visit [] Physician referral [] Code/Alert [x] Routine visit [] Staff referral [] Actively dying [] Patient sleeping [] Family support [] [] Out of room [] Palliative care [] [x] Receiving care in room [] Pre-surgical visit [] Trauma [] Long length of stay [x] ICU visit [] Other: Relational/Emotional Strength [] Patient feels connected with others/family/visitors/staff [] Distress [] Loneliness/isolation [] Abandonment Spirituality of Patient [] Person of Donna [] Attends Mormonism of their Donna [] Believes in Prayer [] Reads Bible or Evangelical materials [] There are Spiritual issues to be addressed Side Laster Interventions [x] Prayer [] Active listening [] Non-anxious presence [] Spiritual/emotional support [] Crisis/trauma care [] Spiritual counseling [] Bereavement support [] Provided bereavement packet [] Provided Bible/devotional materials [] Provided toy/stuffed animal, coloring book to patient or family member [] Provided Communion [] Anointing/[place] [] Salvation [x] Completed spiritual assessment [] Other: Impact on Illness or Injury [] Angry [] Fearful [] Anxious [] Often cries [] Exhaustion [] Unable to work [] Unable to attend jain [] Unable to walk/stand [] Unable to read [] Unable to drive [] Unable to eat/drink [] Unable to sleep [] Unable to be with family [] Patient intubated [] Other: Summary Time spent with patient
--- NOTE | 2020-11-24 10:52 | PC.SOCIAL ---
IMM Updated Updated pt on Pg 2 IMM. No questions voiced. Provided pt a copy. Signed, dated, & timed copy in chart.
--- NOTE | 2020-11-24 17:33 | PC.NURSE ---
PT refuses to have BS checked. STates that he is not a diabetic. Dr. Mckay notified.
[2020-11-24] MEDS: vancomycin 1,500 MG/300 ML PIGGYBACK 250 MG IV (18:40)
[2020-11-24] MEDS: enoxaparin 40 mg/0.4 mL Syringe SUBCUT (18:40)
[2020-11-24 19:55] LABS: Glucose Point of Care 163 mg/dL (70-110)
[2020-11-24] MEDS: gabapentin 400 mg Capsule 2400 MG PO (20:04)
[2020-11-24] MEDS: trazodone 100 mg Tablet 200 MG PO (20:05)
--- NOTE | 2020-11-24 23:27 | PC.NURSE ---
Orders received to transfer pt to med surg floor. Belongings sent with pt. Report given. Pt transferred by bed at 2325. Receiving nurse in room upon transfer. Pt stated will call family in a.m. with new room number.
[2020-11-25] VITALS (16 sets, daily range): BP systolic 108–151; BP diastolic 66–84; PULSE 76–85; RESP 16–18; TEMP 36.8–37.4; O2SAT 91–97
[2020-11-25] MEDS: vancomycin 1,500 MG/300 ML PIGGYBACK 200 MG IV ×2 (03:59→16:36)
[2020-11-25] MEDS: oxyCODONE-APAP 10-325 mg Tablet 1 TAB PO ×4 (04:32→18:19)
--- NOTE | 2020-11-25 04:47 | PC.NURSE ---
Shift Summary Patient transferred from ICU to [facility] floor at 2300. Patient has had a good night, sleeping mostly. Have asked patient during rounding if he was having any pain patient stated no, I am fine at this time . patient did receive oxycodone at 4:30 this morning for pain. It was reported to this nurse that patient had a fever of 101.4 at 4:00 patients temp was 98.2. Patient is on 2L nasal cannula at bedtime this is his baseline.
[2020-11-25 06:40] LABS: Basophils # 0.1 10^3/uL (0.0-0.1); Basophils % 0.6 %; Eosinophils # 0.1 10^3/uL (0.0-0.8); Eosinophils % 0.7 %; Hematocrit 28.7 % (42.0-52.0); Lymphocytes # 1.7 10^3/uL (0.8-4.8); Lymphocytes % 17.7 %; Mean Corpuscular HGB Conc 31.4 g/dL (30.0-36.0); Mean Corpuscular Hemoglobin 29.6 pg (28.0-34.0); Mean Corpuscular Volume 94.4 fL (80-94); Mean Platelet Volume 10.3 fL (7.4-10.4); Monocytes # 0.5 10^3/uL (0.2-0.9); Monocytes % 4.7 %; Neutrophils # 7.37 10^3/uL (1.8-7.7); Neutrophils % 75.5 %; Nucleated Red Blood Cells % 0 %; Platelet Count 380 10^3/cmm (130-400); Red Blood Count 3.04 10^6/uL (4.1-5.3); Red Cell Distribution Width 14.4 % (12.1-15.1); White Blood Count 9.8 10^3/uL (4.0-10.0)
[2020-11-25 06:47] LABS: Glucose Point of Care 116 mg/dL (70-110)
[2020-11-25 07:02] LABS: Anion Gap 10.8 (5-19); Blood Urea Nitrogen 14 mg/dL (8-23); Calcium 8.3 mg/dL (8.5-10.5); Carbon Dioxide 30 mmol/L (22-29); Chloride 101 mmol/L (98-107); Glomerular Filtration Rate 134.4 mL/min (90-130); Glucose 103 mg/dL (65-115); Osmolality Calculated 287 mOsm/kg (285-295); Potassium 3.8 mmol/L (3.5-5.1); Sodium 138 mmol/L (136-145)
[2020-11-25] MEDS: ipratropium-albuterol 3 mL Neb INHALATION ×2 (07:43→20:37)
[2020-11-25] MEDS: budesonide 0.5 mg/2 mL Neb INHALATION ×2 (07:43→20:37)
[2020-11-25] MEDS: FUROsemide 40 mg Tablet PO (08:38)
[2020-11-25] MEDS: pantoprazole DR 40 mg Tablet PO (08:38)
--- NOTE | 2020-11-25 08:57 | P.PN_ITS ---
Subjective Subjective: Interval history: POD #3 status post left above-knee amputation. Postoperative discomfort is under good control. He looks quite good sitting up this morning. Vitals/I&O/Wt Last Vital Signs Temp 98.2 F 11/25/20 07:58 Pulse 79 11/25/20 07:58 Resp 18 11/25/20 08:41 BP 123/66 11/25/20 07:58 Pulse Ox 91 11/25/20 07:58 11/24/20 11/25/20 11/25/20 22:59 06:59 14:59 Intake Total 620 / 1040 600 / 1640 Output Total 2050 / 4050 900 / 4950 Balance -1430 / -3010 -300 / -3310 Physical Exam Extremity: OTHER: Left AKA incision line remains intact and dry. Urinary Catheter Management^: Gordon: Cath Placed During This Visit: yes Reason for Continuing Indwelling Catheter: Accurate Measurement of Urinary Output in Critically Ill Patients Urinary Catheter Date of Insertion: 11/20/20 Urinary Catheter Time of Insertion: 13:35 Data : 11/25/20 06:00 11/25/20 06:00 Micro: Microbiology 11/19/20 15:40 Blood Culture - Final Blood NO GROWTH AFTER 5 DAYS 11/19/20 15:13 Blood Culture - Final Blood NO GROWTH AFTER 5 DAYS A&P Assessment and plan (1) Status post above-knee amputation of left lower extremity: May discharge to senior living care at discretion of our hospitalist colleagues. Follow-up in wound care clinic next week. Clean incision daily, paint with Betadine, and recover. Status: Acute Attestations Medical Necessity Statement*: Status post left above-knee amputation secondary to critical limb ischemia Time Spent in Patient Care: less than 15 minutes Coding Level of Care Code Acute Violin Teacher for [facility] Diagnoses Status post above-knee amputation of left lower extremity Z89.612
[2020-11-25 11:25] LABS: Glucose Point of Care 172 mg/dL (70-110)
--- NOTE | 2020-11-25 17:45 | PM.PN ---
Subjective Subjective: Interval history: No acute events overnight, patient is overall doing better. T-max: 101.4 Medications: Reviewed: Yes Vitals/I&O/Wt Last Vital Signs Temp 99.3 F 11/25/20 16:00 Pulse 80 11/25/20 16:00 Resp 18 11/25/20 16:00 BP 108/70 11/25/20 16:00 Pulse Ox 95 11/25/20 16:00 11/25/20 11/25/20 11/25/20 06:59 14:59 22:59 Intake Total 600 / 1640 680 / 680 Output Total 900 / 4950 1000 / 1000 Balance -300 / -3310 -320 / -320 Physical Exam Const: COMMON NORMALS: patient oriented x3 HENMT: COMMON NORMALS: normocephalic and atraumatic HEAD & SCALP: normocephalic and atraumatic Chest: CHEST: Yes Symmetrical chest wall rise Resp: COMMON NORMALS: clear to auscultation bilaterally EFFORT & INSPECTION: Yes symmetric chest movement AUSCULTATION: clear to auscultation bilaterally Cardio: COMMON NORMALS: regular rate, regular rhythm, S1 normal heart sound present, S2 normal heart sound present, No gallops present (Cardio), No murmurs present (Cardio), No rub (Cardio) and Peripheral pulses 2+ throughout RATE: regular rate RHYTHM: regular rhythm HEART SOUNDS: S1 normal heart sound present and S2 normal heart sound present PERIPHERAL PULSES: Peripheral pulses 2+ throughout GI: COMMON NORMALS: Normal to inspection, nondistended, normoactive bowel sounds present, Soft to palpation, non-tender, No hepatosplenomegaly present and no masses AUSCULTATION: Yes normoactive bowel sounds PALPATION: Yes Soft to palpation and Yes No hepatosplenomegaly present RECTAL EXAM: Yes deferred Extremity: COMMON NORMALS: no clubbing, cyanosis or edema and no pedal edema OTHER: Left AKA, incision is clean intact and dry. Right feet; redness and swelling is improved. Neuro: COMMON NORMALS: patient oriented x3 Urinary Catheter Management^: Gordon: Cath Placed During This Visit: yes Reason for Continuing Indwelling Catheter: Accurate Measurement of Urinary Output in Critically Ill Patients Urinary Catheter Date of Insertion: 11/20/20 Urinary Catheter Time of Insertion: 13:35 Data : 11/25/20 06:00 11/25/20 06:00 Micro: Microbiology 11/19/20 15:40 Blood Culture - Final Blood NO GROWTH AFTER 5 DAYS 11/19/20 15:13 Blood Culture - Final Blood NO GROWTH AFTER 5 DAYS A&P Assessment and plan (1) Sepsis: Sepsis secondary to left lower extremity cellulitiis: fever, tachycardia, leukocytosis , extensive left lower extremity cellulitis, impending gangrene. ( N/F, gas gangrene ruled out based on MRI of the left lower extremity ) Lactic acid: Procalcitonin: 0.45 Blood cx thus far with no growth to date. MR lower leg LT wo/w con: Diffuse cellulitis of the left lower extremity.No convincing MRI evidence of significant myositis.Negative for osteomyelitis. 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 Patient was due for a femoropopliteal bypass with Dr. Parrish on December 06 per history. Currently on the CTA there is noted reconstitution of popliteal level via collaterals, popliteal artery has an attenuated appearance, however left infrapopliteal vessels are patent. continued vanc and Primaxin, clindamycin 900 mg IV every 8 hourly added on 11/21 due to concern for narcotizing fasciitis. Has been discontinued. Appreciate cardiothoracic surgery recommendations : above-knee amputation. ( advanced cellulitic changes to his left leg at least 2 cm above the prior inked border noted on morning exam. It is now at the level of the patella. Given this continued advancement, I think it would be hazardous to attempt prosthetic graft placement a revascularization. Also given the fact that he is septic now, with persistent leukocytosis and fever) Appreciate orthopedic recommendations Status: Acute Qualifiers: Sepsis type: sepsis due to unspecified organism Sepsis acute organ dysfunction status: without acute organ dysfunction Qualified Code(s): A41.9 - Sepsis, unspecified organism (2) COPD (chronic obstructive pulmonary disease): not currently exacerbated duonebs and budesonide no steroids for now Status: Inactive Qualifiers: COPD type: unspecified COPD Qualified Code(s): J44.9 - Chronic obstructive pulmonary disease, unspecified (3) Cellulitis: plan as above Status: Acute Qualifiers: Laterality: left Site of cellulitis: extremity Site of cellulitis of extremity: lower extremity Qualified Code(s): L03.116 - Cellulitis of left lower limb (4) Heart failure with preserved ejection fraction: Currently compensated. Length of stay: 4.3 Ls Initially on Lasix 40 mg IV daily. switched to Lasix 40 p.o. daily Status: Acute (5) Critical ischemia of lower extremity: S/P LT AKA Status: Acute Additional A&P Information DVT ppx: on heparin infusion Full code Attestations Medical Necessity Statement*: Patient needs to be in hospital for management of s/p left AKA. Coding Level of Care Code Acute Signs Sales Representative for [facility] Fwd Diagnoses Sepsis A41.9 Sepsis type: sepsis due to unspecified organism Sepsis acute organ dysfunction status: without acute organ dysfunction COPD (chronic obstructive pulmonary disease) J44.9 COPD type: unspecified COPD Cellulitis L03.116 Laterality: left Site of cellulitis: extremity Site of cellulitis of extremity: lower extremity Heart failure with preserved ejection fraction I50.30 Critical ischemia of lower extremity I70.229
[2020-11-25] MEDS: enoxaparin 40 mg/0.4 mL Syringe SUBCUT (18:19)
[2020-11-25] MEDS: gabapentin 400 mg Capsule 2400 MG PO (20:13)
[2020-11-25] MEDS: trazodone 100 mg Tablet 200 MG PO (20:14)
[2020-11-26] VITALS (10 sets, daily range): BP systolic 116–155; BP diastolic 72–82; PULSE 76–88; RESP 16–18; TEMP 36.7–37.3; O2SAT 90–95
[2020-11-26 02:39] LABS: Basophils # 0.1 10^3/uL (0.0-0.1); Basophils % 0.6 %; Eosinophils # 0.2 10^3/uL (0.0-0.8); Eosinophils % 1.7 %; Hematocrit 30.4 % (42.0-52.0); Hemoglobin 9.5 g/dL (11.7-16.6); Lymphocytes # 2.2 10^3/uL (0.8-4.8); Mean Corpuscular HGB Conc 31.3 g/dL (30.0-36.0); Mean Corpuscular Hemoglobin 29.8 pg (28.0-34.0); Mean Corpuscular Volume 95.3 fL (80-94); Mean Platelet Volume 10.2 fL (7.4-10.4); Monocytes # 0.4 10^3/uL (0.2-0.9); Monocytes % 4.2 %; Neutrophils # 6.26 10^3/uL (1.8-7.7); Neutrophils % 68.8 %; Nucleated Red Blood Cells % 0 %; Platelet Count 429 10^3/cmm (130-400); Red Blood Count 3.19 10^6/uL (4.1-5.3); Red Cell Distribution Width 14.2 % (12.1-15.1); White Blood Count 9.1 10^3/uL (4.0-10.0)
[2020-11-26 03:02] LABS: Blood Urea Nitrogen 15 mg/dL (8-23); Calcium 8.6 mg/dL (8.5-10.5); Carbon Dioxide 29 mmol/L (22-29); Chloride 103 mmol/L (98-107); Glomerular Filtration Rate 134.4 mL/min (90-130); Glucose 103 mg/dL (65-115); Osmolality Calculated 289 mOsm/kg (285-295); Sodium 139 mmol/L (136-145)
[2020-11-26] MEDS: vancomycin 1,500 MG/300 ML PIGGYBACK 200 MG IV (03:07)
[2020-11-26] MEDS: oxyCODONE-APAP 10-325 mg Tablet 1 TAB PO ×2 (04:40→09:11)
[2020-11-26] MEDS: FUROsemide 40 mg Tablet PO (09:06)
[2020-11-26] MEDS: pantoprazole DR 40 mg Tablet PO (09:06)
[2020-11-26] MEDS: ipratropium-albuterol 3 mL Neb INHALATION (09:07)
[2020-11-26] MEDS: budesonide 0.5 mg/2 mL Neb INHALATION (09:07)
--- NOTE | 2020-11-26 10:10 | PC.SOCIAL ---
*IMM UPDATE* Gave patient IMM update, provided him copy of page 2. Verbalized understanding. 11/26/20 @ 0912 Initialed, dated, timed and placed in chart.
--- NOTE | 2020-11-26 12:27 | P.DS_ITS ---
Discharge Providers Date of Admission: 11/19/20 20:27 Date of Discharge: November 26, 2020 Attending Provider at Admission: Debora Perea MD Attending Provider at Discharge: Albert Mckay MD Primary Care Provider: Carla Santos MD Diagnoses at Discharge Discharge Diagnosis (1) Sepsis: Status: Resolved Qualifiers: Sepsis acute organ dysfunction status: without acute organ dysfunction Sepsis type: sepsis due to unspecified organism Qualified Code(s): A41.9 - Sep sis, unspecified organism (2) COPD (chronic obstructive pulmonary disease): Status: Chronic Qualifiers: COPD type: unspecified COPD Qualified Code(s): J44.9 - Chronic obstructive pulmonary disease, unspecified (3) Cellulitis: Status: Resolved Qualifiers: Laterality: left Site of cellulitis: extremity Site of cellulitis of extremity: lower extremity Qualified Code(s): L03.116 - Cellulitis of left lower limb (4) Heart failure with preserved ejection fraction: Status: Chronic (5) Critical ischemia of lower extremity: Status: Acute Permanent problem details: s/p Lt AKA Reason for Visit Reason for Visit: CANT WALK / LEG PAIN Hospital Course Hospital Course 65-year-old male with past medical history of COPD, hypertension , heart failure with preservation fraction, PVD with critical limb ischemia with nonhealing left foot ulcers with multiple failed peripheral intervention, planned for fem-pop bypass as outpatient comes in with pain to his left leg and inability to walk. On admission he had cellulitis of his left lower extremity to above his knee streaking up almost to the thigh with signs of sepsis with fever, leukocytosis. He was admitted for the management of sepsis secondary to left lower extremity cellulitis. Procalcitonin: 0.45. Blood cx no growth. MR lower leg LT wo/w con: Diffuse cellulitis of the left lower extremity.No convincing MRI evidence of significant myositis.Negative for osteomyelitis. 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 Currently on the CTA there is noted reconstitution of popliteal level via collaterals, popliteal artery has an attenuated appearance, however left infrapopliteal vessels are patent. Initial plan was femoropopliteal bypass by Dr. Parrish . Given the fact that with such advanced cellulitic changes to his left leg extending up to the level of the patella.Given this continued advancement, and patient being overtly septic with persistent leukocytosis and fever cardiothoracic surgeon Dr. Parrish decided it would be hazardous to attempt prosthetic graft placement for revascularization.Unfortunately patient underwent left AKA. During this entire hospital stay he was kept on broad-spectrum antibi otic, at the time of discharge he was discharged on levofloxacin for another 7 as he also had right lower extremity minimal cellulitis changes on at the time of discharge.During this hospital stay there was also concerns for possible necrotizing fasciitis/gas gangrene, for which MRI of the left lower extremity was done and the study was negative for any N/F or gas gangrene. Orthopedic consult was seeked for the same. At the time of discharge his left lower extremity incision site was clean and dry.He remained afebrile, WBC was normal.Patient responded well to the above medical management And was discharged in stable condition.He will continue to follow with Dr. Parrish as an outpatient, as well as cardiology as an outpatient. Physical Exam Const: COMMON NORMALS: patient oriented x3 HENMT: COMMON NORMALS: normocephalic and atraumatic HEAD & SCALP: normocephalic and atraumatic Chest: CHEST: Yes Symmetrical chest wall rise Resp: COMMON NORMALS: clear to auscultation bilaterally EFFORT & INSPECTION: Yes symmetric chest movement AUSCULTATION: clear to auscultation bilaterally Cardio: COMMON NORMALS: regular rate, regular rhythm, S1 normal heart sound present, S2 normal heart sound present, No gallops present (Cardio), No murmurs present (Cardio), No rub (Cardio) and Peripheral pulses 2+ throughout RATE: r egular rate RHYTHM: regular rhythm HEART SOUNDS: S1 normal heart sound present and S2 normal heart sound present PERIPHERAL PULSES: Peripheral pulses 2+ throughout GI: COMMON NORMALS: Normal to inspection, nondistended, normoactive bowel sounds present, Soft to palpation, non-tender, No hepatosplenomegaly present and no masses AUSCULTATION: Yes normoactive bowel sounds PALPATION: Yes Soft to palpation and Yes No hepatosplenomegaly present RECTAL EXAM: Yes deferred Extremity: COMMON NORMALS: no clubbing, cyanosis or edema and no pedal edema OTHER: Left AKA, incision is clean intact and dry.Right feet; redness and swelling is improved. Neuro: COMMON NORMALS: patient oriented x3 Urinary Catheter Management^: Gordon: Cath Placed During This Visit: yes, but has since been removed by the nurse Reason for Continuing Indwelling Catheter: Accurate Measurement of Urinary Output in Critically Ill Patients Urinary Catheter Date of Insertion: 11/20/20 Urinary Catheter Time of Insertion: 13:35 Date Urinary Catheter Removed: 11/25/20 Time Urinary Catheter Discontinued: 18:15 Discharge Data Data Completed and Pending: Completed Studies During Hospitalization Category Date Time Status CT angio abd aort a runof [id number] Urge nt Cat Scan 11/19/20 15:02 Completed XR chest 1V gonzalez ble [id number] Routine Exams 11/24/20 08:03 Completed XR chest 1V gonzalez ble [id number] Urgent Exams 11/19/20 15:02 Completed MR lower leg LT w o/w con [id number] Stat MRI 11/21/20 12:59 Completed Pending at discharge Category Date Time Status Basic Metabolic P ana paula AM LABS Lab 11/27/20 04:00 Ordered Complete Blood Co unt w/Auto AM LABS Lab 11/27/20 04:00 Ordered Pathology: Surgic al [PTH] Routine Pth 11/22/20 14:41 Received Labs from last 24 hours 11/26/20 11/26/20 11/22/20 02:06 02:06 06:51 WBC 9.1 RBC 3.19 L Hgb 9.5 L Hct 30.4 L MCV 95.3 H MCH 29.8 MCHC 31.3 RDW 14.2 Plt Count 429 H MPV 10.2 Neut % (Auto) 68.8 Lymph % (Auto) 24.0 [place] % (Auto) 4.2 Eos % (Auto) 1.7 Baso % (Auto) 0.6 Neut # (Auto) 6.26 Lymph # (Auto) 2.2 [place] # (Auto) 0.4 Eos # (Auto) 0.2 Baso # (Auto) 0.1 Nucleated RBC % (a uto) 0 Nucleated RBCs # 0.0 Sodium 139 Potassium 4.0 Chloride 103 Carbon Dioxide 29 Anion Gap 11.0 BUN 15 Creatinine 0.6 L GFR Calculation 134.4 H Glucose 103 Calculated Osmolal ity 289 Calcium 8.6 Crossmatch See Detail Vitals: Last Vital Signs Temp 98.2 F 11/26/20 12:00 Pulse 87 11/26/20 12:00 Resp 17 11/26/20 12:00 BP 116/72 11/26/20 12:00 Pulse Ox 91 11/26/20 12:00 Discharge Plan Discharge Patient Disposition: Xfer SNF Condition: Stable Prescriptions: New levofloxacin 500 mg tablet 500 mg PO DAILY 7 Days Qty: 7 RF: 0 Klor-Con 10 10 mEq tablet extended release 10 meq PO DAILY Qty: 30 RF: 0 oxycodone-acetaminophen 10-325 mg Tablet 1 tab PO Q4H PRN (Reason: Moderate Pain) Qty: 20 RF: 0 Continued albuterol sulfate 90 mcg/actuation HFA aerosol inhaler 2 puff INHALATION Q6H PRN (Reason: Shortness Of Breath) RF: 0 celecoxib [Celebrex] 200 mg capsule 200 mg PO BEDTIME RF: 0 trazodone 100 mg tablet 200 mg PO BEDTIME RF: 0 prednisone 20 mg tablet 40 mg PO DAILY PRN (Reason: GOUT) RF: 0 oxycodone 10 mg tablet 10 mg PO QID PRN (Reason: pain) 30 Days Qty: 120 RF: 0 furosemide 40 mg tablet 40 mg PO DAILY Qty: 90 RF: 3 Repatha SureClick 140 mg/mL pen injector 140 mg SUBCUT Q14D Qty: 2 RF: 6 multivitamin Tablet 1 tab PO DAILY RF: 0 lisinopril-hydrochlorothiazide 10-12.5 mg tablet 0.5 tab PO DAILY RF: 0 Combivent Respimat 20-100 mcg/actuation mist 1 puff INHALATION BID RF: 0 Vitamin B-12 1 tab PO DAILY RF: 0 Vitamin D3 1 cap PO DAILY RF: 0 clopidogrel 75 mg tablet 75 mg PO DAILY@20 RF: 0 pentoxifylline 400 mg tablet extended release 400 mg PO TID@,, RF: 0 gabapentin 800 mg tablet 2,400 mg PO BEDTIME RF: 0 Eliquis 5 mg tablet 2.5 mg PO BID@ RF: 0 Discharge Orders: Discharge Order (Routine); Ordered 11/26/20 Ordered By: Albert Mckay Referrals: [facility] [Outside] Carla Santos MD [Primary Care Provider] - 4-7 days ([facility] to schedule an appointment to be seen by Dr. Santos in 4-7 days.) Gelacio Parrish MD [Physician] - 1 week (Please call [facility] on Sunday to schedule an appointment to be seen in one week.) [facility], [Staff Physician] - 1 week (Please call [facility] on Sunday to make an appointment to be seen in one week.) Discharge Diet: Regular Discharge Activity: Increase activity as tolerated Patient Instructions: Oxycodone/Acetaminophen (By mouth), Potassium Chloride (By mouth), Levofloxacin (By mouth), Cellulitis (DC), Above the Knee Amputation (DC), Sepsis (DC) Activity Restrictions/Additional Instructions: Clean incision daily. [place] with Betadine and allowed to dry. Then cover. Follow-up in wound care services next week. Discharge Attestations Time Spent in Discharge Care*: less than 30 min Specific Discharge Activities: educating patient, educating and/or supporting family/caregiver, discussing with pcp/other providers, discussing with immigration case worker/social workers/dc planners, documenting/other paperwork and evaluating patient/reviewing data Status at Discharge: Cognitive status at discharge: cognitively intact , Behavioral status at discharge: cooperative , Functional status at discharge: other assisted ambulation Overall status at discharge: patient is back to baseline Quality Metrics Clinical Quality Measures During this hospital stay, did patient experience: None Coding Level of Care Code Acute Chg FW DC note Diagnoses Sepsis A41.9 Sepsis acute organ dysfunction status: without acute organ dysfunction Sepsis type: sepsis due to unspecified organism COPD (chronic obstructive pulmonary disease) J44.9 COPD type: unspecified COPD Cellulitis L03.116 Laterality: left Site of cellulitis: extremity Site of cellulitis of extremity: lower extremity Heart failure with preserved ejection fraction I50.30 Critical ischemia of lower extremity I70.229
--- NOTE | 2020-11-26 14:57 | PC.NURSE ---
Called report to Violeta MACIAS at [facility]. IV has been removed. Dressing change to left stump has been done. Patient tolerated well.
== END 2020-11-26 14:00 | disposition skilled nursing facility (03) | DRG 854 ==
LOC: ER 18:21 → MEDSURG 11-20 06:56 → ICU 11-20 17:36 → MEDSURG 11-23 05:25 → ICU 11-23 05:43 → MEDSURG 11-24 22:54 → ICU 11-24 22:56 → MEDSURG 11-24 23:19
PROVIDERS: Internal Medicine; Thoracic Surgery (Cardiothoracic Vascular Surgery); Admitting Provider Student in an Organized Health Care Education/Training Program; Emergency Provider Family Medicine; PCP Family Medicine; Visit Provider Internal Medicine
PROC: 0Y6D0Z2 Detachment at Left Upper Leg, Mid, Open Approach (ICD-10-PCS; CPT 27590; principal; 2020-11-22 13:10)
DX: A41.9 Sepsis, unspecified organism (principal); E11.52 Type 2 diabetes mellitus with diabetic peripheral angiopathy with gangrene; I96 Gangrene, not elsewhere classified; L03.116 Cellulitis of left lower limb; I50.32 Chronic diastolic (congestive) heart failure; E11.621 Type 2 diabetes mellitus with foot ulcer; E11.42 Type 2 diabetes mellitus with diabetic polyneuropathy; L97.529 Non-pressure chronic ulcer of other part of left foot with unspecified severity; M19.90 Unspecified osteoarthritis, unspecified site; G89.29 Other chronic pain; M54.5 Low back pain; J43.9 Emphysema, unspecified; I11.0 Hypertensive heart disease with heart failure; E78.00 Pure hypercholesterolemia, unspecified; E78.5 Hyperlipidemia, unspecified; Z89.029 Acquired absence of unspecified finger(s); Z87.891 Personal history of nicotine dependence; E87.6 Hypokalemia; I71.4 Abdominal aortic aneurysm, without rupture; Z79.51 Long term (current) use of inhaled steroids; Z79.891 Long term (current) use of opiate analgesic; Z79.02 Long term (current) use of antithrombotics/antiplatelets; Z79.01 Long term (current) use of anticoagulants
CPT/HCPCS: 36415; 36416; 51702; 51798; 71045; 73720; 75635; 80048; 80053; 80202; 81003; 82550; 82962; 83605; 83880; 84145; 84484; 85025; 85610; 85730; 86850; 86900; 86920; 87040; 87635; 88307; 93005; 94640; 96372; 97110; 97161; 97167; 97530; 97535; 99215; A9577; J0743; J1644; J1650; J1815; J1940; J2270; J2405; J2543; J2704; J2710; J3010; J3370; J3490; J7030; J7626; P9016; Q9967

== ENCOUNTER 2020-12-07 14:09 | Outpatient (CLI) | payer MEDICARE, MEDICAID, SELFPAY | END 2020-12-07 14:10 | disposition home or self-care (01) | LOC: WOUND 14:18 | PROVIDERS: PCP Family Medicine; Visit Provider Thoracic Surgery (Cardiothoracic Vascular Surgery) | DX: Z89.612 Acquired absence of left leg above knee (principal) | CPT/HCPCS: 99212 ==

== ENCOUNTER 2020-12-14 13:40 | Outpatient (CLI) | payer MEDICARE, MEDICAID, SELFPAY | END 2020-12-14 13:41 | disposition home or self-care (01) | LOC: WOUND 13:42 | PROVIDERS: PCP Family Medicine; Visit Provider Thoracic Surgery (Cardiothoracic Vascular Surgery) | DX: Z89.612 Acquired absence of left leg above knee (principal) | CPT/HCPCS: 99212 ==

== ENCOUNTER 2020-12-21 14:12 | Outpatient (CLI) | payer MEDICARE, MEDICAID, SELFPAY | END 2020-12-21 14:13 | disposition home or self-care (01) | PROVIDERS: PCP Family Medicine; Visit Provider Thoracic Surgery (Cardiothoracic Vascular Surgery) | DX: Z09 Encounter for follow-up examination after completed treatment for conditions other than malignant neoplasm (principal); Z89.612 Acquired absence of left leg above knee | CPT/HCPCS: 99212 ==

== ENCOUNTER → 2021-02-17 09:18 | Outpatient (BNVA) | payer MEDICARE, MEDICAID, SELFPAY | PROVIDERS: PCP Family Medicine; Visit Provider Nurse Practitioner | DX: G89.29 Other chronic pain (principal); M54.16 Radiculopathy, lumbar region; M54.17 Radiculopathy, lumbosacral region; T78.40XA Allergy, unspecified, initial encounter; R21 Rash and other nonspecific skin eruption; F17.210 Nicotine dependence, cigarettes, uncomplicated; Z89.612 Acquired absence of left leg above knee; Z79.891 Long term (current) use of opiate analgesic; Z71.6 Tobacco abuse counseling | CPT/HCPCS: 99215 ==

== ENCOUNTER 2021-03-12 12:13 | Emergency (ER) | payer MEDICARE, MEDICAID, SELFPAY ==
[2021-03-12] VITALS (12 sets, daily range): BP systolic 88–146; BP diastolic 45–71; PULSE 85–94; RESP 16–18; TEMP 37.3; O2SAT 91–99; BMI 29.9
--- NOTE | 2021-03-12 12:27 | XRR_ITS ---
PROCEDURE INFORMATION: Exam: XR Chest Exam date and time: 03/12/2021 12:27 PM Age: 65 years old Clinical indication: Cough TECHNIQUE: Imaging protocol: XR of the chest. Views: 1 view. COMPARISON: CR XR chest 1V portable [id number] 11/24/2020 8:29 AM FINDINGS: Lungs: No pulmonary consolidation. Pleural spaces: No pleural effusion.; No pneumothorax. Heart/Mediastinum: The cardiac silhouette is unremarkable. No gross evidence of pneumomediastinum. Bones/joints: No gross fracture. XR/XR chest 1V portable [id number] IMPRESSION: No acute cardiopulmonary abnormality identified.
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
--- NOTE | 2021-03-12 12:35 | XRR_ITS ---
PROCEDURE INFORMATION: Exam: XR Left Wrist Exam date and time: 03/12/2021 12:35 PM Age: 65 years old Clinical indication: Left wrist pain. TECHNIQUE: Imaging protocol: XR Left wrist. Views: 3 or more views. COMPARISON: No relevant prior studies available. FINDINGS: The scapholunate and lunotriquetral intervals are maintained. No chondrocalcinosis is seen. No fracture, dislocation or subluxation. No periosteal reaction or supsicious bone lesion. XR/XR wrist LT min 3V* [id number] IMPRESSION: No acute fracture is seen.
--- NOTE | 2021-03-12 12:35 | XRR_ITS ---
PROCEDURE INFORMATION: Exam: XR Left Humerus Exam date and time: 03/12/2021 12:35 PM Age: 65 years old Clinical indication: Left upper arm; midshaft pain. TECHNIQUE: Imaging protocol: XR Left humerus. Views: 2 or more views. COMPARISON: CR (CHEST, ) 03/12/2021 12:31 PM FINDINGS: No fracture, dislocation or subluxation. No periosteal reaction or supsicious bone lesion. Mild degenerative changes are noted at the elbow. XR/[place] [id number] IMPRESSION: No acute fracture is seen.
--- NOTE | 2021-03-12 13:18 | W.ED.GENADLT ---
HPI - General Adult General: Chief complaint: COVID symptoms Stated complaint: PAIN & SWELLIN IN LUE/ LOW O2 SATS Time Seen by Provider: 03/12/21 12:16 History of Present Illness: HPI narrative: 65-year-old male with a history of hypertension, hyperlipidemia, COPD, left [id number] amputation secondary to ischemic limb who presents the emergency room with complaints of left elbow and left wrist pain x3 days. Patient was on his transporter going to the bedroom when he hit his left elbow. Since then, patient reports swelling and pain in the elbow and wrist. Patient denies LOC, anticoagulation, fall or other injuries at this time. No other focal complaints including chest pain shortness breath, palpitation, fever/chills, abdominal complaints or complaints. Onset:3 days ago Duration:3 days Location:home Severity:moderate Review of Systems Narrative: Constitutional: No fever, no chills. HEENT: No vision changes CV: No chest pain, no palpitations PULM: no cough, no dyspnea. GI: No abdominal pain, no N/V/D. : No dysuria MSKEL: +L elbow and L wrist pain SKIN: No new rashes, no lesions. NEURO: No headache, no focal weakness. 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 Emphysema (subcutaneous) (surgical) resulting from a procedure *Erroneous Entry* Emphysema lung Heart failure with preserved ejection fraction HTN (hypertension) Hypercholesterolemia Hyperlipidemia Long-term current use of opiate analgesic Neuropathy Pain management contract signed PVD (peripheral vascular disease) Sepsis Sepsis Status post amputation of finger Tobacco use disorder Surgical History (Updated 02/17/21 @ 09:48 by JANAE Rodríguez) History of back surgery S/P arterial stent (~2018) S/P knee surgery S/P rotator cuff repair (~06/12/14) Right / DR KIM Status post above-knee amputation of left lower extremity Family History Father Liver disease Mother Cancer Other CAD (coronary artery disease) Diabetes Stroke Social History (Reviewed 02/17/21 @ 09:21 by JORY Dillard Smoking and tobacco status: former smoker Alcohol intake: current Alcohol intake frequency: holidays/special occasions only Lives independently: Yes History of recent travel: No Physical Exam Narrative: EXAM NARRATIVE: Head: Atraumatic Eyes: PERRL, conjunctiva without injection ENT: Mucous membrane moist NECK: Supple, ROM intact LUNGS: + Wheezing bilaterally CV: RRR ABDOMEN: Soft, nontender in all quadrants, no guarding no rebound tenderness EXTREMITY: + Left elbow tenderness to palpation, left elbow swelling, 2+ radial pulses in the left hand, sensation intact in the radian/medial/ulnar distribution, patient able to perform OK/thumbs up/fist signs with the L hand SKIN: No rash or erythema NEURO: Awake and alert, no focal motor deficits PSYCH: Normal mood and affect Course Vital Signs: Vital signs: Vital Signs Temperature 99.2 F 03/12/21 12:17 Pulse Rate 85 03/12/21 14:00 Respiratory Rate 16 03/12/21 13:53 Blood Pressure 96/50 03/12/21 16:30 Pulse Oximetry 96 03/12/21 16:15 MDM - General Adult MDM Narrative: Medical decision making narrative: 65-year-old male with a history of hypertension hyperlipidemia COPD who presents to the emergency room with complaints of left elbow and wrist pain. Patient says that she he hit the wall 2 days ago and reports pain in the elbow and wrist. Since then, patient has used a sling without any improvement. On exam, patient has mild tenderness palpation of the left elbow and left wrist. Rest of neurovascular exam within normal limit. X-ray did not show any signs of focal findings. Patient received pain medication in the emergency room reports symptomatic improvement. I have given patient follow-up with her primary care provider for further evaluation of his symptoms. At the present time, I do not suspect acute fractures or other injuries. However, patient may need repeat x-ray in 1 week for further evaluation. Disposition: Discharge. Patient is given strict return precautions for any worsening pain, fever/chills, nausea vomiting, any new or concerning complaints. Lab Data: Labs: Lab Results 03/12/21 03/12/21 03/12/21 Range/Units 13:20 13:20 13:20 WBC 12.9 H (4.0-10.0) 10^3/ uL RBC 5.04 (4.1-5.3) 10^6/u L Hgb 15.0 (11.7-16.6) g/dL Hct 46.9 (42.0-52.0) % MCV 93.1 (80-94) fl MCH 29.8 (28.0-34.0) pg MCHC 32.0 (30.0-36.0) g/dL RDW 14.0 (12.1-15.1) % Plt Count 234 (130-400) 10^3/c mm MPV 9.8 (7.4-10.4) fL Neut % (Auto) 82.5 % Lymph % (Auto) 10.2 % [place] % (Auto) 6.2 % Eos % (Auto) 0.5 % Baso % (Auto) 0.3 % Neut # (Auto) 10.60 H (1.8-7.7) 10^3/u L Lymph # (Auto) 1.3 (0.8-4.8) 10^3/u L [place] # (Auto) 0.8 (0.2-0.9) 10^3/u L Eos # (Auto) 0.1 (0.0-0.8) 10^3/u L Baso # (Auto) 0.0 (0.0-0.1) 10^3/u L Nucleated RBC % (a uto) 0 % Nucleated RBCs # 0.0 /100WBC Sodium 140 (136-145) mmol/L Potassium 3.6 (3.5-5.1) mmol/L Chloride 98 (98-107) mmol/L Carbon Dioxide 32 H (22-29) mmol/L Anion Gap 13.6 (5-19) BUN 12 (8-23) mg/dL Creatinine 0.9 (0.7-1.2) mg/dL GFR Calculation 84.2 L (90-130) mL/min Glucose 110 (65-115) mg/dL Calculated Osmolal ity 290 (285-295) mOsm/k g Calcium 9.0 (8.5-10.5) mg/dL SARS-CoV-2 RNA (RT -PCR) (NOT DETECTED) SARS-CoV-2 Ag (Rap id) Negative (Negative) 03/12/21 Range/Units 13:20 WBC (4.0-10.0) 10^3/ uL RBC (4.1-5.3) 10^6/u L Hgb (11.7-16.6) g/dL Hct (42.0-52.0) % MCV (80-94) fl MCH (28.0-34.0) pg MCHC (30.0-36.0) g/dL RDW (12.1-15.1) % Plt Count (130-400) 10^3/c mm MPV (7.4-10.4) fL Neut % (Auto) % Lymph % (Auto) % [place] % (Auto) % Eos % (Auto) % Baso % (Auto) % Neut # (Auto) (1.8-7.7) 10^3/u L Lymph # (Auto) (0.8-4.8) 10^3/u L [place] # (Auto) (0.2-0.9) 10^3/u L Eos # (Auto) (0.0-0.8) 10^3/u L Baso # (Auto) (0.0-0.1) 10^3/u L Nucleated RBC % (a uto) % Nucleated RBCs # /100WBC Sodium (136-145) mmol/L Potassium (3.5-5.1) mmol/L Chloride (98-107) mmol/L Carbon Dioxide (22-29) mmol/L Anion Gap (5-19) BUN (8-23) mg/dL Creatinine (0.7-1.2) mg/dL GFR Calculation (90-130) mL/min Glucose (65-115) mg/dL Calculated Osmolal ity (285-295) mOsm/k g Calcium (8.5-10.5) mg/dL SARS-CoV-2 RNA (RT -PCR) Not detected (NOT DETECTED) SARS-CoV-2 Ag (Rap id) (Negative) Imaging Data^: Other Imaging: Radiologist's impression: [address] [id number] ReportSigned Patient: Jose Luis Kessler #: [id number]: [id number]#:[id number]/Sex: 65 / MADM Date: 03/12/21Loc: ERRoom/Bed:Attending Dr: Ordering Provider/Ordering MD: Shruthi Hylton MD Date of Service: 03/12/21 Procedure(s): XR wrist LT min 3V* [id number] Accession Number(s): [id number] Report Number: [id number] PROCEDURE INFORMATION: Exam: XR Left Wrist Exam date and time: 03/12/2021 12:35 PM Age: 65 years old Clinical indication: Left wrist pain. TECHNIQUE: Imaging protocol: XR Left wrist. Views: 3 or more views. COMPARISON: No relevant prior studies available. FINDINGS: The scapholunate and lunotriquetral intervals are maintained. No chondrocalcinosis is seen. No fracture, dislocation or subluxation. No periosteal reaction or supsicious bone lesion. XR/XR wrist LT min 3V* [id number] IMPRESSION: No acute fracture is seen. Dictated By:Miguel Gastelumigned By:Miguel Gastelumigned Date/Time:03/12/21 1529DD/ 1528 [facility] [place] [id number] ReportSigned Patient: Jose Luis Kessler #: [id number]: 1955t#:[id number]/Sex: 65 / MADM Date: 03/12/21Loc: ERRoom/Bed:Attending Dr: Ordering Provider/Ordering MD: Shruthi Hylton MD Date of Service: 03/12/21 Procedure(s): [place] [address] Accession Number(s): [id number] Report Number: [id number] PROCEDURE INFORMATION: Exam: XR Left Humerus Exam date and time: 03/12/2021 12:35 PM Age: 65 years old Clinical indication: Left upper arm; midshaft pain. TECHNIQUE: Imaging protocol: XR Left humerus. Views: 2 or more views. COMPARISON: CR (CHEST, ) 03/12/2021 12:31 PM FINDINGS: No fracture, dislocation or subluxation. No periosteal reaction or supsicious bone lesion. Mild degenerative changes are noted at the elbow. XR/[place] [id number] IMPRESSION: No acute fracture is seen. Dictated By:Miguel Gastelumigned By:Miguel Gastelumigned Date/Time:03/12/21 1529DD/ 27 Discharge Plan Discharge Patient Disposition: Home Clinical Impression: Arm pain, Elbow pain, Pain in wrist Condition: Stable Prescriptions: New acetaminophen 500 mg tablet 500 mg PO Q6H PRN (Reason: pain) 10 Days Qty: 40 RF: 0 No Action albuterol sulfate 90 mcg/actuation HFA aerosol inhaler 2 puff INHALATION Q6H PRN (Reason: Shortness Of Breath) RF: 0 celecoxib [Celebrex] 200 mg capsule 200 mg PO BEDTIME RF: 0 trazodone 100 mg tablet 200 mg PO BEDTIME RF: 0 prednisone 20 mg tablet 40 mg PO DAILY PRN (Reason: GOUT) RF: 0 hydroxyzine HCl 50 mg tablet 50 mg PO QID PRN (Reason: itching) Qty: 60 RF: 0 methylprednisolone [Medrol (Kannan)] 4 mg tablets,dose pack See Rx Instructions PO PER PKG DIR Qty: 21 RF: 0 gabapentin 800 mg tablet 800 mg PO TID Qty: 90 RF: 1 oxycodone 10 mg tablet 10 mg PO QID PRN (Reason: pain) 30 Days Qty: 120 RF: 0 oxycodone 10 mg tablet 10 mg PO QID PRN (Reason: pain) 30 Days Qty: 120 RF: 0 furosemide 40 mg tablet 40 mg PO DAILY Qty: 90 RF: 3 Repatha SureClick 140 mg/mL pen injector 140 mg SUBCUT Q14D Qty: 2 RF: 6 multivitamin Tablet 1 tab PO DAILY RF: 0 lisinopril-hydrochlorothiazide 10-12.5 mg tablet 0.5 tab PO DAILY RF: 0 Combivent Respimat 20-100 mcg/actuation mist 1 puff INHALATION BID RF: 0 Vitamin B-12 1 tab PO DAILY RF: 0 Vitamin D3 1 cap PO DAILY RF: 0 clopidogrel 75 mg tablet 75 mg PO DAILY@20 RF: 0 pentoxifylline 400 mg tablet extended release 400 mg PO TID@08,12,20 RF: 0 Eliquis 5 mg tablet 2.5 mg PO BID@08,20 RF: 0 Klor-Con 10 10 mEq tablet extended release 10 meq PO DAILY Qty: 30 RF: 0 Discharge Orders: Discharge ED (Routine); Ordered 03/12/21 Ordered By: Shruthi Hylton Referrals: Carla Santos MD [Primary Care Provider] - Discharge Diet: Advance as tolerated Discharge Activity: Resume usual activity Patient Instructions: Elbow Sprain (ED) Activity Restrictions/Additional Instructions: Please follow-up with your primary care provider for evaluation of your symptoms. Come back to the emergency room she have any fever or chills, worsening pain, or any new or concerning issues. Coding Level of Care Code ED [employer] Chip Processing Supervisor for Imtiaz Liang
[2021-03-12] MEDS: acetaminophen 500 mg Tablet PO (13:23)
[2021-03-12] MEDS: predniSONE 20 mg Tablet 60 MG PO (13:30)
[2021-03-12] MEDS: ipratropium-albuterol 3 mL Neb INHALATION (13:52)
[2021-03-12 14:02] LABS: Basophils % 0.3 %; Eosinophils # 0.1 10^3/uL (0.0-0.8); Eosinophils % 0.5 %; Hematocrit 46.9 % (42.0-52.0); Lymphocytes # 1.3 10^3/uL (0.8-4.8); Lymphocytes % 10.2 %; Mean Corpuscular Hemoglobin 29.8 pg (28.0-34.0); Mean Corpuscular Volume 93.1 fl (80-94); Mean Platelet Volume 9.8 fL (7.4-10.4); Monocytes # 0.8 10^3/uL (0.2-0.9); Monocytes % 6.2 %; Neutrophils % 82.5 %; Nucleated Red Blood Cells % 0 %; Platelet Count 234 10^3/cmm (130-400); Red Blood Count 5.04 10^6/uL (4.1-5.3); White Blood Count 12.9 10^3/uL (4.0-10.0)
[2021-03-12 14:45] LABS: Anion Gap 13.6 (5-19); Blood Urea Nitrogen 12 mg/dL (8-23); Carbon Dioxide 32 mmol/L (22-29); Chloride 98 mmol/L (98-107); Glomerular Filtration Rate 84.2 mL/min (90-130); Glucose 110 mg/dL (65-115); Osmolality Calculated 290 mOsm/kg (285-295); Potassium 3.6 mmol/L (3.5-5.1); Sodium 140 mmol/L (136-145)
[2021-03-12 15:00] LABS: SARS Covid-2 Antigen Negative (Negative)
[2021-03-13 18:28] LABS: Quest SARS-CoV-2 RNA NOT DETECTED (NOT DETECTED)
--- NOTE | 2021-03-14 08:56 | DCPLANNER ---
Addendum entered by Aimee Nicholas 03/15/21 10:28: Ortho clinic called casey saw operator stating that patient will need to followup with his primary care physician. Clinic will call patient and inform patient of this. Original Note: manager community outreach had message to schedule a follow up appointment for patient with ortho. manager community outreach called the ortho clinic, spoke with Fela, gave clinic patients information. manager community outreach was told that patients information would be printed and reviewed. Clinic will call patient with appointment information.
== END 2021-03-12 17:29 | disposition home or self-care (01) ==
PROVIDERS: Emergency Provider Emergency Medicine; PCP Family Medicine
DX: M79.602 Pain in left arm (principal); M25.522 Pain in left elbow; M25.532 Pain in left wrist; Z79.01 Long term (current) use of anticoagulants; Z79.02 Long term (current) use of antithrombotics/antiplatelets; J43.9 Emphysema, unspecified; I10 Essential (primary) hypertension; E78.5 Hyperlipidemia, unspecified; Z87.891 Personal history of nicotine dependence; Z89.612 Acquired absence of left leg above knee; Z20.822 Contact with and (suspected) exposure to COVID-19
CPT/HCPCS: 29240; 71045; 73060; 73070; 73110; 80048; 85025; 87426; 87635; 94640; 99284; J7512

== ENCOUNTER → 2021-04-14 10:14 | Outpatient (BNVA) | payer MEDICARE, MEDICAID, SELFPAY | PROVIDERS: PCP Family Medicine; Visit Provider Anesthesiology | DX: G89.29 Other chronic pain (principal); M54.16 Radiculopathy, lumbar region; M54.17 Radiculopathy, lumbosacral region; Z89.612 Acquired absence of left leg above knee; I10 Essential (primary) hypertension; F17.210 Nicotine dependence, cigarettes, uncomplicated; Z79.891 Long term (current) use of opiate analgesic | CPT/HCPCS: 99213 ==

== ENCOUNTER 2021-09-13 12:35 | Outpatient (CLI) | payer MEDICARE, MEDICAID, SELFPAY ==
--- NOTE | 2021-09-13 12:47 | XR_ITS ---
WS: [id number] Lumbar spine, 5 views including obliques, 09/13/2021 Clinical Data: LUMBOSACRAL RADICULOPATHY Comparison: Lateral lumbar spine, 08/25/2010. Findings: No compression fractures or subluxation is seen. There is disc narrowing at L4-L5 and L5-S1. Anterior osteophytes are prominent at L3-L5. The transverse processes and SI joints are normal. The oblique films show no spondylolysis. XR/XR lumbar spine min 4V 80990 Impression: 1. Degenerative disc narrowing at L4-L5 and L5-S1. 2. Anterior osteophytes at L3-L5.
== END 2021-09-13 12:36 | disposition home or self-care (01) ==
LOC: RAD 12:37
PROVIDERS: PCP Family Medicine; Visit Provider Nurse Practitioner Family
DX: M54.17 Radiculopathy, lumbosacral region (principal); M25.78 Osteophyte, vertebrae
CPT/HCPCS: 72110

== ENCOUNTER 2021-09-22 11:35 | Outpatient (CLI) | payer MEDICARE, MEDICAID, SELFPAY ==
--- NOTE | 2021-09-22 11:47 | MR_ITS ---
WS: [id number] MRI LUMBAR SPINE WITH AND WITHOUT CONTRAST. HISTORY: DDD/LUMBAR BACK SYNDROME, pain down RIGHT leg. COMPARISON: 08/25/2010 TECHNIQUE: Sagittal and axial multisequence imaging is submitted. Sagittal and axial T1 fat sat sequences post-MultiHance 20 cc IV. Mild anterior wedging of T7. Straightening of the normal lumbar lordosis. Disc spaces are mildly narrowed and desiccated. There is a very small amount of reactive marrow edema at the L5-S1 disc space. No fracture of the lumbar spine. Conus terminates normally at L1. L1-L2: Normal. L2-L3: Normal. L3-L4: Mild annular disc bulging with mild encroachment upon the ventral thecal sac and the traversin g L4 nerve roots. No high-grade stenosis. L4-L5: Moderate annular disc bulging. Ventral effacement of the ventral thecal sac. There is addition al soft tissue extending caudad to the L5 vertebral body contacting and deforming the thecal sac and displacing the traversing LEFT L5 nerve root posteriorly. Soft tissue enhances consistent with gliosi s. Small LEFT hemilaminectomy defect. Disc bulging into the foramina bilaterally with slightly greate r contact and displacement upon the RIGHT L4 nerve root. There is a focal disc protrusion contacting the RIGHT exiting L4 nerve root. There is at least mild bilateral foraminal stenosis. L5-S1: Mild disc bulging. Posterior laminectomy defect. There is increased soft tissue completely eff acing fat in the LEFT foramen similar to the prior examination. Bilateral facet joint arthritis. No discitis or osteomyelitis. Again noted is the granulation tissue along the anterior, LEFT lateral posterior thecal sac which is similar to the prior study. There is enhancement in the soft tissues al avelino the LEFT subarticular recess at L4-5. Mild granulation tissue. LEFT renal cyst. MR/MR lumbar spine wo/w con [id number] IMPRESSION: 1. Postoperative laminectomy defects on the LEFT at L4-5 and L5-S1. 2. Mild disc contact on the traversing L5 nerve roots 3. Additional disc protrusion in the RIGHT L4-5 foramen contacting and displac ing the RIGHT exiting L4 nerve root. 4. Moderate LEFT foraminal stenosis due to disc protrusion and osteophyte and facet disease. Similar to the prior study.
[2021-09-22] MEDS: gadobenate dimeglumine 20 mL vial IV (13:10)
== END 2021-09-22 11:36 | disposition home or self-care (01) ==
PROVIDERS: PCP Family Medicine; Visit Provider General Practice
DX: M54.16 Radiculopathy, lumbar region (principal); M51.36 Other intervertebral disc degeneration, lumbar region; M96.1 Postlaminectomy syndrome, not elsewhere classified; M51.26 Other intervertebral disc displacement, lumbar region; M48.061 Spinal stenosis, lumbar region without neurogenic claudication
CPT/HCPCS: 72158

== ENCOUNTER 2021-09-23 10:53 | Outpatient (CLI) | payer MEDICARE, MEDICAID, SELFPAY | END 2021-09-23 10:54 | disposition home or self-care (01) | LOC: RAD 09-24 12:48 | PROVIDERS: PCP Family Medicine; Visit Provider Internal Medicine | DX: I73.9 Peripheral vascular disease, unspecified (principal); Z89.612 Acquired absence of left leg above knee; E78.00 Pure hypercholesterolemia, unspecified; I10 Essential (primary) hypertension; F17.210 Nicotine dependence, cigarettes, uncomplicated | CPT/HCPCS: 99214 ==

== ENCOUNTER → 2021-09-30 09:59 | Outpatient (BNVA) | payer MEDICARE, MEDICAID, SELFPAY | PROVIDERS: PCP Family Medicine; Visit Provider Surgery | DX: I96 Gangrene, not elsewhere classified (principal); L97.512 Non-pressure chronic ulcer of other part of right foot with fat layer exposed; F17.210 Nicotine dependence, cigarettes, uncomplicated | CPT/HCPCS: 11043; 99213 ==

== ENCOUNTER → 2021-10-21 11:44 | Outpatient (BNVA) | payer MEDICARE, MEDICAID, SELFPAY | PROVIDERS: PCP Family Medicine; Visit Provider Surgery | DX: I73.9 Peripheral vascular disease, unspecified (principal); L97.512 Non-pressure chronic ulcer of other part of right foot with fat layer exposed; F17.210 Nicotine dependence, cigarettes, uncomplicated | CPT/HCPCS: 11042 ==

== ENCOUNTER → 2021-10-28 13:28 | Outpatient (BNVA) | payer MEDICARE, MEDICAID, SELFPAY | PROVIDERS: PCP Family Medicine; Visit Provider Nurse Practitioner Family | DX: I73.9 Peripheral vascular disease, unspecified (principal); F17.210 Nicotine dependence, cigarettes, uncomplicated; L97.512 Non-pressure chronic ulcer of other part of right foot with fat layer exposed | CPT/HCPCS: 11042 ==

== ENCOUNTER → 2021-11-04 13:22 | Outpatient (BNVA) | payer MEDICARE, MEDICAID, SELFPAY | PROVIDERS: PCP Family Medicine; Visit Provider Surgery | DX: I73.9 Peripheral vascular disease, unspecified (principal); L97.512 Non-pressure chronic ulcer of other part of right foot with fat layer exposed; F17.210 Nicotine dependence, cigarettes, uncomplicated | CPT/HCPCS: 11043 ==

== ENCOUNTER 2021-11-13 11:38 | Observation (INO) | payer MEDICARE, MEDICAID, SELFPAY ==
[2021-11-13] VITALS (11 sets, daily range): BP systolic 116–160; BP diastolic 67–106; PULSE 76–104; RESP 15–30; TEMP 36.6–36.7; O2SAT 94–100; BMI 28.0; BMI 28.4
--- NOTE | 2021-11-13 11:55 | XRR_ITS ---
PROCEDURE INFORMATION: Exam: XR Chest Exam date and time: 11/13/2021 12:00 PM Age: 66 years old Clinical indication: Pain; Chest pressure; Additional info: Cp TECHNIQUE: Imaging protocol: XR of the chest. Views: 1 view. Other technique: Frontal portable upright view of the chest. COMPARISON: CR XR chest 1V portable [id number] 03/12/2021 12:31 PM FINDINGS: Tubes, catheters and devices: EKG leads are present overlying the chest. Lungs: The lungs are clear bilaterally. The pulmonary vasculature is normal. Pleural spaces: No pleural effusion. No pneumothorax. Heart/Mediastinum: The heart is normal in size and contour. Mediastinum: Stable. Bones/joints: Stable. XR/XR chest 1V portable [id number] IMPRESSION: No acute cardiopulmonary abnormality identified.
--- NOTE | 2021-11-13 11:56 | ECG_ITS ---
[facility] Test Date: 2021-11-13 Pat Name: Jose Luis Kessler Department: Room: Gender: Male Radiography Technician: : 1955 Requested By: Kailash Hubbard Order Number: [id number] Arizmendi MD: Evon Abreu M.D. Measurements Intervals [place] Rate: 78 P: 72 ME: 146 QRS: 16 QRSD: 104 T: 55 QT: 367 QTc: 419 Interpretive Statements SINUS RHYTHM Compared to ECG 11/19/2020 15:12:18 Sinus tachycardia no longer present Intraventricular conduction delay no longer present Electronically Signed On 11-13-2021 13:23:34 CDT by Evon Abreu M.D. [id number]
--- NOTE | 2021-11-13 11:56 | ED_ITS ---
HPI - Chest Pain General: Chief Complaint: Chest Pain Stated Complaint: CHEST PAIN Time Seen by Provider: 11/13/21 11:40 History of Present Illness: 66-year-old with history of left lower extremity amputation presents with chest pain. States it started around 10 AM. States it is achy and pressure-like. Does not radiate. Denies any radiation to back specifically. Denies any lower extremity pain or swelling. Denies any fever cough or chills. Denies nausea or vomiting. Review of Systems Narrative: - CONSTITUTIONAL: Denies weight loss, fever and chills. - HEENT: Denies changes in vision and hearing. - RESPIRATORY: Denies SOB and cough. - CV: As above - GI: Denies abdominal pain, nausea, vomiting and diarrhea. - : Denies dysuria and urinary frequency. - MSK: Denies myalgia and joint pain. - SKIN: Denies rash and pruritus. - NEUROLOGICAL: Denies headache, weakness, numbness and syncope. 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 Emphysema (subcutaneous) (surgical) resulting from a procedure *Erroneous Entry* Emphysema lung Heart failure with preserved ejection fraction HTN (hypertension) Hypercholesterolemia Hyperlipidemia Long-term current use of opiate analgesic Neuropathy Pain management contract signed PVD (peripheral vascular disease) Sepsis Sepsis Status post amputation of finger Tobacco use disorder Surgical History History of back surgery S/P arterial stent (~2018) S/P knee surgery S/P rotator cuff repair (~06/12/14) Right / DR KIM Status post above-knee amputation of left lower extremity Family History Father Liver disease Mother Cancer Other CAD (coronary artery disease) Diabetes Stroke Social History Smoking and tobacco status: current every day smoker (1 pck day) Alcohol intake: current Alcohol intake frequency: holidays/special occasions only Lives independently: Yes History of recent travel: No Physical Exam Narrative: EXAM NARRATIVE: - GENERAL: Alert and oriented x 3. No acute distress. Well-nourished. - EYES: EOMI. Anicteric. - HENT: Atraumatic, no C-spine tenderness. Moist mucous membranes. No scleral icterus. No cervical lymphadenopathy. - LUNGS: Clear to auscultation bilaterally. No accessory muscle use. Equal lung sounds bilaterally. No respiratory distress. - CARDIOVASCULAR: Regular rate and rhythm. No murmur. No JVD. - ABDOMEN: Soft, non-tender and non-distended. Negative CVA tenderness bilaterally, no rebound or guarding, negative Louie sign. No palpable masses. - EXTREMITIES: Left leg amputation. No edema. Non-tender. - SKIN: No rashes or lesions. Warm. - NEUROLOGIC: No meningismus or focal neurological deficits. CN II-XII grossly intact. - PSYCHIATRIC: Cooperative. Appropriate mood and affect. Course Vital Signs: Vital signs: Vital Signs Temperature 97.8 F 11/13/21 11:44 Pulse Rate 79 11/13/21 11:44 Respiratory Rate 30 H 11/13/21 11:44 Blood Pressure 130/78 11/13/21 11:44 Pulse Oximetry 100 11/13/21 11:44 MDM - Chest Pain Medical Decision Making 66-year-old presents with chest pain. Physical exam markable. He has a history of peripheral vascular disease. EKG and troponins unremarkable. D-dimer is elevated but CT does not reveal any sign of PE. Remainder of lab work unremarkable. Patient's family chest pain-free after nitro. Remainder of lab work and imaging reviewed. Discussed with hospitalist and they agreed patient would benefit from admission. Patient admitted in stable condition. Further evaluation management per hospitalist team. Lab Data : 11/13/21 11:45 11/13/21 11:45 Radiology Impressions Chest X-Ray 11/13/21 11:55 IMPRESSION: No acute cardiopulmonary abnormality identified. Chest CTA 11/13/21 12:18 IMPRESSION: 1. No pulmonary artery embolism identified. 2. No thoracic aortic aneurysm or dissection identified. 3. Small pericardial effusion. 4. Coronary atherosclerosis. Laboratory Results WBC 10.3 10^3/uL (4.0-10.0) H 11/13/21 11:45 RBC 4.98 10^6/uL (4.1-5.3) 11/13/21 11:45 Hgb 15.0 g/dL (11.7-16.6) 11/13/21 11:45 Hct 46.1 % (42.0-52.0) 11/13/21 11:45 MCV 92.6 fl (80-94) 11/13/21 11:45 MCH 30.1 pg (28.0-34.0) 11/13/21 11:45 MCHC 32.5 g/dL (30.0-36.0) 11/13/21 11:45 RDW 14.3 % (12.1-15.1) 11/13/21 11:45 Plt Count 226 10^3/cmm (130-400) 11/13/21 11:45 MPV 10.1 fL (7.4-10.4) 11/13/21 11:45 Neut % (Auto) 75.8 % 11/13/21 11:45 Lymph % (Auto) 17.0 % 11/13/21 11:45 [place] % (Auto) 4.1 % 11/13/21 11:45 Eos % (Auto) 2.4 % 11/13/21 11:45 Baso % (Auto) 0.4 % 11/13/21 11:45 Neut # (Auto) 7.78 10^3/uL (1.8-7.7) H 11/13/21 11:45 Lymph # (Auto) 1.7 10^3/uL (0.8-4.8) 11/13/21 11:45 [place] # (Auto) 0.4 10^3/uL (0.2-0.9) 11/13/21 11:45 Eos # (Auto) 0.3 10^3/uL (0.0-0.8) 11/13/21 11:45 Baso # (Auto) 0.0 10^3/uL (0.0-0.1) 11/13/21 11:45 Nucleated RBC % (auto) 0 % 11/13/21 11:45 Nucleated RBCs # 0.0 /100WBC 11/13/21 11:45 D-Dimer 1.29 ug/mIFEU (0-0.59) H 11/13/21 11:45 Sodium 139 mmol/L (136-145) 11/13/21 11:45 Potassium 4.4 mmol/L (3.5-5.1) 11/13/21 11:45 Chloride 97 mmol/L (98-107) L 11/13/21 11:45 Carbon Dioxide 29 mmol/L (22-29) 11/13/21 11:45 Anion Gap 17.4 (5-19) 11/13/21 11:45 BUN 33 mg/dL (8-23) H 11/13/21 11:45 Creatinine 1.3 mg/dL (0.7-1.2) H 11/13/21 11:45 GFR Calculation 54.9 mL/min (90-130) L 11/13/21 11:45 Glucose 106 mg/dL (65-115) 11/13/21 11:45 Calculated Osmolality 296 mOsm/kg (285-295) H 11/13/21 11:45 Calcium 10.3 mg/dL (8.5-10.5) 11/13/21 11:45 Total Bilirubin 0.2 mg/dL (0.15-1.2) 11/13/21 11:45 AST 11 U/L (0-40) 11/13/21 11:45 ALT 9 U/L (0-41) 11/13/21 11:45 Alkaline Phosphatase 90 IU/L (40-130) 11/13/21 11:45 Troponin T Baseline 12 ng/L (0-15) 11/13/21 11:45 Troponin T 120 Minute 11.28 ng/L (0-15) 11/13/21 13:40 NT-Pro-B Natriuret Pep 42 pg/mL (0-125) 11/13/21 11:45 Total Protein 7.2 g/dL (6.6-8.7) 11/13/21 11:45 Albumin 4.2 g/dL (3.5-5.2) 11/13/21 11:45 Globulin 3.0 g/dL (1.3-4.6) 11/13/21 11:45 Lipase 19 U/L (13-60) 11/13/21 11:45 SARS-CoV-2 Ag (Rapid) Negative (Negative) 11/13/21 13:07 EKG Data EKG 1: Other EKG comments: Normal sinus rhythm, rate of 78, no sign of acute ischemia or other acute abnormality. Discharge Plan Discharge Condition: Stable Prescriptions: No Action oxycodone 10 mg tablet 10 mg PO QID PRN (Reason: pain) 30 Days Qty: 120 0RF Rx Instructions: fill on or after 05/18/21 gabapentin 800 mg tablet 800 mg PO TID Qty: 90 1RF tamsulosin [Flomax] 0.4 mg capsule 0.4 mg PO DAILY 0RF fluticasone propion-salmeterol 250-50 mcg/dose blister with device 1 inh inhalation BID 0RF albuterol sulfate 90 mcg/actuation HFA aerosol inhaler 2 puff INHALATION Q6H PRN (Reason: Shortness Of Breath) 0RF celecoxib [Celebrex] 200 mg capsule 200 mg PO BEDTIME 0RF trazodone 100 mg tablet 200 mg PO BEDTIME 0RF prednisone 20 mg tablet 40 mg PO DAILY PRN (Reason: GOUT) 0RF Rx Instructions: FOR 7 DAYS hydroxyzine HCl 50 mg tablet 50 mg PO QID PRN (Reason: itching) Qty: 60 0RF furosemide 40 mg tablet 40 mg PO DAILY Qty: 90 3RF Repatha SureClick 140 mg/mL pen injector 140 mg SUBCUT Q14D Qty: 2 12RF Rx Instructions: On Saturdays clopidogrel 75 mg tablet 75 mg PO DIRECTED Qty: 90 3RF Rx Instructions: Take one tab daily at 8:00pm multivitamin Tablet 1 tab PO DAILY 0RF cyanocobalamin (vitamin B-12) [Vitamin B-12] 500 mcg Tablet 500 mcg PO DAILY Qty: 0 0RF lisinopril-hydrochlorothiazide 10-12.5 mg tablet 0.5 tab PO BEDTIME 0RF cholecalciferol (vitamin D3) [Vitamin D3] 25 mcg (1,000 unit) Capsule 25 mcg PO DAILY Qty: 0 0RF Combivent Respimat 20-100 mcg/actuation mist 1 puff INHALATION BID 0RF ibuprofen 200 mg Tablet 800 mg PO DAILY PRN (Reason: Pain) 0RF magnesium 250 mg Tablet 250 mg PO DAILY 0RF Referrals: Carla Santos MD [Physician] - Coding Level of Care Code ED Loan Interviewer Mortgage for [facility]
[2021-11-13] MEDS: aspirin 81 mg Chew Tablet 324 MG PO (12:06)
[2021-11-13 12:07] LABS: Basophils % 0.4 %; Eosinophils # 0.3 10^3/uL (0.0-0.8); Eosinophils % 2.4 %; Hematocrit 46.1 % (42.0-52.0); Lymphocytes # 1.7 10^3/uL (0.8-4.8); Mean Corpuscular HGB Conc 32.5 g/dL (30.0-36.0); Mean Corpuscular Hemoglobin 30.1 pg (28.0-34.0); Mean Corpuscular Volume 92.6 fl (80-94); Mean Platelet Volume 10.1 fL (7.4-10.4); Monocytes # 0.4 10^3/uL (0.2-0.9); Monocytes % 4.1 %; Neutrophils # 7.78 10^3/uL (1.8-7.7); Neutrophils % 75.8 %; Nucleated Red Blood Cells % 0 %; Platelet Count 226 10^3/cmm (130-400); Red Blood Count 4.98 10^6/uL (4.1-5.3); Red Cell Distribution Width 14.3 % (12.1-15.1); White Blood Count 10.3 10^3/uL (4.0-10.0)
[2021-11-13 12:14] LABS: D Dimer 1.29 ug/mIFEU (0-0.59)
--- NOTE | 2021-11-13 12:18 | CTR_ITS ---
PROCEDURE INFORMATION: Exam: CTA Chest With Contrast Exam date and time: 11/13/2021 12:57 PM Age: 66 years old Clinical indication: Pain; Chest pressure; Additional info: Pe TECHNIQUE: Imaging protocol: Computed tomographic angiography of the chest with contrast. 3D rendering (Not supervised by radiologist): MIP reconstructed images were created by the technologist. Radiation optimization: All CT scans at this facility use at least one of these dose optimization techniques: automated exposure control; mA and/or kV adjustment per patient size (includes targeted exams where dose is matched to clinical indication); or iterative reconstruction. Contrast material: VISIPAQUE 320; Contrast volume: 75 ml; Contrast route: INTRAVENOUS (IV); COMPARISON: CTA Chest-Pulmonary Emb [id number] 08/20/2015 3:44 PM RADIATION DOSE METRICS: Total DLP (mGy-cm): 626 FINDINGS: Pulmonary arteries: No pulmonary artery embolism identified. Aorta: Mild aortic arch, branch, and descending thoracic aortic atherosclerotic calcification without ectasia. Trachea: Mild upper tracheal intraluminal mucous. Lungs: Bibasilar mild pulmonary subsegmental atelectasis is present. Pleural spaces: No pneumothorax. No pleural effusion. Heart: Small pericardial effusion. Dense mitral annular calcification is present. LAD, LCx and RCA calcified coronary atherosclerosis. Lymph nodes: No enlarged lymph nodes. Bones/joints: Thoracic spine vertebral body marginal osteophytes are noted at multiple levels. Soft tissues: Unremarkable. CT/CT angio chest PE protcl [id number] IMPRESSION: 1. No pulmonary artery embolism identified. 2. No thoracic aortic aneurysm or dissection identified. 3. Small pericardial effusion. 4. Coronary atherosclerosis.
[2021-11-13 12:25] LABS: Troponin(5th) Baseline 12 ng/L (0-15)
[2021-11-13 12:35] LABS: Alanine Aminotransferase 9 U/L (0-41); Albumin Level 4.2 g/dL (3.5-5.2); Alkaline Phosphatase 90 IU/L (40-130); Anion Gap 17.4 (5-19); Aspartate Amino Transferase 11 U/L (0-40); Blood Urea Nitrogen 33 mg/dL (8-23); Calcium 10.3 mg/dL (8.5-10.5); Carbon Dioxide 29 mmol/L (22-29); Chloride 97 mmol/L (98-107); Glomerular Filtration Rate 54.9 mL/min (90-130); Glucose 106 mg/dL (65-115); Lipase 19 U/L (13-60); NT Pro B Type Natriuretic Pept 42 pg/mL (0-125); Osmolality Calculated 296 mOsm/kg (285-295); Potassium 4.4 mmol/L (3.5-5.1); Sodium 139 mmol/L (136-145); Total Bilirubin 0.2 mg/dL (0.15-1.2); Total Protein 7.2 g/dL (6.6-8.7)
[2021-11-13] MEDS: iodixanol 320 mg/mL 100mL Btl IV (12:55)
--- NOTE | 2021-11-13 13:04 | PC.NURSE ---
PT placed on continuous NIBP, SpO2, and CM
[2021-11-13 13:41] LABS: SARS Covid-2 Antigen Negative (Negative)
--- NOTE | 2021-11-13 13:56 | ECG_ITS ---
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 Measurements Intervals Kelly Rate: 76 P: 60 MN: 142 QRS: 33 QRSD: 108 T: 67 QT: 371 QTc: 419 Interpretive Statements SINUS RHYTHM Compared to ECG 11/13/2021 11:49:28 No significant changes Electronically Signed On 11-14-2021 17:44:01 CDT by Evon Abreu M.D. [id number]
[2021-11-13 14:07] LABS: Troponin 5 2HR 11.28 ng/L (0-15)
[2021-11-13 14:48] LABS: Troponin 5 2HR Delta -0.72 ABS# (0-10)
--- NOTE | 2021-11-13 15:34 | USCV_ITS ---
Checo Jose Luis Age: 66 Gender: M : 1955 Exam Date: 11/13/2021 23:51 Ordering Phys: Albert Mckay MD Technologist: Marino Nelson Exam Location: [facility] – [place] Indication: chest pain BP: 116 / 67 HR: 83 Rhythm: Sinus Technical Quality: Adequate MEASUREMENTS (Male / Female) Normal Values 2D ECHO LV Diastolic Diameter PLAX 3.6 cm 4.2 - 5.9 / 3.9 - 5.3 cm LV Systolic Diameter PLAX 2.4 cm IVS Diastolic Thickness 1.2 cm 0.6 - 1.0 / 0.6 - 0.9 cm IVS Systolic Thickness 1.3 cm LVPW Diastolic Thickness 1.9 cm 0.6 - 1.0 / 0.6 - 0.9 cm LVPW Systolic Thickness 2.3 cm LV Ejection Fraction 2D Teich 62.8 % LV Ejection Fraction MOD 2C 51.3 % LV Ejection Fraction 2C AL 51.2 % LA Diameter 3.1 cm LA Width 4.6 cm LA Height 4.2 cm Aorta at Sinotubular Diameter 1.9 cm IVC Diameter 1.5 cm M-MODE Aortic Annulus Diameter 2.2 cm LA Ao Ratio MM 1.5 MV E Point Septal Separation 1.2 cm DOPPLER AV Peak Velocity 126.8 cm/s MV Area PHT 2.7 cm squared Mitral E to A Ratio 0.9 MV E' Velocity 56.5 cm/s Mitral E to MV E' Ratio 15.0 Mitral E to LV E' Lateral Ratio 16.9 Mitral E to LV E' Septal Ratio 13.7 Right Atrial Pressure 3.0 mmHg PV Peak Velocity 94.0 cm/s FINDINGS Left Ventricle Normal left ventricular size, systolic function with no diagnostic regional wall motion abnormalities. Left ventricular ejection fraction is estimated at 60-65 %. Normal diastolic function. Right Ventricle Normal right ventricular size and systolic function. Normal right ventricular systolic pressure. Right Atrium Right atrium not well visualized. Right atrial pressure estimated at 3 mmHg. Left Atrium Normal left atrial size. Mitral Valve Mitral annular calcification. Thickened mitral valve. No mitral valve stenosis. No mitral valve regurgitation. Aortic Valve Aortic valve not well visualized. No aortic valve stenosis. No aortic valve regurgitation. Tricuspid Valve Tricuspid valve not well visualized. Pulmonic Valve Pulmonic valve not well visualized. No pulmonary valve stenosis. Pericardium No pericardial effusion. Aorta Aorta not well visualized. IVC Normal-sized inferior vena cava with greater than 50% respiratory variation. CONCLUSIONS 1. Normal left ventricular size, systolic function with no diagnostic regional wall motion abnormalities. Left ventricular ejection fraction is estimated at 60-65 %. Normal diastolic function. 2. Normal right ventricular systolic pressure. 3. No significant change when compared to prior study dated 06/11/2020. Evon Abreu MD (Electronically Signed) Final Date: 14 Nov 2021 14:50 S
--- NOTE | 2021-11-13 15:35 | P.HP_ITS ---
Providers/Chief Complaint Admitting Physician: Albert Mckay MD Chief Complaint: CHEST PAIN History of Present Illness Jose Luis Kessler is a 66 year male with past medical history of COPD, hypertension , heart failure with preservation fraction, PVD s/p left AKA came in with C/O once episode of lt sided as well substernal chest pain started today around 10 am at home lasted around 15-20 mins and then resolved.Patient never had any similar chest pain in the past,this was the 1st time he had any chest pain like this. when I examined the patient patient was chest pain free,denied any nausea,dizziness,diaphoresis,palpitation. Upon arrival in the ER he was worked up for above mention complain Pertinent Imaging studies : CTA Chest : No pulmonary artery embolism.: Bibasilar mild pulmonary subsegmental atelectasis is present.Pleural spaces: No pneumothorax. No pleural effusion.Heart: Small pericardial effusion. Dense mitral annular calcification is present. LAD, LCx and RCA calcified coronary atherosclerosis. EKG : Sinus ?RHYTHM Pertinent Labs : WBC: 10.3 , H&H : 15/46 , PLT : 226 Serum Na: 139 , k: 4.4 , BUN/SCR : 33/1.3 , Troponin: 12, 11, Pro BNP: 42 Rapid COVID :Negative Review of Systems General: Reports: 10 or more systems reviewed and unremarkable except in HPI and below Const: Denies: fever(s), chills, body aches, change in appetite or diaphoresis Card: Denies: palpitations, edema, swelling of feet/ankles or orthopnea Resp: Denies: dyspnea, productive cough, wheezing or pain on inspiration GI: Denies: abdominal pain, nausea, vomiting, diarrhea or constipation : Denies: flank pain or difficulty urinating Musc: Denies: back pain, extremity pain or extremity swelling Neuro: Denies: headache(s) or confusion Medications/Allergies Home Medications Medication Instructions Recorded Confirmed Last Taken Type albuterol sulfate 90 mcg/actuation 2 puff INHALATION Q6H PRN 07/15/19 11/13/21 10/31/20 21:00 History aerosol inhaler celecoxib 200 mg capsule (Celebrex) 200 mg PO BEDTIME cap 07/15/19 11/13/21 11/12/21 History trazodone 100 mg tablet 200 mg PO BEDTIME tab 07/15/19 11/13/2111/12/22 History prednisone 20 mg tablet 40 mg PO DAILY PRN 06/01/20 11/13/21 10/31/20 21:00 History furosemide 40 mg tablet 40 mg PO DAILY #90 tab 06/04/20 11/13/21 11/13/21 Rx cholecalciferol (vitamin D3) 25 25 mcg PO DAILY #0 11/19/20 11/13/21 11/13/21 History mcg (1,000 unit) capsule (Vitamin D3) cyanocobalamin (vitamin B-12) 500 500 mcg PO DAILY #0 11/19/20 11/13/21 11/12/21 History mcg tablet (Vitamin B-12) ipratropium 20 mcg-albuterol 100 1 puff INHALATION BID 11/19/20 11/13/21 11/13/21 History mcg/actuation mist for inhalation (Combivent Respimat) lisinopril 10 0.5 tab PO BEDTIME 11/19/20 11/13/21 11/12/21 History mg-hydrochlorothiazide 12.5 mg tablet multivitamin 1 tab PO DAILY 11/19/20 11/13/21 11/13/21 History hydroxyzine HCl 50 mg tablet 50 mg PO QID PRN #60 tab 02/17/21 11/13/21 Unknown Rx gabapentin 800 mg tablet 800 mg PO TID #90 tab 04/14/21 11/13/21 11/13/21 Rx oxycodone 10 mg tablet 10 mg PO QID PRN 30 Days #120 tab 04/14/21 11/13/21 Unknown Rx evolocumab 140 mg/mL subcutaneous 140 mg SUBCUT Q14D #2 ml 08/17/21 11/13/21 Unknown Rx pen injector (Prakash Kelly) fluticasone 250 mcg-salmeterol 50 1 inh INHALATION BID 09/23/21 11/13/21 History mcg/dose blistr powdr for inhalation tamsulosin 0.4 mg capsule (Flomax) 0.4 mg PO DAILY 09/23/21 11/13/21 11/13/21 History clopidogrel 75 mg tablet 75 mg PO DIRECTED #90 tab 09/26/21 11/13/21 11/12/21 Rx ibuprofen 200 mg tablet 800 mg PO DAILY PRN 11/13/21 11/13/21 11/13/21 History magnesium 250 mg tablet 250 mg PO DAILY 11/13/21 11/13/21 11/13/21 History Allergies Allergy/AdvReac Type Severity Reaction Status Date / Time atorvastatin [From Lipitor] Allergy Severe ALGY-Anaphy Verified 11/13/21 11:41 laxis colesevelam [From WelChol] Allergy Severe ALGY-Anaphy Verified 11/13/21 11:41 laxis nickel Allergy Severe ALGY-Rash Verified 11/13/21 11:41 varenicline [From Chantix] Allergy Severe ALGY-Anaphy Verified 11/13/21 11:41 laxis lisinopril Allergy w/HCTZ Verified 11/13/21 11:41 makes dizzy PFSH Acute PFSH: Medical History Arthritis Cellulitis Chronic radicular low back pain COPD (chronic obstructive pulmonary disease) 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 Emphysema (subcutaneous) (surgical) resulting from a procedure *Erroneous Entry* Emphysema lung Heart failure with preserved ejection fraction HTN (hypertension) Hypercholesterolemia Hyperlipidemia Long-term current use of opiate analgesic Neuropathy Pain management contract signed PVD (peripheral vascular disease) Sepsis Sepsis Status post amputation of finger Tobacco use disorder Surgical History History of back surgery S/P arterial stent (~2018) S/P knee surgery S/P rotator cuff repair (~06/12/14) Right / DR KIM Status post above-knee amputation of left lower extremity Family History Father Liver disease Mother Cancer Other CAD (coronary artery disease) Diabetes Stroke Social History Smoking and tobacco status: current every day smoker (1 pck day) Alcohol intake: current Alcohol intake frequency: holidays/special occasions only Lives independently: Yes History of recent travel: No Vitals/I&O/Wt Last Vital Signs Temp 97.8 F 11/13/21 11:44 Pulse 76 11/13/21 14:00 Resp 17 11/13/21 14:00 BP 133/93 11/13/21 14:00 Pulse Ox 95 05/15/22 14:00 11/13/21 11/13/21 11/13/21 06:59 14:59 22:59 Output Total 1100 / 1100 Balance -1100 / -1100 Weight last 48 hrs Weight 86.183 kg Physical Exam Const: COMMON NORMALS: patient oriented x3 HENMT: COMMON NORMALS: normocephalic, atraumatic, hearing grossly normal b ilaterally and external ears normal HEAD & SCALP: normocephalic and atrau matic EXTERNAL EAR: Yes external ears normal Eye: COMMON NORMALS: no scleral icterus GENERAL EYE: appearance normal, both eyes and all related structures Chest: COMMONS NORMALS: normal inspection of the chest and normal palpation of entire chest wall CHEST: Yes Symmetrical chest wall rise Resp: COMMON NORMALS: normal respiratory effort, No retractions, No use of accessory muscles and clear to auscultation bilaterally EFFORT & INSPECTION: Yes symmetric chest movement AUSCULTATION: clear to auscultation bilaterally Cardio: COMMON NORMALS: regular rate, regular rhythm, S1 normal heart sound present, S2 normal heart sound present, No gallops present (Cardio), No murmurs present (Cardio), No rub (Cardio) and Peripheral pulses 2+ throughout RATE: regular rate RHYTHM: regular rhythm HEART SOUNDS: S1 normal heart sound present and S2 normal heart sound present PERIPHERAL PULSES: Peripheral pulses 2+ throughout GI: COMMON NORMALS: Normal to inspection, nondistended, normoactive bowel sounds present, Soft to palpation, non-tender, No hepatosplenomegaly present and no masses AUSCULTATION: Yes normoactive bowel sounds PALPATION: Yes Soft to palpation and Yes No hepatosplenomegaly present RECTAL EXAM: Yes deferred Extremity: COMMON NORMALS: no clubbing, cyanosis or edema and no pedal edema NARRATIVE EXTREMITY EXAM: lt AKA Neuro: COMMON NORMALS: patient oriented x3 Urinary Catheter Management: Gordon: Cath Placed During This Visit: yes Urinary Catheter Date of Insertion: 11/13/21 Urinary Catheter Time of Insertion: 15:18 Data : 11/13/21 11:45 11/13/21 11:45 A&P Assessment and plan (1) Diastolic heart failure: Status: Acute Qualifiers: Heart failure chronicity: chronic Qualified Code(s): I50.32 - Chronic diastolic (congestive) heart failure (2) HTN (hypertension): Status: Acute Qualifiers: Hypertension type: essential hypertension Qualified Code(s): I10 - Essential (primary) hypertension (3) PVD (peripheral vascular disease): Status: Acute (4) Chest pain: Status: Acute Plan 66 year male with past medical history of COPD, hypertension , heart failure with preservation fraction, PVD s/p left AKA came in with C/O once episode of lt sided as well substernal chest pain started today around 10 am at home lasted around 15-20 mins and then resolved. Assessment : #Chest Pain: Likely non cardiac. Prior 2D ECho done in 2019 : -Normal lV cavity size. Normal LVSF,LVEF:61 %, no RWMA, Grade I/IV ?diastolic dysfunction (abnormal relaxation filling pattern), ?normal to mildly elevated filling pressures.Structurally normal aortic valve without significant sclerosis ?or stenosis.?There is no aortic regurgitation.? Moderately thickened mitral valve. Severe mitral annular ?calcification. No mitral valve stenosis. Mild to moderatre ?mitral valve regurgitation. Mild tricuspid valve regurgitation. ?Follow 2D Echo Telemetry May need Stress Test or any other cardiac work up. Continue Aspirin,plavix,sl nitro as needed. #H/O COPD : Not in exacerbation : Continue home inhalers #heart failure with preservation fraction: Currently compensated. Patient is slightly dry will hold home po lasix for now. Gentle I.V Hydration Monitor I/O Charting #KRISTINE ON CKD : Admission SCR : 1.3 Basline SCR :Not known Monitor BMP Gentle I.V Hydration Avoid Nephrotoxics #Code Status :Full code #DVT PPX: On Lovenox Attestations Medical Necessity Statement*: Patient needs to be in hospital for chest pain management and work up.Anticipated LOS Greater then 2 midnights. Time Spent in Patient Care: Greater than 35 minutes (>than 50% of time spent in counselling and/or direct pt care on unit) . Coding Level of Care Code Acute Industry Operations Investigator for Chg Fwd Exam Comprehensive Diagnoses Diastolic heart failure I50.32 Heart failure chronicity: chronic HTN (hypertension) I10 Hypertension type: essential hypertension PVD (peripheral vascular disease) I73.9 Chest pain R07.9
[2021-11-13] MEDS: enoxaparin 40 mg/0.4 mL Syringe SUBCUT (16:53)
[2021-11-13] MEDS: oxyCODONE 5 mg IR Tab/Cap 10 MG PO (16:56)
--- NOTE | 2021-11-13 17:56 | ECG_ITS ---
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 Measurements Intervals [place] Rate: 96 P: 67 VT: 152 QRS: 30 QRSD: 96 T: 69 QT: 350 QTc: 444 Interpretive Statements SINUS RHYTHM Compared to ECG 11/13/2021 14:25:08 No significant changes Electronically Signed On 11-14-2021 17:43:39 CDT by Evon Abreu M.D. [id number]
[2021-11-13 18:08] LABS: Troponin 5 6HR 11.36 ng/L (0-15)
[2021-11-13 18:30] LABS: Troponin 5 6HR Delta -0.64 ng/L (0-12)
--- NOTE | 2021-11-13 18:46 | PC.NURSE ---
admitted into room 112-2 from er at 1605.report received.pt is alert and oriented x 4.sr on monitor.oriented to room environment.instructed to notify staff for chest pain,sob,sweating,dizziness...or for any concerns at all.pt verb understanding of instructions
[2021-11-13] MEDS: acetaminophen 325 mg Tablet 650 MG PO (19:41)
[2021-11-13] MEDS: gabapentin 400 mg Capsule 800 MG PO (19:42)
[2021-11-13] MEDS: clopidogrel 75 mg Tablet PO (19:42)
[2021-11-13] MEDS: trazodone 100 mg Tablet 200 MG PO (21:32)
[2021-11-13] MEDS: sodium chloride 0.9% 1,000 ML 50 ML IV (21:34)
[2021-11-14] VITALS (9 sets, daily range): BP systolic 93–119; BP diastolic 58–69; PULSE 73–89; RESP 16–18; TEMP 36.6–36.8; O2SAT 93–98
[2021-11-14] MEDS: oxyCODONE 5 mg IR Tab/Cap 10 MG PO ×3 (00:30→13:32)
[2021-11-14 05:08] LABS: Basophils % 0.4 %; Eosinophils # 0.4 10^3/uL (0.0-0.8); Eosinophils % 3.7 %; Hematocrit 41.3 % (42.0-52.0); Lymphocytes # 2.5 10^3/uL (0.8-4.8); Lymphocytes % 24.3 %; Mean Corpuscular HGB Conc 31.5 g/dL (30.0-36.0); Mean Corpuscular Hemoglobin 29.8 pg (28.0-34.0); Mean Corpuscular Volume 94.7 fl (80-94); Mean Platelet Volume 10.1 fL (7.4-10.4); Monocytes # 0.5 10^3/uL (0.2-0.9); Neutrophils # 6.84 10^3/uL (1.8-7.7); Neutrophils % 66.2 %; Nucleated Red Blood Cells % 0 %; Platelet Count 192 10^3/cmm (130-400); Red Blood Count 4.36 10^6/uL (4.1-5.3); Red Cell Distribution Width 14.5 % (12.1-15.1); White Blood Count 10.3 10^3/uL (4.0-10.0)
[2021-11-14 05:27] LABS: Anion Gap 13.7 (5-19); Blood Urea Nitrogen 32 mg/dL (8-23); Calcium 9.6 mg/dL (8.5-10.5); Carbon Dioxide 29 mmol/L (22-29); Chloride 103 mmol/L (98-107); Glomerular Filtration Rate 74.3 mL/min (90-130); Glucose 101 mg/dL (65-115); Osmolality Calculated 301 mOsm/kg (285-295); Potassium 3.7 mmol/L (3.5-5.1); Sodium 142 mmol/L (136-145)
[2021-11-14] MEDS: cyanocobalamin 1,000 mcg Tablet 500 MCG PO (08:32)
[2021-11-14] MEDS: multivitamin therapeutic Tablet 1 TAB PO (08:32)
[2021-11-14] MEDS: aspirin 81 mg EC Tablet PO (08:32)
[2021-11-14] MEDS: tamsulosin 0.4 mg Capsule PO (08:32)
[2021-11-14] MEDS: gabapentin 400 mg Capsule 800 MG PO (08:32)
[2021-11-14] MEDS: cholecalciferol (vitamin D3) 1,000 unit Tablet 1000 UNIT PO (08:32)
--- NOTE | 2021-11-14 10:39 | USCV_ITS ---
Checo Jose Luis Age: 66 Gender: M : 1955 Exam Date: 11/14/2021 11:04 Ordering Phys: Luis Jiang MD Technologist: Evelyn Ervin Exam Location: [facility] [place] Indication: Recent Art bypass using Rt. GSV. HISTORY: Recent Art bypass using Rt. GSV per pt. PROCEDURES: Venous duplex imaging was performed in only the right lower extremity. The following venous structures were evaluated: common femoral vein, profunda vein, proximal portion of the greater saphenous vein, superficial femoral vein, and the popliteal vein. In addition, the posterior tibial and peroneal trunk were evaluated. Serial compression, augmentation maneuvers, and spectral Doppler flow evaluation were performed. FINDINGS: No DVT seen. Rt. GSV not seen. CONCLUSIONS No evidence of right lower extremity DVT. Right GSV not seen Karan Espinal MD (Electronically Signed) Final Date: 14 Nov 2021 12:43 S
--- NOTE | 2021-11-14 10:41 | P.DS_ITS ---
Discharge Providers Date of Admission: 11/13/21 15:25 Date of Discharge: November 14, 2021 Attending Provider at Admission: Albert Mckay MD Attending Provider at Discharge: Albert Mckay MD Diagnoses at Discharge Discharge Diagnosis (1) Diastolic heart failure: Status: Acute Qualifiers: Heart failure chronicity: chronic Qualified Code(s): I50.32 - Chronic diastolic (congestive) heart failure (2) HTN (hypertension): Status: Acute Qualifiers: Hypertension type: essential hypertension Qualified Code(s): I10 - Essential (primary) hypertension (3) PVD (peripheral vascular disease): Status: Acute (4) Chest pain: Status: Acute Reason for Visit Reason for Visit: CHEST PAIN Hospital Course Hospital Course 66 year male with past medical history of COPD, hypertension , heart failure with preservation fraction, PVD s/p left AKA came in with C/O chest pain. Based on , patient remained asymptomatic, he remained hemodynamically stable, EKG and troponin unremarkable. He will be discharged home. Echo report is pending. CTA chest ruled out PE. Etiology of chest pain most likely noncardiac. Physical Exam Narrative: Patient is awake and alert nonfocal neuro exam Left leg amputee Right leg no active edema, no signs of vascular compromise S1, S2 Satting well on room air Nonfocal neuro exam Pleasant and cooperative Urinary Catheter Management: Gordon: Cath Placed During This Visit: yes Reason for Continuing Indwelling Catheter: Acute Urinary Retention or Obstruction Urinary Catheter Date of Insertion: 11/13/21 Urinary Catheter Time of Insertion: 15:18 Discharge Data Studies Completed and Pending Completed Studies During Hospitalization Category Date Time Status CT angio chest PE protcl [id number] Stat Cat Scan 11/13/21 12:18 Completed XR chest 1V portable [id number] Stat Exams 11/13/21 11:55 Completed Pending at discharge Category Date Time Status Basic Metabolic Panel AM LABS Lab 11/15/21 04:00 Ordered Basic Metabolic Panel AM LABS Lab 11/16/21 04:00 Ordered Complete Blood Count w/Auto AM LABS Lab 11/15/21 04:00 Ordered Complete Blood Count w/Auto AM LABS Lab 11/16/21 04:00 [place] [id number] Urgent Ultrasound 11/14/21 10:39 Ordered CV. echo complete* [id number] Routine Ultrasound 11/13/21 15:34 Taken Radiology Impressions Chest X-Ray 11/13/21 11:55 IMPRESSION: No acute cardiopulmonary abnormality identified. Chest CTA 11/13/21 12:18 IMPRESSION: 1. No pulmonary artery embolism identified. 2. No thoracic aortic aneurysm or dissection identified. 3. Small pericardial effusion. 4. Coronary atherosclerosis. Laboratory Results WBC 10.3 10^3/uL (4.0-10.0) H 11/14/21 04:30 RBC 4.36 10^6/uL (4.1-5.3) 11/14/21 04:30 Hgb 13.0 g/dL (11.7-16.6) 11/14/21 04:30 Hct 41.3 % (42.0-52.0) L 11/14/21 04:30 MCV 94.7 fl (80-94) H 11/14/21 04:30 MCH 29.8 pg (28.0-34.0) 11/14/21 04:30 MCHC 31.5 g/dL (30.0-36.0) 11/14/21 04:30 RDW 14.5 % (12.1-15.1) 11/14/21 04:30 Plt Count 192 10^3/cmm (130-400) 11/14/21 04:30 MPV 10.1 fL (7.4-10.4) 11/14/21 04:30 Neut % (Auto) 66.2 % 11/14/21 04:30 Lymph % (Auto) 24.3 % 11/14/21 04:30 [place] % (Auto) 5.0 % 11/14/21 04:30 Eos % (Auto) 3.7 % 11/14/21 04:30 Baso % (Auto) 0.4 % 11/14/21 04:30 Neut # (Auto) 6.84 10^3/uL (1.8-7.7) 11/14/21 04:30 Lymph # (Auto) 2.5 10^3/uL (0.8-4.8) 11/14/21 04:30 Fountain # (Auto) 0.5 10^3/uL (0.2-0.9) 11/14/21 04:30 Eos # (Auto) 0.4 10^3/uL (0.0-0.8) 11/14/21 04:30 Baso # (Auto) 0.0 10^3/uL (0.0-0.1) 11/14/21 04:30 Nucleated RBC % (auto) 0 % 11/14/21 04:30 Nucleated RBCs # 0.0 /100WBC 11/14/21 04:30 D-Dimer 1.29 ug/mIFEU (0-0.59) H 11/13/21 11:45 Sodium 142 mmol/L (136-145) 11/14/21 04:30 Potassium 3.7 mmol/L (3.5-5.1) 11/14/21 04:30 Chloride 103 mmol/L (98-107) 11/14/21 04:30 Carbon Dioxide 29 mmol/L (22-29) 11/14/21 04:30 Anion Gap 13.7 (5-19) 11/14/21 04:30 BUN 32 mg/dL (8-23) H 11/14/21 04:30 Creatinine 1.0 mg/dL (0.7-1.2) 11/14/21 04:30 GFR Calculation 74.3 mL/min (90-130) L 11/14/21 04:30 Glucose 101 mg/dL (65-115) 11/14/21 04:30 Calculated Osmolality 301 mOsm/kg (285-295) H 11/14/21 04:30 Calcium 9.6 mg/dL (8.5-10.5) 11/14/21 04:30 Total Bilirubin 0.2 mg/dL (0.15-1.2) 11/13/21 11:45 AST 11 U/L (0-40) 11/13/21 11:45 ALT 9 U/L (0-41) 11/13/21 11:45 Alkaline Phosphatase 90 IU/L (40-130) 11/13/21 11:45 Troponin T Baseline 12 ng/L (0-15) 11/13/21 11:45 Troponin T 120 Minute 11.28 ng/L (0-15) 11/13/21 13:40 Delta Troponin T -0.72 ABS# (0-10) L 11/13/21 13:40 Troponin T Hi Sens 6Hr 11.36 ng/L (0-15) 11/13/21 17:16 Troponin T Hi Sens 6Hr Delta -0.64 ng/L (0-12) L 11/13/21 17:16 NT-Pro-B Natriuret Pep 42 pg/mL (0-125) 11/13/21 11:45 Total Protein 7.2 g/dL (6.6-8.7) 11/13/21 11:45 Albumin 4.2 g/dL (3.5-5.2) 11/13/21 11:45 Globulin 3.0 g/dL (1.3-4.6) 11/13/21 11:45 Lipase 19 U/L (13-60) 11/13/21 11:45 SARS-CoV-2 Ag (Rapid) Negative (Negative) 11/13/21 13:07 Vitals Last Vital Signs Temp 98.2 F 11/14/21 07:02 Pulse 89 11/14/21 10:00 Resp 16 11/14/21 10:00 BP 115/65 11/14/21 07:02 Pulse Ox 94 11/14/21 10:00 Discharge Plan Discharge Patient Disposition: Home Condition: Stable Prescriptions: Continued oxycodone 10 mg tablet 10 mg PO QID PRN (Reason: pain) 30 Days Qty: 120 0RF Rx Instructions: fill on or after 05/18/21 gabapentin 800 mg tablet 800 mg PO TID Qty: 90 1RF tamsulosin [Flomax] 0.4 mg capsule 0.4 mg PO DAILY 0RF fluticasone propion-salmeterol 250-50 mcg/dose blister with device 1 inh inhalation BID 0RF albuterol sulfate 90 mcg/actuation HFA aerosol inhaler 2 puff INHALATION Q6H PRN (Reason: Shortness Of Breath) 0RF trazodone 100 mg tablet 200 mg PO BEDTIME 0RF prednisone 20 mg tablet 40 mg PO DAILY PRN (Reason: GOUT) 0RF Rx Instructions: FOR 7 DAYS hydroxyzine HCl 50 mg tablet 50 mg PO QID PRN (Reason: itching) Qty: 60 0RF furosemide 40 mg tablet 40 mg PO DAILY Qty: 90 3RF Repatha SureClick 140 mg/mL pen injector 140 mg SUBCUT Q14D Qty: 2 12RF Rx Instructions: On Saturdays clopidogrel 75 mg tablet 75 mg PO DIRECTED Qty: 90 3RF Rx Instructions: Take one tab daily at 8:00pm multivitamin Tablet 1 tab PO DAILY 0RF cyanocobalamin (vitamin B-12) [Vitamin B-12] 500 mcg Tablet 500 mcg PO DAILY Qty: 0 0RF lisinopril-hydrochlorothiazide 10-12.5 mg tablet 0.5 tab PO BEDTIME 0RF cholecalciferol (vitamin D3) [Vitamin D3] 25 mcg (1,000 unit) Capsule 25 mcg PO DAILY Qty: 0 0RF Combivent Respimat 20-100 mcg/actuation mist 1 puff INHALATION BID 0RF ibuprofen 200 mg Tablet 800 mg PO DAILY PRN (Reason: Pain) 0RF magnesium 250 mg Tablet 250 mg PO DAILY 0RF Discontinued celecoxib [Celebrex] 200 mg capsule 200 mg PO BEDTIME 0RF Discharge Orders: Discharge Order (Routine); Ordered 11/14/21 Ordered By: Luis Jiang Referrals: [facility] [Outside] Ekaterina Bruce NP [Referring] - 11/22/21 2:00 pm (You have a hospital followup with SABINA Gonzales November 22 at 2:00pm) Discharge Diet: Usual diet Discharge Activity: Resume usual activity Patient Instructions: Opioid Safety Discharge Attestations Time Spent in Discharge Care*: less than 30 min Status at Discharge: Cognitive status at discharge: cognitively intact , Behavioral status at discharge: cooperative , Quality Metrics Clinical Quality Measures [ No reported AMI, CVA or VTE this stay] Coding Level of Care Code Acute Chg FW DC note Diagnoses Diastolic heart failure I50.32 Heart failure chronicity: chronic HTN (hypertension) I10 Hypertension type: essential hypertension PVD (peripheral vascular disease) I73.9 Chest pain R07.9
--- NOTE | 2021-11-14 14:23 | PC.NURSE ---
dc'd pts piv. discharge instructions given to patient and his caregiver. no new medications ordered, pt to dc celebrex. Pt stated that he would not stop celebrex because he would be in too much pain if he did. Dr. Caldwell was at bedside to observe discharge and informed him of the risks of the medication. Pt verbalized understanding, has no further questions. Left via personal wheelchair with caregiver to private vehicle. all personal belongings sent with patient.
== END 2021-11-14 14:05 | disposition home or self-care (01) ==
LOC: ER 14:44 → CSU 11-14 08:45
PROVIDERS: Admitting Provider Internal Medicine; Emergency Provider Emergency Medicine; Visit Provider Internal Medicine
DX: I50.32 Chronic diastolic (congestive) heart failure (principal); I11.0 Hypertensive heart disease with heart failure; I73.9 Peripheral vascular disease, unspecified; M19.90 Unspecified osteoarthritis, unspecified site; E78.5 Hyperlipidemia, unspecified; J43.9 Emphysema, unspecified; F17.200 Nicotine dependence, unspecified, uncomplicated
CPT/HCPCS: 36415; 51702; 71045; 71275; 80048; 80053; 83690; 83880; 84484; 85025; 85378; 87426; 93005; 93306; 93971; 96372; 99285; G0378; J1650; J7030; Q9967

== ENCOUNTER → 2021-12-02 13:16 | Outpatient (BNVA) | payer MEDICARE, MEDICAID, SELFPAY | PROVIDERS: Visit Provider Surgery | DX: I73.9 Peripheral vascular disease, unspecified (principal); L97.512 Non-pressure chronic ulcer of other part of right foot with fat layer exposed | CPT/HCPCS: 11043 ==

== ENCOUNTER → 2021-12-09 08:28 | Outpatient (BNVA) | payer MEDICARE, MEDICAID, SELFPAY | PROVIDERS: Visit Provider Nurse Practitioner Family | DX: I73.9 Peripheral vascular disease, unspecified (principal); L97.512 Non-pressure chronic ulcer of other part of right foot with fat layer exposed; T81.89XA Other complications of procedures, not elsewhere classified, initial encounter; Y83.8 Other surgical procedures as the cause of abnormal reaction of the patient, or of later complication, without mention of misadventure at the time of the procedure; I96 Gangrene, not elsewhere classified | CPT/HCPCS: 11042 ==

== ENCOUNTER → 2021-12-16 08:32 | Outpatient (BNVA) | payer MEDICARE, MEDICAID, SELFPAY | PROVIDERS: Visit Provider Nurse Practitioner Family | DX: I73.9 Peripheral vascular disease, unspecified (principal); L97.512 Non-pressure chronic ulcer of other part of right foot with fat layer exposed; L98.492 Non-pressure chronic ulcer of skin of other sites with fat layer exposed; I96 Gangrene, not elsewhere classified | CPT/HCPCS: 11042 ==

== ENCOUNTER → 2021-12-30 09:03 | Outpatient (BNVA) | payer MEDICARE, MEDICAID, SELFPAY | PROVIDERS: Visit Provider Surgery | DX: I73.9 Peripheral vascular disease, unspecified (principal); L97.512 Non-pressure chronic ulcer of other part of right foot with fat layer exposed; T81.89XA Other complications of procedures, not elsewhere classified, initial encounter; Y83.8 Other surgical procedures as the cause of abnormal reaction of the patient, or of later complication, without mention of misadventure at the time of the procedure | CPT/HCPCS: 11043; A6212 ==

== ENCOUNTER → 2022-01-20 08:28 | Outpatient (BNVA) | payer MEDICARE, MEDICAID, SELFPAY | PROVIDERS: Visit Provider Nurse Practitioner Family | DX: I73.9 Peripheral vascular disease, unspecified (principal); L97.512 Non-pressure chronic ulcer of other part of right foot with fat layer exposed | CPT/HCPCS: 11042 ==

== ENCOUNTER → 2022-02-16 16:08 | Outpatient (BNVA) | payer MEDICARE, MEDICAID, SELFPAY | PROVIDERS: Visit Provider Nurse Practitioner Family | DX: I10 Essential (primary) hypertension (principal); E78.00 Pure hypercholesterolemia, unspecified; F17.200 Nicotine dependence, unspecified, uncomplicated | CPT/HCPCS: 36415; 80048; 80061; 99213; 99214 ==

== ENCOUNTER → 2022-03-29 08:27 | Outpatient (BNVA) | payer MEDICARE, MEDICAID, SELFPAY | PROVIDERS: Visit Provider Thoracic Surgery (Cardiothoracic Vascular Surgery) | DX: I96 Gangrene, not elsewhere classified (principal); L97.512 Non-pressure chronic ulcer of other part of right foot with fat layer exposed | CPT/HCPCS: 11042; 99213 ==

== ENCOUNTER → 2022-04-05 09:26 | Outpatient (BNVA) | payer MEDICARE, MEDICAID, SELFPAY | PROVIDERS: Visit Provider Thoracic Surgery (Cardiothoracic Vascular Surgery) | DX: I96 Gangrene, not elsewhere classified (principal); L97.512 Non-pressure chronic ulcer of other part of right foot with fat layer exposed | CPT/HCPCS: 11042 ==

== ENCOUNTER → 2022-04-26 09:09 | Outpatient (BNVA) | payer MEDICARE, MEDICAID, SELFPAY | PROVIDERS: Visit Provider Thoracic Surgery (Cardiothoracic Vascular Surgery) | DX: T81.89XD Other complications of procedures, not elsewhere classified, subsequent encounter (principal); Y83.8 Other surgical procedures as the cause of abnormal reaction of the patient, or of later complication, without mention of misadventure at the time of the procedure; I96 Gangrene, not elsewhere classified | CPT/HCPCS: 11042 ==

== ENCOUNTER 2022-04-27 14:59 | Outpatient (CLI) | payer MEDICARE, MEDICAID, SELFPAY ==
--- NOTE | 2022-04-27 15:14 | CT_ITS ---
WS: [id number] LDCT LUNG CANCER SCREENING HISTORY: LUNG SCREENING, HX OF TOBACCO USE TECHNIQUE: Axial imaging performed from the apices to 1 cm below the costophrenic angles. Coronal and sagittal reformats are submitted with axial MIP series. All CT scans at [facility] use at least one of these dose optimization techniques: automated exposure control; mA and/or kV adjustment per patient size (includes targeted exams where dose is matched to clinical indication); or iterativ e reconstruction. DLP: 79.61 mGy.cm DIvol: Mean CTDIvol: 1.60 (mGy) COMPARISON: None available. Diagnostic quality: Satisfactory Lung Nodules: No pulmonary nodule or endobronchial lesion identified. No mass or pneumonia. Heart: Normal size heart. No pericardial effusion. Moderate coronary artery calcification. Other findings: Mild anterior wedging of T7. Similar to the prior study. CT/CT lung screening [id number] IMPRESSION: LUNG-RADS: 1-Negative FOLLOW UP: 12 Month: Continue annual screening with LDCT OTHER FINDINGS (S MODIFIER): None.
== END 2022-04-27 15:00 | disposition home or self-care (01) ==
LOC: RAD 14:59
PROVIDERS: Visit Provider Family Medicine
DX: Z12.2 Encounter for screening for malignant neoplasm of respiratory organs (principal); Z87.891 Personal history of nicotine dependence
CPT/HCPCS: 71271

== ENCOUNTER → 2022-05-03 09:30 | Outpatient (BNVA) | payer MEDICARE, MEDICAID, SELFPAY | PROVIDERS: Visit Provider Thoracic Surgery (Cardiothoracic Vascular Surgery) | DX: I96 Gangrene, not elsewhere classified (principal); T81.89XD Other complications of procedures, not elsewhere classified, subsequent encounter; Y83.8 Other surgical procedures as the cause of abnormal reaction of the patient, or of later complication, without mention of misadventure at the time of the procedure; L97.512 Non-pressure chronic ulcer of other part of right foot with fat layer exposed | CPT/HCPCS: 11042 ==

== ENCOUNTER → 2022-05-10 10:50 | Outpatient (BNVA) | payer MEDICARE, MEDICAID, SELFPAY | PROVIDERS: Visit Provider Thoracic Surgery (Cardiothoracic Vascular Surgery) | DX: I96 Gangrene, not elsewhere classified (principal); T81.89XD Other complications of procedures, not elsewhere classified, subsequent encounter; Y83.8 Other surgical procedures as the cause of abnormal reaction of the patient, or of later complication, without mention of misadventure at the time of the procedure; L97.512 Non-pressure chronic ulcer of other part of right foot with fat layer exposed | CPT/HCPCS: 11042 ==

== ENCOUNTER → 2022-05-17 13:29 | Outpatient (BNVA) | payer MEDICARE, MEDICAID, SELFPAY | PROVIDERS: Visit Provider Nurse Practitioner Family | DX: T81.89XD Other complications of procedures, not elsewhere classified, subsequent encounter (principal); Y83.8 Other surgical procedures as the cause of abnormal reaction of the patient, or of later complication, without mention of misadventure at the time of the procedure; I96 Gangrene, not elsewhere classified; L97.512 Non-pressure chronic ulcer of other part of right foot with fat layer exposed | CPT/HCPCS: 11042 ==

== ENCOUNTER → 2022-05-31 13:00 | Outpatient (BNVA) | payer MEDICARE, MEDICAID, SELFPAY | PROVIDERS: Visit Provider Nurse Practitioner Family | DX: I96 Gangrene, not elsewhere classified (principal); T81.89XD Other complications of procedures, not elsewhere classified, subsequent encounter; Y83.8 Other surgical procedures as the cause of abnormal reaction of the patient, or of later complication, without mention of misadventure at the time of the procedure; L97.512 Non-pressure chronic ulcer of other part of right foot with fat layer exposed | CPT/HCPCS: 11042 ==

== ENCOUNTER → 2022-06-07 14:00 | Outpatient (BNVA) | payer MEDICARE, MEDICAID, SELFPAY | PROVIDERS: Visit Provider Thoracic Surgery (Cardiothoracic Vascular Surgery) | DX: T81.89XD Other complications of procedures, not elsewhere classified, subsequent encounter (principal); Y83.8 Other surgical procedures as the cause of abnormal reaction of the patient, or of later complication, without mention of misadventure at the time of the procedure; I96 Gangrene, not elsewhere classified; L97.512 Non-pressure chronic ulcer of other part of right foot with fat layer exposed | CPT/HCPCS: 97597 ==

== ENCOUNTER → 2022-06-14 13:13 | Outpatient (BNVA) | payer MEDICARE, MEDICAID, SELFPAY | PROVIDERS: Visit Provider Thoracic Surgery (Cardiothoracic Vascular Surgery) | DX: T81.31XD Disruption of external operation (surgical) wound, not elsewhere classified, subsequent encounter (principal); Y83.8 Other surgical procedures as the cause of abnormal reaction of the patient, or of later complication, without mention of misadventure at the time of the procedure; E11.621 Type 2 diabetes mellitus with foot ulcer; L97.512 Non-pressure chronic ulcer of other part of right foot with fat layer exposed; Z89.421 Acquired absence of other right toe(s) | CPT/HCPCS: 97597 ==

== ENCOUNTER → 2022-07-05 10:00 | Outpatient (BNVA) | payer MEDICARE, MEDICAID, SELFPAY | PROVIDERS: Visit Provider Thoracic Surgery (Cardiothoracic Vascular Surgery) | DX: T81.31XD Disruption of external operation (surgical) wound, not elsewhere classified, subsequent encounter (principal); Y83.8 Other surgical procedures as the cause of abnormal reaction of the patient, or of later complication, without mention of misadventure at the time of the procedure; L97.512 Non-pressure chronic ulcer of other part of right foot with fat layer exposed | CPT/HCPCS: 11042 ==

== ENCOUNTER → 2022-07-07 11:08 | Outpatient (BNVA) | payer MEDICARE, MEDICAID, SELFPAY | PROVIDERS: Visit Provider Podiatrist Foot & Ankle Surgery | DX: I73.9 Peripheral vascular disease, unspecified (principal); L97.519 Non-pressure chronic ulcer of other part of right foot with unspecified severity | CPT/HCPCS: 73630; 99204 ==

== ENCOUNTER → 2022-07-12 12:04 | Outpatient (BNVA) | payer MEDICARE, MEDICAID, SELFPAY | PROVIDERS: Visit Provider Thoracic Surgery (Cardiothoracic Vascular Surgery) | DX: T81.31XD Disruption of external operation (surgical) wound, not elsewhere classified, subsequent encounter (principal); Y83.8 Other surgical procedures as the cause of abnormal reaction of the patient, or of later complication, without mention of misadventure at the time of the procedure | CPT/HCPCS: 11042 ==

== ENCOUNTER → 2022-07-14 10:16 | Outpatient (BNVA) | payer MEDICARE, MEDICAID, SELFPAY | PROVIDERS: Visit Provider Podiatrist Foot & Ankle Surgery | DX: I73.9 Peripheral vascular disease, unspecified (principal); L97.519 Non-pressure chronic ulcer of other part of right foot with unspecified severity | CPT/HCPCS: 99213 ==

== ENCOUNTER → 2022-07-21 10:41 | Outpatient (BNVA) | payer MEDICARE, MEDICAID, SELFPAY | PROVIDERS: Visit Provider Podiatrist Foot & Ankle Surgery | DX: L97.512 Non-pressure chronic ulcer of other part of right foot with fat layer exposed (principal); I73.9 Peripheral vascular disease, unspecified | CPT/HCPCS: 11042 ==

== ENCOUNTER → 2022-07-28 10:20 | Outpatient (BNVA) | payer MEDICARE, MEDICAID, SELFPAY | PROVIDERS: Visit Provider Podiatrist Foot & Ankle Surgery | DX: I73.9 Peripheral vascular disease, unspecified; L97.512 Non-pressure chronic ulcer of other part of right foot with fat layer exposed; Z89.421 Acquired absence of other right toe(s) | CPT/HCPCS: 11042; A6219 ==

== ENCOUNTER → 2022-08-04 10:28 | Outpatient (BNVA) | payer MEDICARE, MEDICAID, SELFPAY | PROVIDERS: Visit Provider Podiatrist Foot & Ankle Surgery | DX: I73.9 Peripheral vascular disease, unspecified (principal); L97.512 Non-pressure chronic ulcer of other part of right foot with fat layer exposed; Z89.421 Acquired absence of other right toe(s) | CPT/HCPCS: 11042 ==

== ENCOUNTER → 2022-08-11 10:27 | Outpatient (BNVA) | payer MEDICARE, MEDICAID, SELFPAY | PROVIDERS: Visit Provider Podiatrist Foot & Ankle Surgery | DX: I73.9 Peripheral vascular disease, unspecified (principal); L97.512 Non-pressure chronic ulcer of other part of right foot with fat layer exposed | CPT/HCPCS: 11042 ==

== ENCOUNTER → 2022-08-17 15:25 | Outpatient (BNVA) | payer MEDICARE, MEDICAID, SELFPAY | PROVIDERS: Visit Provider Internal Medicine Cardiovascular Disease | DX: I73.9 Peripheral vascular disease, unspecified (principal); Z89.612 Acquired absence of left leg above knee; E78.00 Pure hypercholesterolemia, unspecified; J44.9 Chronic obstructive pulmonary disease, unspecified; M54.16 Radiculopathy, lumbar region; G89.29 Other chronic pain; F17.210 Nicotine dependence, cigarettes, uncomplicated; I11.0 Hypertensive heart disease with heart failure; I50.30 Unspecified diastolic (congestive) heart failure | CPT/HCPCS: 99214; Q3014 ==

== ENCOUNTER → 2022-08-18 09:56 | Outpatient (BNVA) | payer MEDICARE, MEDICAID, SELFPAY | PROVIDERS: Visit Provider Podiatrist Foot & Ankle Surgery | DX: I73.9 Peripheral vascular disease, unspecified (principal); L97.511 Non-pressure chronic ulcer of other part of right foot limited to breakdown of skin | CPT/HCPCS: 11042 ==

== ENCOUNTER → 2022-08-25 11:16 | Outpatient (BNVA) | payer MEDICARE, MEDICAID, SELFPAY | PROVIDERS: Visit Provider Podiatrist Foot & Ankle Surgery | DX: I73.9 Peripheral vascular disease, unspecified (principal); L97.512 Non-pressure chronic ulcer of other part of right foot with fat layer exposed | CPT/HCPCS: 11042 ==

== ENCOUNTER → 2022-08-29 10:19 | Outpatient (BNVA) | payer MEDICARE, MEDICAID, SELFPAY | PROVIDERS: Visit Provider Podiatrist Foot & Ankle Surgery | DX: L97.512 Non-pressure chronic ulcer of other part of right foot with fat layer exposed (principal); I73.9 Peripheral vascular disease, unspecified | CPT/HCPCS: 11042 ==

== ENCOUNTER → 2022-09-05 14:21 | Outpatient (BNVA) | payer MEDICARE, MEDICAID, SELFPAY | PROVIDERS: Visit Provider Podiatrist Foot & Ankle Surgery | DX: L97.512 Non-pressure chronic ulcer of other part of right foot with fat layer exposed (principal); M25.471 Effusion, right ankle; I73.9 Peripheral vascular disease, unspecified | CPT/HCPCS: 11042; 99213 ==

== ENCOUNTER → 2022-09-12 13:35 | Outpatient (BNVA) | payer MEDICARE, MEDICAID, SELFPAY | PROVIDERS: Visit Provider Podiatrist Foot & Ankle Surgery | DX: I73.9 Peripheral vascular disease, unspecified (principal); L97.512 Non-pressure chronic ulcer of other part of right foot with fat layer exposed; M25.471 Effusion, right ankle | CPT/HCPCS: 11042 ==

== ENCOUNTER 2022-09-19 12:47 | Outpatient (RCR) | payer MEDICARE, MEDICAID, SELFPAY | END 2022-09-29 23:59 | disposition home or self-care (01) | LOC: SPT 12:47 | PROVIDERS: PCP Family Medicine; Visit Provider Family Medicine | DX: Z89.612 Acquired absence of left leg above knee (principal) | CPT/HCPCS: 97161 ==

== ENCOUNTER 2022-09-22 11:34 | Emergency (ER) | payer MEDICARE, MEDICAID, SELFPAY ==
--- NOTE | 2022-09-22 11:43 | XR_ITS ---
WS: [id number] EXAMINATION: XR shoulder RT min 2V* [id number] REASON FOR EXAM: Right shoulder pain COMPARISON: 06/10/2014 ORDER DATE: 09/22/2022 12:02 PM TECHNIQUE: 3 views of the right shoulder were obtained. X-RAY FINDINGS: No fractures or dislocations. Normal motion of the shoulder with internal/external rotation. No degenerative changes. Acromioclavicular joint appears unremarkable. Limited visualization of the adjacent hemithorax is unremarkable. XR/XR shoulder RT min 2V* [id number] IMPRESSION: No fractures or dislocations of the right shoulder.
[2022-09-22 11:58] VITALS: BP 142/79; PULSE 103; RESP 18; TEMP 37.2; O2SAT 90; BMI 32.5
--- NOTE | 2022-09-22 12:50 | W.ED.EXTPRO ---
HPI - Extremity Problem General: Chief complaint: Extremity Injury, Upper Stated complaint: rt shoulder pain Time Seen by Provider: 09/22/22 12:04 History of Present Illness: Patient is a 67-year-old male that comes to the ED via EMS with right shoulder pain. Symptoms started about 4 days ago. Patient says he woke up 4 days ago and was having pain in his right shoulder that radiated down into his elbow. Pain is continued to progress and he now rates it a 9 out of 10. Pain radiates up his shoulder and into his upper back and neck as well. Any movement of right arm causes worsening pain. Denies any injury or trauma to cause symptoms. Denies any chest pain or shortness of breath. Associated symptoms: Deny chest pain, fever(s) or rash Review of Systems Const: Denies: fever(s), chills or fatigue Eyes: Denies: change in vision or eye discomfort ENMT: Denies: throat pain, odynophagia, nasal discharge or nasal congestion Card: Denies: chest pain, palpitations, edema, swelling of feet/ankles, dyspnea on exertion or orthopnea Resp: Denies: dyspnea, productive cough or non-productive cough GI: Denies: abdominal pain, nausea, vomiting, diarrhea, constipation or hematochezia : Denies: flank pain, difficulty urinating, dysuria or hematuria Musc: Reports: extremity pain (Right shoulder and right arm pain); Denies: neck pain, back pain or extremity swelling Skin/Breast: Denies: rash or new lesions Neuro: Denies: headache(s), numbness in extremities or weakness in extremities PFS ED PFSH: Medical History Arthritis Cellulitis Chronic radicular low back pain COPD (chronic obstructive pulmonary disease) 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 Diastolic heart failure Emphysema lung Heart failure with preserved ejection fraction HTN (hypertension) Hypercholesterolemia Hyperlipidemia Long-term current use of opiate analgesic Neuropathy Pain management contract signed Peripheral arterial disease PVD (peripheral vascular disease) Sepsis Status post amputation of finger Tobacco use disorder Surgical History History of back surgery S/P arterial stent (~2018) S/P knee surgery S/P rotator cuff repair (~12/12/14) Right / DR KIM Status post above-knee amputation of left lower extremity Family History Father Liver disease Mother Cancer Other CAD (coronary artery disease) Diabetes Stroke Social History Smoking and tobacco status: current every day smoker (1 pck day) Alcohol intake: current Alcohol intake frequency: holidays/special occasions only Lives independently: Yes Physical Exam Const: COMMON NORMALS: no acute distress, patient oriented x3 and alert GENERAL APPEARANCE: cooperative HENMT: COMMON NORMALS: normocephalic HEAD & SCALP: normocephalic MOUTH: Normal oral and palatal mucosa present THROAT: posterior oropharynx normal and uvula midline Neck/C-Spine: COMMON NORMALS: supple GENERAL: Yes normal visual inspection CERVICAL SPINE: Yes Trapezius muscle tenderness right Resp: COMMON NORMALS: normal respiratory effort, No retractions, No use of accessory muscles and clear to auscultation bilaterally AUSCULTATION: clear to auscultation bilaterally Cardio: COMMON NORMALS: regular rate, regular rhythm, S1 normal heart sound present, S2 normal heart sound present, No gallops present (Cardio), No clicks present (Cardio), No murmurs present (Cardio) and Peripheral pulses 2+ throughout RATE: regular rate RHYTHM: regular rhythm HEART SOUNDS: S1 normal heart sound present and S2 normal heart sound present PERIPHERAL PULSES: Peripheral pulses 2+ throughout GI: COMMON NORMALS: Normal to inspection, nondistended, normoactive bowel sounds present, Soft to palpation, non-tender and no masses PALPATION: Yes Soft to palpation : COMMON NORMALS: Yes no CVA tenderness BLADDER/KIDNEY EXAM: Yes no CVA tenderness Back/Pelvis: COMMON NORMALS: no CVA tenderness Extremity: COMMON NORMALS: normal to inspection NARRATIVE EXTREMITY EXAM: Right shoulder?tenderness to palpation throughout shoulder. Soft tissue tenderness around scapular of shoulder as well. Limited range of motion due to pain. Neurovascular intact distally. Neuro: COMMON NORMALS: patient oriented x3 SENSORIUM/ORIENTATION: Yes alert GAIT: Yes Normal gait present Skin: GENERAL SKIN EXAM: dry skin Course Vital Signs: Vital signs: Vital Signs Temperature 98.9 F 09/22/22 16:08 Pulse Rate 98 09/22/22 16:08 Respiratory Rate 16 09/22/22 16:08 Blood Pressure 156/83 09/22/22 16:08 Pulse Oximetry 90 09/22/22 16:08 Oxygen Delivery Me thod 09/22/22 16:08 MDM - Extremity (Nontraumatic) Medical Decision Making Patient is a 67-year-old male that comes to the ED via EMS with right shoulder pain. Symptoms started about 4 days ago. Patient says he woke up 4 days ago and was having pain in his right shoulder that radiated down into his elbow. Pain is continued to progress and he now rates it a 9 out of 10. Pain radiates up his shoulder and into his upper back and neck as well. Any movement of right arm causes worsening pain. Denies any injury or trauma to cause symptoms. Denies any chest pain or shortness of breath. Vitals are stable.Right shoulder?tenderness to palpation throughout shoulder. Soft tissue tenderness around scapular of shoulder as well. Limited range of motion due to pain. Neurovascular intact distally. Right shoulder x-ray shows no acute fractures or dislocations. Ultrasound venous duplex of right upper extremity showed no DVTs. Patient was given a dose of morphine and Norflex here in the ED. Given patient's clinical appearance and exam findings his pain is likely muscular in nature. He was diagnosed with right shoulder pain. He was put in a right shoulder sling. Sent home with a prescription for muscle relaxer and told to continue taking his previously prescribed pain meds. Follow-up with PCP in the next week for reevaluation. Patient understood and agreed with plan. Lab Data Radiology Impressions Shoulder X-Ray 09/22/22 11:43 IMPRESSION: No fractures or dislocations of the right shoulder. Discharge Plan Discharge Patient Disposition: Home Clinical Impression: Acute pain of right shoulder Condition: Stable Prescriptions: New methocarbamol 750 mg tablet 750 mg PO Q8H PRN (Reason: Muscle spasms and pain) Qty: 20 0RF No Action oxycodone 10 mg tablet 10 mg PO QID PRN (Reason: pain) 30 Days Qty: 120 0RF Rx Instructions: fill on or after 05/18/21 gabapentin 800 mg tablet 800 mg PO TID Qty: 90 1RF tamsulosin [Flomax] 0.4 mg capsule 0.4 mg PO DAILY albuterol sulfate 90 mcg/actuation HFA aerosol inhaler 2 puff INHALATION Q6H PRN (Reason: Shortness Of Breath) trazodone 100 mg tablet 200 mg PO BEDTIME hydroxyzine HCl 50 mg tablet 50 mg PO QID PRN (Reason: itching) Qty: 60 0RF Repatha SureClick 140 mg/mL pen injector 140 mg SUBCUT Q14D Qty: 2 12RF Rx Instructions: On Saturdays carvedilol 3.125 mg tablet 3.125 mg PO BID Rx Instructions: must administer with a meal/food ascorbic acid (vitamin C) 500 mg tablet 500 mg PO DAILY (DME) 2 pairs of compression stockings 15-20 mmhg See Rx Instructions .Route .MEDSUPPLY Qty: 1 0RF Rx Instructions: As directed HOME levofloxacin 500 mg tablet 500 mg PO DAILY Qty: 10 0RF furosemide 40 mg tablet 40 mg PO DAILY Qty: 90 3RF clopidogrel 75 mg tablet 75 mg PO DIRECTED Qty: 90 3RF Rx Instructions: Take one tab daily at 8:00pm cyanocobalamin (vitamin B-12) [Vitamin B-12] 500 mcg Tablet 500 mcg PO DAILY Qty: 0 cholecalciferol (vitamin D3) [Vitamin D3] 25 mcg (1,000 unit) Capsule 25 mcg PO DAILY Qty: 0 Combivent Respimat 20-100 mcg/actuation mist 1 puff INHALATION BID lisinopril-hydrochlorothiazide 10-12.5 mg tablet 0.5 tab PO DAILY PRN Discharge Orders: Discharge ED (Routine); Ordered 09/22/22 Ordered By: Jonathon Krueger Referrals: Jairo Vasquez MD [Primary Care Provider] - Discharge Diet: Regular Discharge Activity: Increase activity as tolerated Patient Instructions: Shoulder Pain (ED) Activity Restrictions/Additional Instructions: Follow-up with medical provider as directed in the next 5-7 days for reevaluation. Take medications as prescribed. Wear shoulder sling for the next 2 to 3 days to rest shoulder and allow for healing. Remember to take arm out of sling a couple times a day and do some range of motion exercises to prevent frozen shoulder. Return to the ER or your medical provider if condition worsens. Please read and understand discharge instructions. Thank you for choosing [facility] for your healthcare needs today. Please realize this is an emergency room and that we are providing you with a medical screening exam and this may not be complete and all inclusive of all the testing and or work up that you may need to determine your ailment or severity of your illness. It is very important that you follow up as instructed or that you return to the Emergency Department should you have concerns or if your condition changes or worsens in any way. Coding Level of Care Code ED Fmd Teacher for Imtiaz Liang
--- NOTE | 2022-09-22 13:01 | USCV_ITS ---
Jose Luis Kessler Age: 67 Gender: M : 1955 Exam Date: 09/22/2022 13:30 Ordering Phys: Jonathon Krueger Technologist: AUDIE Exam Location: [facility] [place]_ Indication: rt arm pain HISTORY: rt arm pain PROCEDURES: Righ upper extremity US with doppler CONCLUSIONS No evidence for RIGHT upper extremity deep venous thrombosis. Karan Espinal MD (Electronically Signed) Final Date: 22 September 2022 18:16 S
[2022-09-22 13:39] VITALS: RESP 15
[2022-09-22] MEDS: morphine 4 mg/mL SDV 1 mL IVP (13:39)
[2022-09-22] MEDS: orphenadrine 30 mg/mL Inj 2 mL 60 MG IVP (13:40)
[2022-09-22 16:08] VITALS: BP 156/83; PULSE 98; RESP 16; TEMP 37.2; O2SAT 90
== END 2022-09-22 16:00 | disposition home or self-care (01) ==
PROVIDERS: Emergency Provider Physician Assistant; PCP Family Medicine
DX: M25.511 Pain in right shoulder (principal); I11.0 Hypertensive heart disease with heart failure; I50.30 Unspecified diastolic (congestive) heart failure; J43.9 Emphysema, unspecified; E78.00 Pure hypercholesterolemia, unspecified; F17.210 Nicotine dependence, cigarettes, uncomplicated
CPT/HCPCS: 73030; 93971; 96374; 96375; 99284; J2270; J2360

== ENCOUNTER → 2022-10-04 14:37 | Outpatient (BNVA) | payer MEDICARE, MEDICAID, SELFPAY | PROVIDERS: PCP Family Medicine; Visit Provider Podiatrist Foot & Ankle Surgery | DX: I73.9 Peripheral vascular disease, unspecified (principal); L97.512 Non-pressure chronic ulcer of other part of right foot with fat layer exposed | CPT/HCPCS: 11042 ==

== ENCOUNTER → 2022-10-26 14:00 | Outpatient (BNVA) | payer MEDICARE, MEDICAID, SELFPAY | PROVIDERS: PCP Family Medicine; Visit Provider Podiatrist Foot & Ankle Surgery | DX: I73.9 Peripheral vascular disease, unspecified (principal); L97.512 Non-pressure chronic ulcer of other part of right foot with fat layer exposed | CPT/HCPCS: 11042 ==

== ENCOUNTER → 2022-11-09 15:29 | Outpatient (BNVA) | payer MEDICARE, MEDICAID, SELFPAY | PROVIDERS: PCP Family Medicine; Visit Provider Podiatrist Foot & Ankle Surgery | DX: I73.9 Peripheral vascular disease, unspecified (principal); L97.512 Non-pressure chronic ulcer of other part of right foot with fat layer exposed; Z51.89 Encounter for other specified aftercare | CPT/HCPCS: 11042 ==

== ENCOUNTER → 2022-11-13 09:42 | Outpatient (BNVA) | payer MEDICARE, MEDICAID, SELFPAY | PROVIDERS: PCP Family Medicine; Visit Provider Thoracic Surgery (Cardiothoracic Vascular Surgery) | DX: T81.31XD Disruption of external operation (surgical) wound, not elsewhere classified, subsequent encounter (principal); Y83.8 Other surgical procedures as the cause of abnormal reaction of the patient, or of later complication, without mention of misadventure at the time of the procedure | CPT/HCPCS: 11042; 87070; 87077; 87176; 87186; 87205; 99213 ==

== ENCOUNTER 2022-11-20 10:18 | Outpatient (CLI) | payer MEDICARE, MEDICAID, SELFPAY ==
--- NOTE | 2022-11-20 10:41 | XRR_ITS ---
PROCEDURE INFORMATION: Exam: XR Right Foot Exam date and time: 11/20/2022 12:09 PM Age: 67 years old Clinical indication: Condition or disease; Other: Wound on the bottom of the right foot; Additional info: Right foot pain and wound, rule out osteomyelitis TECHNIQUE: Imaging protocol: Radiologic exam of the right foot. Views: 3 or more views. COMPARISON: CR XR foot RT min 3V* [id number] 07/07/2022 11:10 AM FINDINGS: Bones/joints: Absence of the phalanges of the right 3rd toe is seen, with small fragment adjacent to the metatarsophalangeal joint, as seen with prior exam. This could be related to underlying osteomyelitis as noted with prior exam. Bony erosive change noted at the distal 3rd metatarsal head, also chronic with prior exam though with suggestion of mild increased changes about the distal 3rd metatarsal head.. This could be associated with underlying osteomyelitis, though chronic with prior exam. Bony demineralization and mild degenerative change, including mild hallux valgus. No acute fracture or dislocation. Suggestion of soft tissue swelling or edema. Soft tissues: See Bones/joints finding. XR/XR foot RT min 3V* [id number] IMPRESSION: 1. 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 2. Mild degenerative changes with mild hallux valgus along with bony demineralization.
[2022-11-20 10:45] LABS: Basophils % 0.5 %; Eosinophils # 0.3 10^3/uL (0.0-0.8); Hematocrit 45.3 % (42.0-52.0); Hemoglobin 14.7 g/dL (11.7-16.6); Lymphocytes # 1.4 10^3/uL (0.8-4.8); Lymphocytes % 17.1 %; Mean Corpuscular HGB Conc 32.5 g/dL (30.0-36.0); Mean Corpuscular Hemoglobin 28.9 pg (28.0-34.0); Mean Corpuscular Volume 89.2 fl (80-94); Monocytes # 0.4 10^3/uL (0.2-0.9); Monocytes % 4.9 %; Neutrophils # 5.86 10^3/uL (1.8-7.7); Neutrophils % 73.2 %; Nucleated Red Blood Cells % 0 %; Platelet Count 232 10^3/cmm (130-400); Red Blood Count 5.08 10^6/uL (4.1-5.3); Red Cell Distribution Width 15.9 % (12.1-15.1)
[2022-11-20 11:07] LABS: Alanine Aminotransferase 8 U/L (0-41); Albumin Level 3.9 g/dL (3.5-5.2); Alkaline Phosphatase 99 U/L (40-130); Anion Gap 13.1 (5-19); Aspartate Amino Transferase 9 U/L (0-40); Blood Urea Nitrogen 11 mg/dL (8-23); Calcium 9.4 mg/dL (8.5-10.5); Carbon Dioxide 28 mmol/L (22-29); Chloride 105 mmol/L (98-107); Globulin 3.3 g/dL (1.3-4.6); Glomerular Filtration Rate 95.8 mL/min (90-130); Glucose 100 mg/dL (65-115); Osmolality Calculated 293 mOsm/kg (285-295); Potassium 4.1 mmol/L (3.5-5.1); Sodium 142 mmol/L (136-145); Total Bilirubin 0.3 mg/dL (0.15-1.2); Total Protein 7.2 g/dL (6.6-8.7)
== END 2022-11-20 10:19 | disposition home or self-care (01) ==
LOC: LAB 10:27
PROVIDERS: PCP Family Medicine; Visit Provider Thoracic Surgery (Cardiothoracic Vascular Surgery)
DX: L97.519 Non-pressure chronic ulcer of other part of right foot with unspecified severity (principal); M79.671 Pain in right foot; M19.071 Primary osteoarthritis, right ankle and foot; M20.11 Hallux valgus (acquired), right foot
CPT/HCPCS: 11042; 36415; 73630; 80053; 85025

== ENCOUNTER 2022-11-24 11:03 | Outpatient (CLI) | payer MEDICARE, MEDICAID, SELFPAY ==
--- NOTE | 2022-11-24 11:00 | MR_ITS ---
WS: [id number] MRI RIGHT FOOT with and without CONTRAST. COMPARISON: Radiograph 11/20/2022 Multiplanar, multisequence imaging is performed with and without contrast. MultiHance 20 mL IV. Patient is status post prior resection third toe. No marrow edema in the third metatarsal head. There is resorption of the bone and loss of the normal contour of the metatarsal head. There is surroundin g edema but this is diffuse throughout the foot. There is no evidence for osteomyelitis or enhancemen t of the bone. There is extensive cellulitis surrounding the foot and extending distally to involve the toes. No foc al collection or abscess is identified. There is no decubitus tract along the plantar surface of the foot. Mild narrowing of the first metatarsophalangeal joint from arthritis. MR/MR foot RT wo/w con [id number] IMPRESSION: 1. No osteomyelitis involving the distal third metatarsal at the site of resor ption. 2. Prior resection third toe. 3. Diffuse soft tissue edema and cellulitis surrounding the metatarsals and to es but no abscess.
[2022-11-24] MEDS: gadobenate dimeglumine 20 mL vial IV (12:36)
== END 2022-11-24 11:04 | disposition home or self-care (01) ==
PROVIDERS: PCP Family Medicine; Visit Provider Thoracic Surgery (Cardiothoracic Vascular Surgery)
DX: L03.115 Cellulitis of right lower limb (principal); R60.0 Localized edema
CPT/HCPCS: 73720; A9577

== ENCOUNTER → 2022-12-04 13:00 | Outpatient (BNVA) | payer MEDICARE, MEDICAID, SELFPAY | PROVIDERS: PCP Family Medicine; Visit Provider Thoracic Surgery (Cardiothoracic Vascular Surgery) | DX: I96 Gangrene, not elsewhere classified (principal); T87.81 Dehiscence of amputation stump; Y83.8 Other surgical procedures as the cause of abnormal reaction of the patient, or of later complication, without mention of misadventure at the time of the procedure; Z89.421 Acquired absence of other right toe(s) | CPT/HCPCS: 11042 ==

== ENCOUNTER 2022-12-05 12:25 | Outpatient (RCR) | payer MEDICARE, MEDICAID, SELFPAY | END 2022-12-29 23:59 | disposition home or self-care (01) | LOC: SPT 12:25 | PROVIDERS: PCP Family Medicine; Visit Provider Family Medicine | DX: Z89.619 Acquired absence of unspecified leg above knee (principal) | CPT/HCPCS: 97110; 97116; 97161 ==

== ENCOUNTER → 2022-12-18 13:18 | Outpatient (BNVA) | payer MEDICARE, MEDICAID, SELFPAY | PROVIDERS: PCP Family Medicine; Visit Provider Thoracic Surgery (Cardiothoracic Vascular Surgery) | DX: T87.81 Dehiscence of amputation stump (principal); Y83.8 Other surgical procedures as the cause of abnormal reaction of the patient, or of later complication, without mention of misadventure at the time of the procedure; Z89.421 Acquired absence of other right toe(s); I96 Gangrene, not elsewhere classified | CPT/HCPCS: 97597 ==

== ENCOUNTER → 2022-12-25 13:24 | Outpatient (BNVA) | payer MEDICARE, MEDICAID, SELFPAY | PROVIDERS: PCP Family Medicine; Visit Provider Thoracic Surgery (Cardiothoracic Vascular Surgery) | DX: T87.81 Dehiscence of amputation stump (principal); Y83.8 Other surgical procedures as the cause of abnormal reaction of the patient, or of later complication, without mention of misadventure at the time of the procedure; Z89.421 Acquired absence of other right toe(s); I73.9 Peripheral vascular disease, unspecified | CPT/HCPCS: 97597 ==

== ENCOUNTER 2022-12-30 06:00 | Outpatient (RCR) | payer MEDICARE, MEDICAID, SELFPAY | END 2023-01-29 23:59 | disposition home or self-care (01) | LOC: SPT 06:00 | PROVIDERS: PCP Family Medicine; Visit Provider Family Medicine | DX: Z89.612 Acquired absence of left leg above knee (principal) | CPT/HCPCS: 97110; 97116; 97530 ==

== ENCOUNTER → 2023-01-01 13:08 | Outpatient (BNVA) | payer MEDICARE, MEDICAID, SELFPAY | PROVIDERS: PCP Family Medicine; Visit Provider Thoracic Surgery (Cardiothoracic Vascular Surgery) | DX: T87.81 Dehiscence of amputation stump (principal); Y83.8 Other surgical procedures as the cause of abnormal reaction of the patient, or of later complication, without mention of misadventure at the time of the procedure; Z89.421 Acquired absence of other right toe(s); I73.9 Peripheral vascular disease, unspecified | CPT/HCPCS: 97597; A6252 ==

== ENCOUNTER → 2023-01-08 13:05 | Outpatient (BNVA) | payer MEDICARE, MEDICAID, SELFPAY | PROVIDERS: PCP Family Medicine; Visit Provider Thoracic Surgery (Cardiothoracic Vascular Surgery) | DX: T87.81 Dehiscence of amputation stump (principal); Y83.8 Other surgical procedures as the cause of abnormal reaction of the patient, or of later complication, without mention of misadventure at the time of the procedure; I96 Gangrene, not elsewhere classified; Z89.421 Acquired absence of other right toe(s) | CPT/HCPCS: 97597 ==

== ENCOUNTER → 2023-01-15 13:28 | Outpatient (BNVA) | payer MEDICARE, MEDICAID, SELFPAY | PROVIDERS: PCP Family Medicine; Visit Provider Thoracic Surgery (Cardiothoracic Vascular Surgery) | DX: I73.9 Peripheral vascular disease, unspecified (principal); T87.81 Dehiscence of amputation stump; Y83.8 Other surgical procedures as the cause of abnormal reaction of the patient, or of later complication, without mention of misadventure at the time of the procedure; Z89.421 Acquired absence of other right toe(s) | CPT/HCPCS: 97597 ==

== ENCOUNTER → 2023-01-22 09:29 | Outpatient (BNVA) | payer MEDICARE, MEDICAID, SELFPAY | PROVIDERS: PCP Family Medicine; Visit Provider Thoracic Surgery (Cardiothoracic Vascular Surgery) | DX: T87.81 Dehiscence of amputation stump (principal); Y83.8 Other surgical procedures as the cause of abnormal reaction of the patient, or of later complication, without mention of misadventure at the time of the procedure; Z89.421 Acquired absence of other right toe(s); I96 Gangrene, not elsewhere classified | CPT/HCPCS: 97597 ==

== ENCOUNTER → 2023-01-29 10:15 | Outpatient (BNVA) | payer MEDICARE, MEDICAID, SELFPAY | PROVIDERS: PCP Family Medicine; Visit Provider Nurse Practitioner Family | DX: T87.81 Dehiscence of amputation stump (principal); Y83.8 Other surgical procedures as the cause of abnormal reaction of the patient, or of later complication, without mention of misadventure at the time of the procedure; Z89.421 Acquired absence of other right toe(s); I73.9 Peripheral vascular disease, unspecified | CPT/HCPCS: 97597 ==

== ENCOUNTER 2023-01-30 06:00 | Outpatient (RCR) | payer MEDICARE, MEDICAID, SELFPAY | END 2023-03-01 23:59 | disposition home or self-care (01) | LOC: SPT 06:00 | PROVIDERS: PCP Family Medicine; Visit Provider Family Medicine | DX: Z89.612 Acquired absence of left leg above knee (principal) | CPT/HCPCS: 97110; 97116 ==

== ENCOUNTER → 2023-02-05 10:18 | Outpatient (BNVA) | payer MEDICARE, MEDICAID, SELFPAY | PROVIDERS: PCP Family Medicine; Visit Provider Thoracic Surgery (Cardiothoracic Vascular Surgery) | DX: T81.31XD Disruption of external operation (surgical) wound, not elsewhere classified, subsequent encounter (principal); Y83.8 Other surgical procedures as the cause of abnormal reaction of the patient, or of later complication, without mention of misadventure at the time of the procedure; I73.9 Peripheral vascular disease, unspecified | CPT/HCPCS: 97597; A6021 ==

== ENCOUNTER → 2023-02-12 10:49 | Outpatient (BNVA) | payer MEDICARE, MEDICAID, SELFPAY | PROVIDERS: PCP Family Medicine; Visit Provider Thoracic Surgery (Cardiothoracic Vascular Surgery) | DX: T87.81 Dehiscence of amputation stump (principal); Y83.8 Other surgical procedures as the cause of abnormal reaction of the patient, or of later complication, without mention of misadventure at the time of the procedure; Z89.421 Acquired absence of other right toe(s); I73.9 Peripheral vascular disease, unspecified | CPT/HCPCS: 97597; A6021 ==

== ENCOUNTER → 2023-02-19 13:05 | Outpatient (BNVA) | payer MEDICARE, MEDICAID, SELFPAY | PROVIDERS: PCP Family Medicine; Visit Provider Thoracic Surgery (Cardiothoracic Vascular Surgery) | DX: T81.31XD Disruption of external operation (surgical) wound, not elsewhere classified, subsequent encounter (principal); Y83.8 Other surgical procedures as the cause of abnormal reaction of the patient, or of later complication, without mention of misadventure at the time of the procedure | CPT/HCPCS: 97597; A6021 ==

== ENCOUNTER → 2023-02-22 14:27 | Outpatient (BNVA) | payer MEDICARE, MEDICAID, SELFPAY | PROVIDERS: PCP Family Medicine; Visit Provider Internal Medicine Cardiovascular Disease | DX: I73.9 Peripheral vascular disease, unspecified (principal); Z89.612 Acquired absence of left leg above knee; E78.00 Pure hypercholesterolemia, unspecified; J44.9 Chronic obstructive pulmonary disease, unspecified; M54.16 Radiculopathy, lumbar region; G89.29 Other chronic pain; F17.200 Nicotine dependence, unspecified, uncomplicated; I11.0 Hypertensive heart disease with heart failure; I50.30 Unspecified diastolic (congestive) heart failure | CPT/HCPCS: 99214 ==

== ENCOUNTER → 2023-02-26 13:51 | Outpatient (BNVA) | payer MEDICARE, MEDICAID, SELFPAY | PROVIDERS: PCP Family Medicine; Visit Provider Thoracic Surgery (Cardiothoracic Vascular Surgery) | DX: T81.31XD Disruption of external operation (surgical) wound, not elsewhere classified, subsequent encounter (principal); Y83.8 Other surgical procedures as the cause of abnormal reaction of the patient, or of later complication, without mention of misadventure at the time of the procedure | CPT/HCPCS: 97597; A6021 ==

== ENCOUNTER 2023-03-02 06:00 | Outpatient (RCR) | payer MEDICARE, MEDICAID, SELFPAY | END 2023-03-31 23:59 | disposition home or self-care (01) | LOC: SPT 06:00 | PROVIDERS: PCP Family Medicine; Visit Provider Family Medicine | DX: Z89.612 Acquired absence of left leg above knee (principal) | CPT/HCPCS: 97110; 97116 ==

== ENCOUNTER → 2023-03-19 16:07 | Outpatient (BNVA) | payer MEDICARE, MEDICAID, SELFPAY | PROVIDERS: PCP Family Medicine; Visit Provider Nurse Practitioner Family | DX: T87.81 Dehiscence of amputation stump (principal); Y83.8 Other surgical procedures as the cause of abnormal reaction of the patient, or of later complication, without mention of misadventure at the time of the procedure; Z89.421 Acquired absence of other right toe(s); I73.9 Peripheral vascular disease, unspecified | CPT/HCPCS: 97597; A6021 ==

== ENCOUNTER → 2023-03-26 11:13 | Outpatient (BNVA) | payer MEDICARE, MEDICAID, SELFPAY | PROVIDERS: PCP Family Medicine; Visit Provider Thoracic Surgery (Cardiothoracic Vascular Surgery) | DX: I73.9 Peripheral vascular disease, unspecified (principal); T87.81 Dehiscence of amputation stump; Y83.8 Other surgical procedures as the cause of abnormal reaction of the patient, or of later complication, without mention of misadventure at the time of the procedure; Z89.421 Acquired absence of other right toe(s) | CPT/HCPCS: 97597 ==

== ENCOUNTER 2023-04-01 06:00 | Outpatient (RCR) | payer MEDICARE, MEDICAID, SELFPAY | END 2023-05-01 23:59 | disposition home or self-care (01) | LOC: SPT 06:00 | PROVIDERS: PCP Family Medicine; Visit Provider Family Medicine | DX: Z89.612 Acquired absence of left leg above knee (principal) | CPT/HCPCS: 97110; 97116 ==

== ENCOUNTER → 2023-04-02 13:44 | Outpatient (BNVA) | payer MEDICARE, MEDICAID, SELFPAY | PROVIDERS: PCP Family Medicine; Visit Provider Thoracic Surgery (Cardiothoracic Vascular Surgery) | DX: T87.81 Dehiscence of amputation stump (principal); Y83.8 Other surgical procedures as the cause of abnormal reaction of the patient, or of later complication, without mention of misadventure at the time of the procedure; Z89.421 Acquired absence of other right toe(s); I73.9 Peripheral vascular disease, unspecified | CPT/HCPCS: 97597 ==

== ENCOUNTER → 2023-04-09 14:55 | Outpatient (BNVA) | payer MEDICARE, MEDICAID, SELFPAY | PROVIDERS: PCP Family Medicine; Visit Provider Thoracic Surgery (Cardiothoracic Vascular Surgery) | DX: M79.671 Pain in right foot (principal); I73.9 Peripheral vascular disease, unspecified; L97.512 Non-pressure chronic ulcer of other part of right foot with fat layer exposed | CPT/HCPCS: 73630; 97597 ==

== ENCOUNTER 2023-04-16 16:27 | Outpatient (CLI) | payer MEDICARE, MEDICAID, SELFPAY | END 2023-04-16 16:28 | disposition home or self-care (01) | LOC: LAB 16:43 | PROVIDERS: PCP Family Medicine; Visit Provider Urology | DX: I73.9 Peripheral vascular disease, unspecified (principal); L97.512 Non-pressure chronic ulcer of other part of right foot with fat layer exposed | CPT/HCPCS: 97597 ==

== ENCOUNTER → 2023-04-23 13:01 | Outpatient (BNVA) | payer MEDICARE, MEDICAID, SELFPAY | PROVIDERS: PCP Family Medicine; Visit Provider Nurse Practitioner Family | DX: I73.9 Peripheral vascular disease, unspecified (principal); L97.512 Non-pressure chronic ulcer of other part of right foot with fat layer exposed; Z89.421 Acquired absence of other right toe(s) | CPT/HCPCS: 97597 ==

== ENCOUNTER → 2023-04-30 10:43 | Outpatient (BNVA) | payer MEDICARE, MEDICAID, SELFPAY | PROVIDERS: PCP Family Medicine; Visit Provider Thoracic Surgery (Cardiothoracic Vascular Surgery) | DX: I70.235 Atherosclerosis of native arteries of right leg with ulceration of other part of foot (principal); L97.512 Non-pressure chronic ulcer of other part of right foot with fat layer exposed | CPT/HCPCS: 97597 ==

== ENCOUNTER 2023-05-02 06:00 | Outpatient (RCR) | payer MEDICARE, MEDICAID, SELFPAY | END 2023-05-31 23:59 | disposition home or self-care (01) | LOC: SPT 06:00 | PROVIDERS: PCP Family Medicine; Visit Provider Family Medicine | DX: Z89.612 Acquired absence of left leg above knee (principal) | CPT/HCPCS: 97110; 97116 ==

== ENCOUNTER → 2023-05-07 13:05 | Outpatient (BNVA) | payer MEDICARE, MEDICAID, SELFPAY | PROVIDERS: PCP Family Medicine; Visit Provider Thoracic Surgery (Cardiothoracic Vascular Surgery) | DX: I70.25 Atherosclerosis of native arteries of other extremities with ulceration (principal); L97.512 Non-pressure chronic ulcer of other part of right foot with fat layer exposed | CPT/HCPCS: 97597; A6021 ==

== ENCOUNTER → 2023-05-14 10:49 | Outpatient (BNVA) | payer MEDICARE, MEDICAID, SELFPAY | PROVIDERS: PCP Family Medicine; Visit Provider Thoracic Surgery (Cardiothoracic Vascular Surgery) | DX: I73.9 Peripheral vascular disease, unspecified (principal); L97.512 Non-pressure chronic ulcer of other part of right foot with fat layer exposed | CPT/HCPCS: 97597 ==

== ENCOUNTER → 2023-05-21 13:23 | Outpatient (BNVA) | payer MEDICARE, MEDICAID, SELFPAY | PROVIDERS: PCP Family Medicine; Visit Provider Thoracic Surgery (Cardiothoracic Vascular Surgery) | DX: I73.9 Peripheral vascular disease, unspecified (principal); L97.512 Non-pressure chronic ulcer of other part of right foot with fat layer exposed | CPT/HCPCS: 97597; A6021 ==

== ENCOUNTER → 2023-05-28 14:04 | Outpatient (BNVA) | payer MEDICARE, MEDICAID, SELFPAY | PROVIDERS: PCP Family Medicine; Visit Provider Nurse Practitioner Family | DX: I73.9 Peripheral vascular disease, unspecified (principal); L97.512 Non-pressure chronic ulcer of other part of right foot with fat layer exposed | CPT/HCPCS: 99213; A6021 ==

== ENCOUNTER 2023-05-29 09:03 | Outpatient (CLI) | payer MEDICARE, MEDICAID, SELFPAY ==
--- NOTE | 2023-05-29 09:09 | CT_ITS ---
WS: [id number] LDCT LUNG CANCER SCREENING TECHNIQUE: Noncontrast CT of the chest with coronal and sagittal reformatted images. CLINICAL INFORMATION: HX OF TOBACCO USE COMPARISON: None. DLP: 188.41 mGy.cm DIvol: Mean CTDIvol: 2.60 (mGy),Mean CTDIvol: 2.30 (mGy) All CT scans at [facility] use at least one of these dose optimization techniques: automat ed exposure control; mA and/or kV adjustment per patient size (includes targeted exams where dose is matched to clinical indication); or iterative reconstruction. FINDINGS: Subsegmental atelectasis in the lung bases. A few tiny 2 to 3 mm nodules in the RIGHT upper lobe and RIGHT lower lobe. No suspicious pulmonary parenchymal opacities. Normal caliber thoracic aorta. Aortic calcification. Coronary calcification. No missile or hilar lymp hadenopathy. No axillary lymphadenopathy. Trace pericardial fluid. Adrenal glands are normal. Normal GE junction. Splenic artery calcification. Mild chronic anterior we dging at T7 unchanged. IMPRESSION: CT/CT lung screening [id number] LUNG-RADS: 2-Benign Appearance or Behavior FOLLOW UP: 12 Month: Continue annual screening with LDCT
== END 2023-05-29 09:04 | disposition home or self-care (01) ==
LOC: RAD 09:04
PROVIDERS: PCP Family Medicine; Visit Provider Family Medicine
DX: Z87.891 Personal history of nicotine dependence (principal); Z12.2 Encounter for screening for malignant neoplasm of respiratory organs
CPT/HCPCS: 71271

== ENCOUNTER → 2023-06-04 14:30 | Outpatient (BNVA) | payer MEDICARE, MEDICAID, SELFPAY | PROVIDERS: PCP Family Medicine; Visit Provider Thoracic Surgery (Cardiothoracic Vascular Surgery) | DX: I73.9 Peripheral vascular disease, unspecified (principal); L97.511 Non-pressure chronic ulcer of other part of right foot limited to breakdown of skin | CPT/HCPCS: 97597; A6021 ==

== ENCOUNTER → 2023-06-11 15:09 | Outpatient (BNVA) | payer MEDICARE, MEDICAID, SELFPAY | PROVIDERS: PCP Family Medicine; Visit Provider Thoracic Surgery (Cardiothoracic Vascular Surgery) | DX: I73.9 Peripheral vascular disease, unspecified (principal); L97.511 Non-pressure chronic ulcer of other part of right foot limited to breakdown of skin | CPT/HCPCS: 97597; A6021 ==

== ENCOUNTER → 2023-06-18 14:12 | Outpatient (BNVA) | payer MEDICARE, MEDICAID, SELFPAY | PROVIDERS: PCP Family Medicine; Visit Provider Thoracic Surgery (Cardiothoracic Vascular Surgery) | DX: I73.9 Peripheral vascular disease, unspecified (principal); L97.511 Non-pressure chronic ulcer of other part of right foot limited to breakdown of skin | CPT/HCPCS: 97597; A6021 ==

== ENCOUNTER → 2023-07-04 10:14 | Outpatient (BNVA) | payer MEDICARE, MEDICAID, SELFPAY | PROVIDERS: PCP Family Medicine; Visit Provider Thoracic Surgery (Cardiothoracic Vascular Surgery) | DX: I73.9 Peripheral vascular disease, unspecified (principal); L97.512 Non-pressure chronic ulcer of other part of right foot with fat layer exposed | CPT/HCPCS: 11042; 97597 ==